=== PATIENT | female | born 1940 | race African-American/Black ===

== ENCOUNTER 2016-10-23 02:42 | Inpatient (IN) ==
[~2016-10-23 02:42] MED LIST: ASPIRIN PO STA
[2016-10-23 03:05] LABS: HEMATOCRIT 36.4 % (37.0-47.0); HEMOGLOBIN 12.4 g/dL (12.0-16.0); IMM GRAN# 0.02 X1000 (0.0-0.04); IMM GRAN% 0.2 % (0.0-0.5); LYMPH# 0.66 X1000 (1.2-3.4); LYMPH% 5.4 % (20.5-51.1); MANUAL DIFF NEEDED? YES; MCH 24.7 PG (27-31); MCHC 34.1 g/dL (33-37); MCV 72.4 FL (81-99); MONO# 0.43 X1000 (0.11-0.59); MONO% 3.5 % (1.7-9.3); MPV 10.2 FL (7.4-10.4); NEUT% 90.9 % (42.2-75.2); PLT 562 X1000 (130-400); RBC 5.03 XMIL (4.2-5.4)
[2016-10-23 03:27] LABS: AGAP 14; ALBUMIN 3.4 g/dL (3.5-5.0); ALKALINE PHOSPHATASE 64 U/L (32-104); BUN 16 mg/dL (8-22); CHLORIDE 96 mmol/L (98-107); CK PROFILE 83 U/L (24-173); COSMO 279; GOT 22 U/L (10-30); GPT 15 U/L (10-36); MAGNESIUM 2.4 mg/dL (1.5-2.7); SODIUM 136 mmol/L (136-145); TCO2 26 mmol/L (25-35); TOTAL BILIRUBIN 0.48 mg/dL (0.20-1.00); TOTAL PROTEIN 7.8 g/dL (6.3-8.3)
[2016-10-23] MEDS ORDERED: ROCEPHIN 1 GM/NS 1 GM/50 ML IVPB IV ONE (03:32)
[2016-10-23 03:41] LABS: INR 1.17; PROTIME 12.4 Seconds (9.2-11.7); PTT 25.5 Seconds (22.0-36.0)
[2016-10-23] MEDS ORDERED: LASIX IV ONE (04:34)
--- NOTE | 2016-10-23 04:46 | PROVIDER DOCUMENTATION ---
This chart was entered by Aidee Webber Scribe, acting as scribe for Cornelius Rea MD. HPI-Respiratory General - General Stated Complaint: sob Time Seen by Provider: 10/23/16 02:45 Source: patient Allergies/Adverse Reactions: Patient Allergies Allergy/AdvReac Type Severity Reaction Status Date / Time clarithromycin Allergy NAUSEA Verified 10/23/16 03:09 doxycycline Allergy NAUSEA Verified 10/23/16 03:09 hydrocodone AdvReac racing Verified 10/23/16 03:09 heart Home Medications: Home Medication List Medication Instructions Recorded Confirmed Last Taken Type Aspirin [Aspir-Low] 81 mg PO DAILY 10/02/16 10/23/16 3 Weeks Ago History Calcium Carb/Vit D3/Minerals 600 each PO DAILY 10/02/16 10/23/16 2 Days Ago History [Caltrate 600+D Plus Chew] Calcium Carbonate [Oscal 500] 1 each PO DAILY 10/02/16 10/23/16 3 Weeks Ago History Diltiazem HCl [Cardizem] 120 mg PO DAILY 10/02/16 10/23/16 10/22/16 History Folic Acid 0.4 mg PO DAILY 10/02/16 10/23/16 10/22/16 History Gabapentin 100 mg PO BID 10/02/16 10/23/16 Unknown History Glimepiride 1 mg PO BID 10/02/16 10/23/16 10/22/16 14:00 History LISINOpril [Prinivil] 2.5 mg PO DAILY 10/02/16 10/23/16 10/22/16 History Meloxicam 7.5 mg PO PRN PRN 10/02/16 10/23/16 Unknown History Multivit-Minerals/Folic/Ginkgo 1 each PO DAILY 10/02/16 10/23/16 10/22/16 History [One Daily For Women 50+ Adv Tb] [place]-3 Fatty Acids/Fish Oil [Fish 1 each PO DAILY 10/02/16 10/23/16 2 Weeks Ago History Oil 1,000 mg Capsule] ROSUVAstatin [Crestor] 10 mg PO Q2D 10/02/16 10/23/16 10/20/16 History Vitamin E 400 unit PO DAILY 10/02/16 10/23/16 10/22/16 History Famotidine [Pepcid] 20 mg PO DAILY 10/23/16 10/23/16 10/22/16 History Furosemide [Lasix] 20 mg PO DAILY 10/23/16 10/23/16 10/22/16 History Guaifenesin/Codeine Phosphate 5 ml PO Q12H PRN PRN 10/23/16 10/23/16 Unknown History [Codeine-Guaifen 10-100 mg/5 ml] Ondansetron HCl [Zofran] 8 mg PO Q8HR 10/23/16 10/23/16 Unknown History Prochlorperazine [Compazine] 10 mg PO TID PRN PRN 10/23/16 10/23/16 Unknown History - History of Present Illness-Resp Nature of Presenting Problem: 76 year old F presents to the ED with a cc of shortness of breath, weakness, and fatigue with an onset of 2 days ago. 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 Pt states that she has also had decreased appetite. Severity in ED: reports: mild Onset/Duration: reports: 2 days ago Timing: reports: still present Associated Symptoms: reports: shortness of breath Similar Symptoms Previously?: No Recently seen or treated by another doctor?: Yes Review of Systems - Adult - REVIEW OF SYSTEMS - ADULT Constitutional: reports: fatique. denies: chills, fever Eyes: reports: no symptoms reported Ears, Nose, Mouth & Throat: reports: no symptoms reported Cardiovascular: reports: no symptoms reported Respiratory: reports: shortness of breath. denies: cough Gastrointestinal: denies: nausea, vomiting Genitourinary: reports: no symptoms reported Musculoskeletal: reports: muscle weakness. denies: muscle aches Integumentary: denies: skin sores/ulcer, skin thickening Neurological: denies: dizziness/vertigo, headache/migraines Psychiatric: reports: no symptoms reported Endocrine: reports: no symptoms reported Hematologic/Lymphatic: reports: no symptoms reported Allergic/Immunologic: reports: no symptoms reported All Other Systems: Reviewed and Negative Past History - Adult - PAST MEDICAL HISTORY-ADULT Review of Records: reports: Nursing Assessment Review, Medications Reviewed Major Childhood Illnesses: reports: denies history Cardiovascular: reports: HTN Obstetrical/Gynecological: reports: uterine/ovarian cancer - PRIOR SURGERIES/PROCEDURES Surgical/Procedure History: reports: none - IMMUNIZATION STATUS Childhood Immunizations: See Nurse Assessment Flu Vaccine: See Nurse Assessment - SOCIAL HISTORY Smoking: non-smoker Substance Use: none/never Alcohol Use Frequency: never Physical Exam-General - PHYSICAL EXAM-ADULT Initial Vital Signs Reviewed: Yes - CONSTITUTIONAL General Appearance: appears well, alert, no apparent distress - RESPIRATORY Respiratory: rhonchi - CARDIOVASCULAR Cardiovascular: normal peripheral pulses, regular rate, rhythm, no edema - GASTROINTESTINAL (ABDOMEN) Abdominal Exam: distended, rigid - SKIN Integumentary: normal color, normal turgor, warm/dry - PSYCHIATRIC Psych/Mental Status: normal mood/affect, normal thought content, normal thought process, oriented x 3 Progress - PLAN OF CARE/RESULTS Progress/Plan/Lab Results: Vital Signs - 8 hr 10/23/16 02:49 Temperature 98.6 F Pulse Rate 114 H Respiratory Rate 31 H Blood Pressure 129/67 O2 Sat by Pulse Oximetry 94 L Laboratory Results - last 24 hr 10/23/16 10/23/16 10/23/16 02:45 02:45 02:45 WBC 12.21 H RBC 5.03 Hgb 12.4 Hct 36.4 L MCV 72.4 L MCH 24.7 L MCHC 34.1 RDW Std Deviation 16.2 H Plt Count 562 H MPV 10.2 Immature Gran % (Auto) 0.2 Neut % (Auto) 90.9 H Lymph % (Auto) 5.4 L Lake % (Auto) 3.5 Eos % (Auto) 0.0 Baso % (Auto) 0.0 Immature Gran # (Auto) 0.02 Neut # (Auto) 11.10 H Lymph # (Auto) 0.66 L Lake # (Auto) 0.43 Eos # (Auto) 0.00 Baso # (Auto) 0.00 Segmented Neutrophils Cancelled Band Neutrophils Cancelled Lymphocytes Cancelled Monocytes Cancelled Eosinophils Cancelled Basophils Cancelled Metamyelocytes Cancelled Myelocytes Cancelled Promyelocytes Cancelled Nucleated RBCs Cancelled Atypical Lymphocytes Cancelled Blast Cells Cancelled Hypochromia Cancelled Vacuolization Cancelled Toxic Granulation Cancelled Dohle Bodies Cancelled Large Platelets Cancelled Polychromasia Cancelled Poikilocytosis Cancelled Basophilic Stippling Cancelled Anisocytosis Cancelled Microcytosis Cancelled Macrocytosis Cancelled Spherocytes Cancelled Sickle Cells Cancelled Target Cells Cancelled Ovalocytes Cancelled Stomatocytes Cancelled [place] Bodies Cancelled [place] Cells Cancelled Unidentified Cells Cancelled Schistocytes Cancelled PT INR PTT (Actin FS) Sodium 136 Potassium 4.0 Chloride 96 L Carbon Dioxide 26 Anion Gap 14 BUN 16 Creatinine 0.7 Estimated GFR/1.73 m2 > 60 BUN/Creatinine Ratio 23 Glucose 208 H POC Glucose Calculated Osmolality 279 Calcium 9.0 Magnesium 2.4 Total Bilirubin 0.48 AST 22 ALT 15 Alkaline Phosphatase 64 Creatine Kinase 83 Troponin T Tre-S-Cltgmdmqkdu Pept 632 H Total Protein 7.8 Albumin 3.4 L Globulin 4.4 Albumin/Globulin Ratio 0.8 10/23/16 10/23/16 10/23/16 02:45 03:25 03:26 WBC RBC Hgb Hct MCV MCH MCHC RDW Std Deviation Plt Count MPV Immature Gran % (Auto) Neut % (Auto) Lymph % (Auto) Lake % (Auto) Eos % (Auto) Baso % (Auto) Immature Gran # (Auto) Neut # (Auto) Lymph # (Auto) Lake # (Auto) Eos # (Auto) Baso # (Auto) Segmented Neutrophils Band Neutrophils Lymphocytes Monocytes Eosinophils Basophils Metamyelocytes Myelocytes Promyelocytes Nucleated RBCs Atypical Lymphocytes Blast Cells Hypochromia Vacuolization Toxic Granulation Dohle Bodies Large Platelets Polychromasia Poikilocytosis Basophilic Stippling Anisocytosis Microcytosis Macrocytosis Spherocytes Sickle Cells Target Cells Ovalocytes Stomatocytes [place] Bodies [place] Cells Unidentified Cells Schistocytes PT 12.4 H INR 1.17 PTT (Actin FS) 25.5 Sodium Potassium Chloride Carbon Dioxide Anion Gap BUN Creatinine Estimated GFR/1.73 m2 BUN/Creatinine Ratio Glucose POC Glucose 215 H Calculated Osmolality Calcium Magnesium Total Bilirubin AST ALT Alkaline Phosphatase Creatine Kinase Troponin T < 0.010 Stj-S-Pxthjomryhs Pept Total Protein Albumin Globulin Albumin/Globulin Ratio Orders Category Date Time Status Cardiac Monitoring DIRECTED Care 10/23/16 02:40 Active Saline Loc NOW Care 10/23/16 02:40 Active CHEST-1 VIEW [RAD] Stat Exams 10/23/16 02:40 Taken BLOOD CULTURE [BLDCUL] Stat Lab 10/23/16 03:45 Ordered CBC WITH ELECTRONIC DIFF [HEME] Stat Lab 10/23/16 02:45 Completed CK PROFILE [SP CHEM] Stat Lab 10/23/16 02:45 Completed COMPREHENSIVE METABOLIC PANEL [CHEM] Stat Lab 10/23/16 02:45 Completed LACTATE, PLASMA [CHEM] Stat Lab 10/23/16 03:45 Ordered MAGNESIUM [CHEM] Stat Lab 10/23/16 02:45 Completed PRO B-NATRIURETIC PEPTIDE Stat Lab 10/23/16 02:45 Completed PROTIME WITH INR [COAG] Stat Lab 10/23/16 03:25 Completed PTT [COAG] Stat Lab 10/23/16 03:25 Completed TROPONIN T Stat Lab 10/23/16 02:45 Completed Aspirin Med 10/23/16 02:39 Discontinued 325 mg PO STAT STA CefTRIAXONE 1 GM/NS [Rocephin 1 gm/Ns] Med 10/23/16 03:32 Discontinued 1 gm in 50 ml IV NOW Furosemide [Lasix] Med 10/23/16 04:34 Discontinued 60 mg IV NOW ONE EKG [EKG] Stat Ther 10/23/16 02:40 Ordered Transfer/Admit Order [TRANSFER] Routine Transfer 10/23/16 04:43 Ordered Result Diagrams: 10/23/16 02:45 10/23/16 02:45 - EKG 1 Time of EKG reading by physician:: 02:34 EKG Read and Signed by:: Cornelius Rea EKG Interpretation (*Must complete 3 of following elements*): Normal Rate: 112 Rhythm: sinus tachycardia Colo: normal Departure - Departure Time of Disposition Decision: 04:44 DIAGNOSIS: Pneumonia Disposition: ADMITTED INPATIENT 09 Certified Medical Emergency: Emergent Condition: Stable - Critical Care Note This patient required my direct & personal management of CC.: Yes Attestation - Physician/ FAUSTO Attestation Patient care was provided by Advanced Practice Provider:: Yes Advanced Practice Provider documentation review:: The Mid-level provider documentation, treatment plan and medical decision making was reviewed by the physician who agrees with all treatment and medical decision making by the MLP. The physician spent face to face time with patient:: Yes Advanced Practice Provider documentation review:: The physician spent face to face time with this patient and agrees with all MLP documentation, treatment, and medical decision making by the MLP. See provider notes for further information. This chart was documented by the indicated scribe, (Aidee Webber Scribe) and accurately reflects the services I performed and decisions made by , Cornelius Rea MD, as attested by the provider's signature.
[2016-10-23] MEDS ORDERED: ZOFRAN IV ONE (05:03)
--- NOTE | 2016-10-23 05:10 | EKG Report ---
Test Performed on : 10/23/2016 02:34:19 AM Test Reason : SOB Blood Pressure : / mmHG Vent. Rate : 112 BPM Atrial Rate : 112 BPM P-R Int : 124 ms QRS Dur : 082 ms QT Int : 334 ms P-R-T Axes : 009 043 039 degrees QTc Int : 455 ms Sinus tachycardia. Otherwise normal ECG When compared with ECG of 23-APR-2008 10:45, No significant change was found Unconfirmed Result
[2016-10-23] MEDS ORDERED: PROTONIX IV SCH (06:08)
[2016-10-23] MEDS ORDERED: TYLENOL PO PRN (06:08)
[2016-10-23] MEDS ORDERED: COMPAZINE PO PRN (06:08)
[2016-10-23] MEDS ORDERED: ROBITUSSIN-AC PO PRN (06:08)
--- NOTE | 2016-10-23 06:16 | Diag Imaging Result Document ---
PROCEDURE NAME: CHEST-1 VIEW - 10/23/2016 PORTABLE CHEST: COMPARISON: 09/25/2016. FINDINGS: There is a moderate-sized left effusion. This is larger than on the prior exam. Poor inspiratory effort. I believe there is a small right effusion. There is central vascular prominence. The lung apices remain clear. There is atelectasis or infiltrates in the lower lungs. IMPRESSION: Interval worsening.
--- NOTE | 2016-10-23 06:29 | Diag Imaging Result Document ---
PROCEDURE NAME: LAT. DECUBITUS VIEW-LEFT - 10/23/2016 LEFT SIDE DOWN LATERAL DECUBITUS VIEW: COMPARISON: An upright exam performed earlier. FINDINGS: There is layering of a moderate to large left pleural effusion.
[2016-10-23 06:31] LABS: URINE CULTURE NEEDED? NO; URINE MICRO REVIEW NEEDED? NO; URINE SOURCE CLEAN CATCH
[2016-10-23] MEDS: CRESTOR PO SCH (06:41)
[2016-10-23] MEDS: LEVAQUIN 750 MG in NS 150 ML IV SCH (06:41)
[2016-10-23] MEDS: LOVENOX SUBQ SCH (06:42)
[2016-10-23] MEDS: SODIUM CHLORIDE 0.9% INJ SCH (06:42)
[2016-10-23 06:43] LABS: BILIRUBIN URINE NEGATIVE (NEGATIVE); BLOOD URINE NEGATIVE (NEGATIVE); COLOR YELLOW; GLUCOSE URINE NEGATIVE (NEGATIVE); LEUKOCYTES URINE NEGATIVE (NEGATIVE); NITRITE URINE NEGATIVE (NEGATIVE); PH URINE 6.5; PROTEIN URINE NEGATIVE (NEGATIVE); SP GRAVITY URINE 1.011; TURBIDITY URINE CLEAR (CLEAR); UROBILINOGEN URINE NORMAL (NORMAL)
[2016-10-23 06:45] LABS: UR EPITHELIAL CELLS <10 /HPF (<10); URINE BACTERIA NEGATIVE /HPF; URINE RBC <10 /HPF (<10); URINE WBC <10 /HPF (<10)
[2016-10-23] MEDS: HUMALOG SUBQ SCH ×3 (06:49→23:09)
--- NOTE | 2016-10-23 08:36 | HISTORY AND PHYSICAL ---
PRIMARY CARE PROVIDER: Katherin Holly MD ONCOLOGIST: Dahlia Albert MD CHIEF COMPLAINT: Shortness of breath. HISTORY OF PRESENT ILLNESS: Ms. Bolton is a 76-year-old, female with a past medical history most notable for diabetes mellitus type 2, hypertension, hyperlipidemia and recent diagnosis of ovarian cancer with metastasis intraperitoneally. She did receive her first chemo treatment on Wednesday approximately 2 days ago. The patient reports that since October, she has had issues with shortness of breath. This has become increasingly worse. Also, over the past few days, she has had productive cough with thick white sputum, fever, decreased appetite, as well as nausea. She did report that she had 1 episode of vomiting yesterday. She has also reported some increased weakness and fatigue as well. The patient is not normally on oxygen therapy at home. Upon arrival to the ER tonight, she was slightly hypoxic with a room air oxygen saturation of 89%. Since being placed on nasal cannula at 2 L, this has improved with the last oxygen saturation of 96%. She denies any headache, dizziness, lightheadedness, chest pain, abdominal pain or diarrhea. She reports her last bowel movement was yesterday and was normal in color. She denies any hematemesis, hematochezia or melena. She denies any dysuria or urinary frequency. She also denies any decrease and her urinary output. She denies any pain, numbness, tingling or swelling in extremities. She also denies any previous history of pulmonary embolism or DVT. Upon further evaluation in the ER, patient's initial chest x-ray does show a moderate sized left pleural effusion, as well as a possible right small right pleural effusion as well. There is also noted atelectasis or infiltrates in the lower lungs. At this time, the patient will be admitted for further treatment evaluation of her bilateral lower lobe pneumonia, as well as moderate-to- large left pleural effusion. REVIEW OF SYSTEMS: A 12-point review of systems was conducted with the patient and all were negative except for pertinent positives mentioned above in the HPI. PAST MEDICAL HISTORY: 1. Diabetes mellitus type 2. 2. Hypertension. 3. Hyperlipidemia. 4. Recent diagnosis of ovarian cancer with metastasis intraperitoneally. She is currently being followed by Dr. Albert and received her 1st chemo treatment on Wednesday, approximately 2 days ago. PAST SURGICAL HISTORY: 1. Tubal ligation. 2. Cholecystectomy. 3. Umbilical hernia repair. 4. Hysterectomy. 5. Appendectomy. FAMILY HISTORY: Positive for diabetes mellitus and hypertension in her mother. Her father had a history of hypertension and heart disease. She does have 1 brother who has a history of stroke and 1 sister with a history of hypertension. SOCIAL HISTORY: Patient denies any previous or present history of tobacco, alcohol or illicit drug use. ALLERGIES: Patient reports allergies to clarithromycin, doxycycline and hydrocodone. HOME MEDICATIONS: 1. Aspirin 81 mg p.o. daily. 2. Caltrate 600 Plus D, chewable, 600 mg p.o. daily. 3. Os-[place]att 500 one p.o. daily. 4. Cardizem 120 mg p.o. daily. 5. Pepcid 20 mg p.o. daily. 6. Folic acid 0.4 mg p.o. daily. 7. Lasix 20 mg p.o. daily. 8. Gabapentin 100 mg p.o. b.i.d. 9. Glimepiride 1 mg p.o. b.i.d. 10. Codeine-guaifenesin 10-100 mg per 5 mL, cough suspension 5 mL p.o. q.12 hours p.r.n. for cough. 11. Lisinopril 2.5 mg p.o. daily. 12. Multivitamin 1 p.o. daily. 13. Fish oil 1000 mg capsule 1 p.o. daily. 14. Zofran 8 mg p.o. q.8 hours p.r.n. for nausea. 15. Compazine 10 mg p.o. t.i.d. p.r.n. for nausea. 16. Crestor 10 mg p.o. every 2 days. 17. Vitamin E 400 units p.o. daily. DIAGNOSTIC DATA LABORATORY RESULTS: White blood cell count 12.2, hemoglobin 12.4, hematocrit 36.4, platelet count is 562,000. PT 12.4, INR of 1.17, PTT 25.5. Sodium 136, potassium 4, chloride 96, bicarb 26, BUN 16, creatinine 0.7. Glucose is 208, calcium 9, magnesium 2.4. Liver function tests were within normal limits. CK 83, troponin less than 0.01. ProBNP 632. Her urinalysis was obtained via clean catch, was negative for protein, ketones, blood, nitrites, leukocytes, or bacteria. EKG showed sinus tachycardia at a rate of 112 with a QTc of 455. Chest, 1 view, was obtained which did show moderate sized left effusion. This appeared larger than on prior exam. There was also noted a possible right small pleural effusions as well. Also, noted was atelectasis or infiltrates in lower lungs. This is per the radiologist. We did obtain a left lateral decubitus view, which did show layering of a [id number] left pleural effusion also. Pending diagnostic studies at this time are blood cultures and sputum culture. PHYSICAL EXAMINATION: VITAL SIGNS: Temperature 98.2 degrees, heart rate 110, respirations 24, blood pressure is 122/64. Oxygen saturation is 96% nasal cannula at 2 L. GENERAL: Ms. Bolton is a pleasant 76-year-old, female who was resting in the ER stretcher. She was in no acute distress. She was awake, alert and able to answer all questions appropriately. HEENT: Head is atraumatic, normocephalic. Pupils are equal, round, reactive to light and were 3 mm bilaterally and brisk. Oral mucosa was slightly dry. Oropharynx was clear. NECK: Supple. Trachea midline. No JVD noted. CARDIOVASCULAR: Patient has normal S1, S2. No murmurs, gallops, rubs appreciated with a slightly tachycardic rate that is regular. PULMONARY: Patient has symmetrical chest expansion bilaterally. Lung sounds were clear in bilateral upper lung moreno. They were diminished bilaterally in the lower lung moreno. ABDOMEN: Soft, nontender, nondistended. Bowel sounds were present in all 4 quadrants and normoactive. EXTREMITIES: No cyanosis, clubbing, or edema noted. Pulse motor and sensory were intact in all extremities as well. Pedal pulses were 2+ bilaterally. INTEGUMENTARY: The patient's skin color is normal for her race and is dry and intact. No lesions or sores noted. NEUROLOGICAL: Patient is alert, oriented to person, place, time, and situation. Cranial nerves 2- 12 are grossly intact. ASSESSMENT AND PLAN: 1. Bilateral lower lobe pneumonia and [id number] left pleural effusion. For this, we have placed the patient on Levaquin 750 mg IV q.24 hours. Blood cultures as well as sputum culture have been obtained. We will continue with aggressive pulmonary toilet, incentive spirometry and will monitor her respiratory status closely. At this time, the patient is maintaining adequate oxygen saturation of 96% on nasal cannula at 2 L and is in no respiratory distress. 2. Leukocytosis. This is likely secondary to her pneumonia. We will continue treatment as mentioned per #1 and continue to follow. 3. Ovarian cancer with metastasis intraperitoneally. We have placed a consult with Dr. Albert, who is the patient's oncologist and will await her evaluation and further recommendations for management of this. 4. Diabetes mellitus type 2. The patient normally takes glimepiride 1 mg p.o. b.i.d., though for better blood glucose control, we have placed her on a sliding scale lispro insulin per low- dose protocol and we will do pattern fingerstick blood sugars and closely monitor her glucose levels. 5. History of tachycardia. The patient denied any known previous history of atrial fibrillation or atrial flutter. She reported that she takes the Cardizem for an elevated heart rate. We will continue this. She has been placed on telemetry and we will closely monitor her cardiovascular status. 6. Hypertension. Will continue her lisinopril. 7. Hyperlipidemia. We will continue her Crestor. The patient will be placed on the medical floor with telemetry. She will have vital signs q.4 hours. We will do strict intake and output q.8 hours. She will be on a diabetic diet. DVT prophylaxis provided with Lovenox 40 mg subcutaneously q.24 hours. We will repeat a CBC and BMP in the morning. Further orders and recommendations pending hospital course, diagnostic studies and physician evaluation. Dictated by KEYSHA Sherwood for Tye Miranda MD cc: MD Katherin Isabel MD Heather Shah, MD MTDD
[2016-10-23] MEDS: FOLIC ACID PO SCH (09:20)
[2016-10-23] MEDS: THERA M PLUS PO SCH (09:20)
[2016-10-23] MEDS: CARDIZEM CD PO SCH (09:20)
[2016-10-23] MEDS: NEURONTIN PO SCH ×2 (09:20→20:17)
[2016-10-23] MEDS: ASPIRIN EC PO SCH (09:21)
[2016-10-23] MEDS: PRINIVIL PO SCH (09:21)
[2016-10-23] MEDS: PEPCID PO SCH (09:22)
--- NOTE | 2016-10-23 13:03 | CONSULTATION ---
DATE OF CONSULTATION: 10/23/2016 REASON FOR CONSULTATION: The patient known to us for peritoneal/ovarian carcinoma. HISTORY OF PRESENT ILLNESS: Ms. 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 She recently received her 1st dose of chemotherapy with carbo and Taxol on 10/21/2016. Patient has been having shortness of breath for some time which was felt to be related to her bilateral pleural effusions, as well as the ascites that she has had since her diagnosis. The patient's Lasix was increased as an outpatient. After her chemo treatment, the patient returned home and started feeling even more weak and more short of breath. She presented to the emergency department and a chest x-ray there revealed her to have bilateral pleural effusions, as well as the possibility of some infiltrates. Patient was also hypoxic with an O2 saturation of 89% upon presentation. She has been admitted for further evaluation and treatment. PAST MEDICAL HISTORY: 1. Diabetes mellitus type 2. 2. Hypertension. 3. Hyperlipidemia. 4. Ovarian carcinoma. 5. 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 PAST SURGICAL HISTORY: 1. Tubal ligation. 2. Cholecystectomy. 3. Umbilical hernia repair. 4. Hysterectomy. 5. Appendectomy. SOCIAL HISTORY: Patient denies any tobacco, alcohol or illicit drug use. She has a very supportive family. FAMILY HISTORY: Positive for diabetes as well as hypertension and heart disease. Also has a history of stroke in her family. REVIEW OF SYSTEMS: As per the HPI. All else is either negative or noncontributory. PHYSICAL EXAMINATION: Vital Signs: Temperature 98.8 degrees, heart rate 103, respirations 18, blood pressure 104/41, O2 saturations 95% on 2 L of nasal cannula. General: -Citizen Of [place] female, sitting up in her hospital bed. She has several family members around her. She is in no acute distress. HEENT: Head appears to be normocephalic, atraumatic. Eyes: Pupils equal, round, reactive. Ears, nose, throat, neck, and mouth: Oral mucosa appears to be normal. Trachea is midline. Cardiovascular: Tachycardia noted. Regular rhythm. Respiratory: Chest is essentially clear to auscultation bilaterally. She does have decreased breath sounds bilaterally in her bases. Gastrointestinal: Abdomen is distended with some ascites. Positive bowel sounds. Musculoskeletal: No bony abnormalities. Extremities: She has some bilateral extremity edema that appears to be overall stable. Neurologic: Patient is alert, and oriented x3. No focal motor deficits. She does appear to be weak. LABORATORY STUDIES: White blood cells 12.21, hemoglobin 12.4, hematocrit 36.4, platelets 562,000. Sodium 136, potassium 4.0, chloride 96, CO2 26, BUN 16, creatinine 0.7, ProBNP is 632. She has a moderate-sized left pleural effusion. ASSESSMENT AND PLAN: 1. Primary peritoneal carcinoma/ovarian carcinoma. Patient is currently receiving chemotherapy as an outpatient. She is status post cycle 1, day 1 of Carbo/Taxol on 10/21/2016. 2. Infiltrates on chest x-ray/pneumonia. Patient is currently receiving IV antibiotics. She also is receiving O2 support. Continue both. Continue to monitor her chest x-ray. Just antibiotics as needed. 3. Bilateral pleural effusions with the left being slightly worse when compared to previous. Continue to monitor. Consider a paracentesis if she were to become very symptomatic. She has received some diuresis as well. Continue to monitor. 4. Decreased appetite. Patient and family report that she has a very decreased appetite. We will go ahead and encourage her to consume some dietary supplements. Will order those to be given to her with her meals. Also recommended her trying to divide her meals up into 2 smaller meals. We will continue to monitor. We want to thank you for consulting us on this patient. We will continue to follow along and adjust our treatment plan per her hospital course. Dictated by JEANNIE Samano for Dahlia Albert MD cc: Dahlia Albert MD
[2016-10-23] MEDS ORDERED: VANCOMYCIN IV PER PHARMACY MISC SCH (16:45)
--- NOTE | 2016-10-23 17:19 | PROGRESS NOTE ---
DATE: 10/23/2016 SUBJECTIVE: Today, Ms. Bolton referred to continue feeling the same. She is extremely weak and having difficulty breathing. Has been progressively declining over the course of a couple of weeks. OBJECTIVE: Vital Signs: Blood pressure is 104/41, pulse of 103, respirations 18, temperature 98.8 degrees. General: Ms. Bolton is a 76-year-old female. She is in bed, in mild respiratory distress. HEENT: Mucosa pink and moist. Anicteric. Acyanotic. Neck: Supple. Chest: Air entry is bilaterally reduced, more so to the right posterior lung field. There are some bibasilar crepitations. Cardiovascular: Regular rate and rhythm. Abdomen : Soft. It is distended. There is an infraumbilical surgical scar. There is an irregular mass in the right lower abdomen. Central Nervous System: Patient is alert and oriented. No focal neurological deficit. LABORATORY DATA: WBC is 12.21, hemoglobin is 12.4, platelet count is 562,000. Sodium is 136, potassium is 4.4, chloride is 96, bicarbonate is 26, protein is 7.8. REVIEW OF PREVIOUS REPORT: There is a cytology report of abdominal ascitic fluid that is consistent with malignancy from ovarian component. This was done on 10/02/2016. IMAGING: A CT scan of the abdomen and pelvis which was done on 09/25/2016 shows large omental cakes of masses consistent with intraperitoneal spread malignancy, ovarian cancer suspected. There is ascites. There are bilateral pleural effusions. ASSESSMENT: 1. Suspected right lower lobe pneumonia with pleural effusions. The patient is currently on Levaquin. However, because patient had chemotherapy just about 3 days ago and she has been in contact with healthcare, I will therefore go ahead and treat her for healthcare-associated pneumonia. Will start her on double coverage for Pseudomonas and also cover her for Methicillin-resistant Staphylococcus aureus. We will therefore add cefepime and vancomycin. 2. Metastatic ovarian cancer. The patient follows up with Dr. Albert. 3. Diabetes mellitus, stable. 4. Hypertension. 5. Chronically ill/failure to thrive, likely due to underlying malignancy. I think patient is actually looking extremely sick due to the underlying malignancy; however, the family and herself want to pursue every possible therapy that will supposedly make her better. We did discuss DNR status and they want her to be still full code. Patient has microcytic anemia. We will do iron studies to r/o possible underlying iron deficiency. cc: Brayden Ruiz MD MTDD
[2016-10-23] MEDS ORDERED: VANCOMYCIN 1,600 MG in NS 250 ML IV ONE (18:00)
[2016-10-23] MEDS: MAXIPIME 1 GM/NS 1 GM/50 ML IVPB IV SCH (19:27)
[2016-10-23] MEDS: ZOFRAN IV PRN (20:16)
[2016-10-24] MEDS: MAXIPIME 1 GM/NS 1 GM/50 ML IVPB IV SCH ×2 (05:29→17:33)
[2016-10-24] MEDS: LEVAQUIN 750 MG in NS 150 ML IV SCH (06:09)
[2016-10-24] MEDS: LOVENOX SUBQ SCH (06:10)
[2016-10-24] MEDS: HUMALOG SUBQ SCH ×4 (06:10→20:39)
[2016-10-24 06:41] LABS: EOS# 0.04 X1000 (0.0-0.7); EOS% 0.7 % (0.0-10.0); HEMATOCRIT 32.4 % (37.0-47.0); HEMOGLOBIN 10.5 g/dL (12.0-16.0); LYMPH# 0.55 X1000 (1.2-3.4); LYMPH% 9.6 % (20.5-51.1); MANUAL DIFF NEEDED? YES; MCH 23.8 PG (27-31); MCHC 32.4 g/dL (33-37); MCV 73.5 FL (81-99); MONO# 0.14 X1000 (0.11-0.59); MONO% 2.4 % (1.7-9.3); MPV 10.3 FL (7.4-10.4); NEUT% 87.3 % (42.2-75.2); PLT 446 X1000 (130-400); RBC 4.41 XMIL (4.2-5.4)
[2016-10-24 06:49] LABS: LYMPHS 10 % (21-51); MONO 2 % (1-9)
[2016-10-24 07:02] LABS: IRON SATURATION 51 %; TIBC 184 ug/dL; TOTAL IRON 93 ug/dL (49-151); UNBOUND IRON 91 ug/dL (112-346)
[2016-10-24 07:03] LABS: AGAP 13; BUN 15 mg/dL (8-22); CALCIUM 8.2 mg/dL (8.8-10.2); CHLORIDE 97 mmol/L (98-107); COSMO 270; POTASSIUM 4.1 mmol/L (3.5-5.1); SODIUM 134 mmol/L (136-145); TCO2 24 mmol/L (25-35)
[2016-10-24 07:36] LABS: FERRITIN 500 ng/mL (13-150)
[2016-10-24] MEDS: THERA M PLUS PO SCH (09:15)
[2016-10-24] MEDS: CARDIZEM CD PO SCH (09:15)
[2016-10-24] MEDS: NEURONTIN PO SCH ×2 (09:15→20:39)
[2016-10-24] MEDS: PRINIVIL PO SCH (09:15)
[2016-10-24] MEDS: FOLIC ACID PO SCH (09:15)
[2016-10-24] MEDS: PEPCID PO SCH (09:15)
[2016-10-24] MEDS: ASPIRIN EC PO SCH (09:15)
--- NOTE | 2016-10-24 12:56 | PROGRESS NOTE ---
DATE: 10/24/2016 Today Ms. Bolton refers to be doing a little better. Continues to have residual shortness of breath. She says she feels slightly stronger than yesterday. OBJECTIVE: Vital signs: Blood pressure is 113/71, pulse of 93, respirations 20, temperature 97.7 degrees. Patient is saturating 93-95 on nasal cannula. General: Objectively Ms. Bolton is a 76- year-old female. She is in bed. She is mildly tachypneic. HEENT: Mucosa is slightly pink. Anicteric and acyanotic. Neck: Supple. Chest: Air entry is bilaterally reduced more to the posterior lung moreno bilaterally. There is a few bibasilar crepitations. I did not appreciate any rhonchi or any wheezing. Cardiovascular: Tachycardic but no murmurs, no rubs, no gallops. Abdomen: Soft. There is an old infraumbilical surgical scar and there is also an irregular mass in the right lower abdomen. 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 There is no focal neurological deficit. LABORATORY DATA: WBC is 5.73, hemoglobin is 10.5, platelet count 446,000. There are no bands on the peripheral smear. Chemistry is reviewed. Sodium is 134, potassium is 4.1, chloride 97. Iron studies show ferritin is 500, percent saturation is 51 and iron is 93. ASSESSMENT: 1. Left lower lobe consolidation with pleural effusion suspicious for pneumonia with parapneumonic effusion. The patient is currently on IV antibiotics. Seems to be doing slightly better. 2. Left large pleural effusion. Unsure of the etiology. This is suspicious to be parapneumonic effusion however patient also has ascites which previous studies has shown is a metastatic and malignant ascites. I am wondering if this is also part that has migrated to the pleural space. We will do a diagnostic tap today to see what type of fluid it is and send it for studies. 3. Metastatic ovarian cancer with malignant ascites. Patient is followed up by Dr. Albert. 4. Diabetes mellitus stable. 5. Hypertension stable. 6. Failure to thrive. Likely due to underlying malignancy. 7. Mild respiratory distress likely due to underlying pneumonia and the pleural effusions. 8. Microcytic anemia due to chronic disease. Iron studies have been done. They are unremarkable. So today Ms. Bolton is doing a little better. We are going to do a left thoracentesis to characterize the pleural effusion and also hopefully will alleviate a little bit her shortness of breath. We will continue with the current antibiotic coverage and I am awaiting further recommendations from Dr. Albert who is her oncologist. cc: Brayden Ruiz MD
--- NOTE | 2016-10-24 15:21 | Diag Imaging Result Document ---
PROCEDURE NAME: CHEST-2 VIEWS - 10/24/2016 PA AND LATERAL RADIOGRAPH OF THE CHEST: COMPARISON: 10/23/2016. FINDINGS: There is no evidence of pneumothorax status post left thoracentesis. The left pleural effusion has markedly reduced since the procedure. There is residual atelectasis at the left lung base. There is a stable small right effusion with right basilar atelectasis. No new consolidations are identified. Cardiac silhouette is stable. IMPRESSION: No evidence of pneumothorax status post left thoracentesis.
[2016-10-24 15:30] LABS: SPECIMEN PLEURAL FLUID
[2016-10-24 16:23] LABS: DIFF NEEDED? YES; MONOS 96 %; POLYS 4 %; WBC BF 360 /cumm
--- NOTE | 2016-10-24 17:55 | OPERATIVE NOTE ---
PROCEDURE DATE: 10/24/2016 Time of procedure was 2:30 p.m. TYPE OF PROCEDURE: Left thoracentesis. INDICATION: Pleural fluid with shortness of breath. PROCEDURE: A written consent was previously obtained. The procedure was explained in details to Ms. Bolton. Both risks and benefits were explained and Ms. Bolton signed the consent and asked to proceed. Ultrasound was called to the floor to scan the posterior chest for a better pocket. The left posterior lungs about the 6th intercostal space posteriorly was demarcated for a better pocket found. Time-out was called. Patient was identified with 2 identifiers and the procedure was called out to make sure it is on the right patient, the right procedure. The area was cleaned, sterilized in regular fashion with chlorhexidine. 1% of lidocaine was used as the skin anesthesia. A little roger was made on the skin and the thoracentesis needle was introduced under constant aspiration until there was a return of true pleural. The needle was subsequently removed and the catheter was advanced into the pleural space. The system was attached to the drainage system. An initial 30 mL of pleural fluid was obtained for analysis and studies. This was yellowish fluid. The drainage system drained a total of 1.3 L of pleural fluid which looked yellowish but very fluid and not thick. It was nonbloody and there was no obvious pus. Patient had a minimal cough almost at the end of the procedure. When there was no more return of fluid the catheter was retrieved. The area was covered with sterile gauze and a post procedure x-ray was ordered. It has not been done at the time of the dictation. Patient was hemodynamically stable during the entire course of the procedure and there was very minimal blood loss. We will review dated postop x-ray later. The patient tolerated the procedure very well. This entire procedure was done in the presence of her attending nurse for today, Ms. Mascorro and the daughter was also in the room holding the patient's hand at the time of the procedure. cc: Brayden Ruiz MD MTDD
[2016-10-24] MEDS: MILK OF MAGNESIA PO PRN (20:42)
[2016-10-25] MEDS: LEVAQUIN 750 MG in NS 150 ML IV SCH (05:15)
[2016-10-25] MEDS: LOVENOX SUBQ SCH (05:16)
[2016-10-25] MEDS ORDERED: VANCOMYCIN 1,300 MG in NS 250 ML IV SCH (06:00)
[2016-10-25] MEDS: MAXIPIME 1 GM/NS 1 GM/50 ML IVPB IV SCH ×2 (06:40→18:07)
[2016-10-25] MEDS: CRESTOR PO SCH (06:40)
[2016-10-25] MEDS: HUMALOG SUBQ SCH ×4 (06:41→20:59)
[2016-10-25 07:36] LABS: BASO% 0.2 % (0.0-0.8); EOS# 0.08 X1000 (0.0-0.7); EOS% 1.6 % (0.0-10.0); HEMATOCRIT 32.2 % (37.0-47.0); HEMOGLOBIN 10.6 g/dL (12.0-16.0); LYMPH# 0.81 X1000 (1.2-3.4); LYMPH% 16.2 % (20.5-51.1); MANUAL DIFF NEEDED? YES; MCH 24.1 PG (27-31); MCHC 32.9 g/dL (33-37); MCV 73.3 FL (81-99); MONO# 0.07 X1000 (0.11-0.59); MONO% 1.4 % (1.7-9.3); MPV 10.6 FL (7.4-10.4); NEUT% 80.6 % (42.2-75.2); PLT 432 X1000 (130-400); RBC 4.39 XMIL (4.2-5.4)
[2016-10-25 08:07] LABS: AGAP 12; BUN 14 mg/dL (8-22); CALCIUM 8.2 mg/dL (8.8-10.2); CHLORIDE 96 mmol/L (98-107); COSMO 270; POTASSIUM 4.1 mmol/L (3.5-5.1); SODIUM 135 mmol/L (136-145); TCO2 27 mmol/L (25-35)
[2016-10-25 08:35] LABS: BANDS 2 % (0-1); LYMPHS 22 % (21-51); MONO 4 % (1-9)
[2016-10-25] MEDS: THERA M PLUS PO SCH (10:11)
[2016-10-25] MEDS: NEURONTIN PO SCH ×2 (10:11→20:59)
[2016-10-25] MEDS: ASPIRIN EC PO SCH (10:11)
[2016-10-25] MEDS: CARDIZEM CD PO SCH (10:11)
[2016-10-25] MEDS: FOLIC ACID PO SCH (10:11)
[2016-10-25] MEDS: PEPCID PO SCH (10:11)
[2016-10-25] MEDS: PRINIVIL PO SCH (10:12)
[2016-10-25] MEDS ORDERED: MIRALAX PO ONE (13:33)
--- NOTE | 2016-10-25 15:33 | PROGRESS NOTE ---
DATE: 10/25/2016 SUBJECTIVE: Today Ms. Bolton referred to be doing a whole lot better. Breathing has significantly improved and she said she has slept a little better last night. OBJECTIVE: Vital signs: Blood pressure is 104/50, pulse of 101, respirations 16, temperature 98.8 degrees. General Exam: Ms. Bolton, 76-year-old female. She is in bed, not seemingly distressed. HEENT: Mucosa is anicteric. Acyanotic. Neck: Supple. Chest: Air entry is bilaterally reduced. There is now slightly more dullness to the right side than the left and there is bilateral posterior coarse crepitations. Cardiovascular: Mildly tachycardic. No murmurs, no rubs. No gallops. Abdomen: Soft, is distended. There is an old infraumbilical surgical scar. There is also an irregular mass in the right lower abdomen. 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 There is no focal neurological deficit. LABORATORY DATA: WBC is 4.99, hemoglobin is 10.6, platelet count of 432,000. Sodium is 135, potassium is 4.1, chloride 96, bicarb is 27. The pleural fluid shows WBC of 360 with monocytes of 96, polynuclear of 4, total protein is 5, LDH is 247. This is all consistent with an exudative fluid with lymphocytic predominant. ASSESSMENT: 1. Left lower lobe consolidation suspicious for pneumonia. Patient is currently on IV antibiotics. Seems to be doing a whole lot better. 2. Large left pleural effusion status post thoracentesis, 1.3 L was removed yesterday, subsequent chest x-ray shows remarkable improvement. The fluid analysis is consistent with an exudation with lymphocytic predominant which indeed in her case I think it is reasonable to assume that this is malignant. We would however will be waiting for the cytology on the fluid. 3. Metastatic ovarian cancer with malignant ascites. Patient is under Dr. Albert. 4. Hypertension stable. 5. Diabetes mellitus. Will continue current care. 6. Mild respiratory distress secondary to underlying pneumonia and pleural effusion. This is a whole lot better today. 7. Microcytic anemia due to chronic illness. 8. Constipation. We would give the patient MiraLAX for that. 9. Failure to thrive. I think this is due to the underlying malignancy. PLAN: So in general I think Ms. Bolton carries a very poor prognosis. However I think both she and the family are in some denial. Patient is actively getting therapy with Dr. Albert. We will therefore wait for her recommendations tomorrow to see what will be her care going forward. From medical standpoint I think will be able to switch the antibiotics to something oral and get her discharged hopefully tomorrow or the day after if it is okay with Hematology/Oncology. cc: Brayden Ruiz MD
[2016-10-25] MEDS: DUONEB (A & A) INH PRN (17:22)
[2016-10-25] MEDS ORDERED: NS 500 ML ONE (18:33)
[2016-10-25] MEDS: MEGACE LIQUID PO SCH (20:59)
[2016-10-25] MEDS: REMERON PO SCH (20:59)
[2016-10-26] MEDS: LEVAQUIN 750 MG in NS 150 ML IV SCH (05:23)
[2016-10-26] MEDS: LOVENOX SUBQ SCH (05:23)
[2016-10-26] MEDS: MAXIPIME 1 GM/NS 1 GM/50 ML IVPB IV SCH ×2 (05:23→17:11)
[2016-10-26] MEDS: HUMALOG SUBQ SCH ×4 (06:39→22:16)
[2016-10-26 07:13] LABS: EOS# 0.07 X1000 (0.0-0.7); EOS% 1.4 % (0.0-10.0); HEMATOCRIT 30.4 % (37.0-47.0); HEMOGLOBIN 9.8 g/dL (12.0-16.0); LYMPH# 0.78 X1000 (1.2-3.4); LYMPH% 15.2 % (20.5-51.1); MANUAL DIFF NEEDED? YES; MCH 23.6 PG (27-31); MCHC 32.2 g/dL (33-37); MCV 73.3 FL (81-99); MONO# 0.12 X1000 (0.11-0.59); MONO% 2.3 % (1.7-9.3); MPV 9.9 FL (7.4-10.4); NEUT% 81.1 % (42.2-75.2); PLT 411 X1000 (130-400); RBC 4.15 XMIL (4.2-5.4)
[2016-10-26 07:31] LABS: AGAP 9; BUN 10 mg/dL (8-22); CALCIUM 7.9 mg/dL (8.8-10.2); CHLORIDE 101 mmol/L (98-107); COSMO 267; SODIUM 133 mmol/L (136-145); TCO2 23 mmol/L (25-35)
[2016-10-26 08:15] LABS: LYMPHS 16 % (21-51)
[2016-10-26 08:16] LABS: HYPOCHROM 1+
--- NOTE | 2016-10-26 09:18 | Diag Imaging Result Document ---
PROCEDURE NAME: CHEST-PORTABLE - 10/26/2016 PORTABLE CHEST X-RAY, 10/26/2016: COMPARISON: 10/24/2016. FINDINGS: There is a new significant area of infiltrate and/or pleural effusion at the right lung base. There is worsening hazy infiltrate at the left lung base without significant effusion. Heart size remains top normal. IMPRESSION: Significant worsening in the aeration of the lung bases bilaterally.
[2016-10-26] MEDS: FOLIC ACID PO SCH (09:52)
[2016-10-26] MEDS: PEPCID PO SCH (09:52)
[2016-10-26] MEDS: MEGACE LIQUID PO SCH ×2 (09:52→22:16)
[2016-10-26] MEDS: NEURONTIN PO SCH ×2 (09:52→22:16)
[2016-10-26] MEDS: THERA M PLUS PO SCH (09:53)
[2016-10-26] MEDS: ASPIRIN EC PO SCH (09:53)
[2016-10-26] MEDS: CARDIZEM CD PO SCH (11:35)
[2016-10-26] MEDS: PRINIVIL PO SCH (11:35)
[2016-10-26] MEDS: VANCOMYCIN 1,300 MG in NS 250 ML IV SCH (17:57)
--- NOTE | 2016-10-26 21:36 | PROGRESS NOTE ---
DATE: 10/26/2016 HISTORY: Today Ms. Bolton refers to be doing a little better. She continues to have residual shortness of breath. OBJECTIVE: Vital signs: Blood pressure is 107/49, pulse of 106, respirations 19, temperature is 98.8 degrees. General: Ms. Bolton is a 76-year-old, female. She was in bed, mildly tachypneic. HEENT: Mucosa is pink and moist. She looks chronically sick. Cardiovascular: Regular rate and rhythm. No murmurs, no rubs, no gallops. Chest: Air entry is bilaterally reduced. There are diffuse bilateral crepitations. Cardiovascular: Regular rate and rhythm. Abdomen: Soft, distended. There is some old infraumbilical surgical scar. There is an irregular mass in the right lower abdomen. Central Nervous System: Patient is awake, alert. She has no focal neurological deficit. LABORATORY DATA: WBC is 5.14, hemoglobin is 9.8, platelet count is 411,000. Chemistry: Sodium is 133, potassium 4.4, chloride 101, bicarbonate 23. Chest x-ray this morning shows significant worsening of aeration of the lung bases bilaterally. There is a significant area of infiltrate and pleural effusion at the right lung base. There is worsening hazy infiltrates in the left base without significant effusion. ASSESSMENT: 1. Acute respiratory distress secondary to suspected pneumonia. Patient is currently on IV antibiotics. This morning the chest x-ray seemed slightly worse. We will follow up tomorrow with another one. 2. Large left pleural effusion status post thoracentesis, 1.3 L was removed. 3. Metastatic ovarian cancer with malignant ascites and peritoneal carcinomatosis. 4. Hypertension. 5. Diabetes mellitus. 6. Microcytic anemia due to chronic disease. 7. Constipation improved. 8. Failure to thrive. 9. Poor prognosis. PLAN: Ms. Bolton is chronically ill with ascites which is malignant due to ovarian cancer. We had bilateral pleural effusion, the left was more so we tapped it. It shows predominantly a lymphocytic predominant fluid which I think is also malignant. She looks cachectic. I think putting everything together, her prognosis is dismal. I did mention this to the family. We had over an hour conversation this morning with the daughter, who is from [place], about the dismal prognosis that her matter carries. They are, however, hopeful that the mother will improve somehow with chemotherapy. We will defer any further recommendations to the Hematology/Oncology team that is assisting us with Ms. Bolton's care. I think from an objective analysis Ms. Bolton will qualify for hospice, however, we will wait for Hem/Onc to evaluate the patient today and make some recommendations. Until then patient will continue with the current antibiotics for the presumed pneumonia. If the respiratory status does not improve, we might have to rescan her to see if anything has changed. cc: Brayden Ruiz MD
[2016-10-26] MEDS: REMERON PO SCH (22:16)
[2016-10-27] MEDS: MAXIPIME 1 GM/NS 1 GM/50 ML IVPB IV SCH ×2 (06:01→18:08)
[2016-10-27] MEDS: LEVAQUIN 750 MG in NS 150 ML IV SCH (06:01)
[2016-10-27] MEDS: LOVENOX SUBQ SCH (06:01)
[2016-10-27] MEDS: CRESTOR PO SCH (06:01)
[2016-10-27 06:32] LABS: BASO% 0.2 % (0.0-0.8); EOS# 0.08 X1000 (0.0-0.7); EOS% 1.5 % (0.0-10.0); HEMATOCRIT 31.4 % (37.0-47.0); HEMOGLOBIN 10.3 g/dL (12.0-16.0); IMM GRAN# 0.02 X1000 (0.0-0.04); IMM GRAN% 0.4 % (0.0-0.5); LYMPH# 1.05 X1000 (1.2-3.4); LYMPH% 19.1 % (20.5-51.1); MANUAL DIFF NEEDED? NO; MCH 23.8 PG (27-31); MCHC 32.8 g/dL (33-37); MCV 72.7 FL (81-99); MONO# 0.21 X1000 (0.11-0.59); MONO% 3.8 % (1.7-9.3); PLT 451 X1000 (130-400); RBC 4.32 XMIL (4.2-5.4)
[2016-10-27] MEDS: HUMALOG SUBQ SCH ×3 (06:33→18:15)
[2016-10-27 06:45] LABS: AGAP 12; ALBUMIN 2.7 g/dL (3.5-5.0); ALKALINE PHOSPHATASE 55 U/L (32-104); BUN 9 mg/dL (8-22); CALCIUM 8.7 mg/dL (8.8-10.2); CHLORIDE 99 mmol/L (98-107); COSMO 267; GOT 40 U/L (10-30); GPT 33 U/L (10-36); MAGNESIUM 2.1 mg/dL (1.5-2.7); SODIUM 134 mmol/L (136-145); TCO2 23 mmol/L (25-35); TOTAL BILIRUBIN 0.35 mg/dL (0.20-1.00); TOTAL PROTEIN 6.6 g/dL (6.3-8.3)
--- NOTE | 2016-10-27 07:30 | Diag Imaging Result Document ---
PROCEDURE NAME: CHEST-PORTABLE - 10/27/2016 SINGLE FRONTAL RADIOGRAPH OF THE CHEST: COMPARISON: 10/26/2016. FINDINGS: There are bilateral pleural effusions with adjacent atelectasis and/or infiltrate. There may have been some improvement at the right lung base. No new consolidations are identified. Cardiac silhouette is stable. IMPRESSION: Bibasilar effusions with adjacent atelectasis and/or infiltrate with mild improvement on the right. However, this may be due to differences in positioning.
[2016-10-27] MEDS: MEGACE LIQUID PO SCH ×2 (09:03→21:06)
[2016-10-27] MEDS: PEPCID PO SCH (09:03)
[2016-10-27] MEDS: ASPIRIN EC PO SCH (09:03)
[2016-10-27] MEDS: THERA M PLUS PO SCH (09:03)
[2016-10-27] MEDS: FOLIC ACID PO SCH (09:03)
[2016-10-27] MEDS: PRINIVIL PO SCH (09:03)
[2016-10-27] MEDS: CARDIZEM CD PO SCH (09:03)
[2016-10-27] MEDS: NEURONTIN PO SCH ×2 (09:03→21:06)
--- NOTE | 2016-10-27 16:36 | PROGRESS NOTE ---
DATE: 10/27/2016 Presented with shortness of breath. Patient of Dr. Katherin Holly and followed by Dr. Albert. 76- year-old black female with past medical history most notable for diabetes mellitus type 2, hypertension, hyperlipidemia, recently diagnosed with ovarian cancer with metastasis intraperitoneally. She did receive her 1st chemo treatment on Wednesday 2 days before admission. The patient reports that since October she has had issues with shortness of breath. It became increasingly worse. Also the over the past 2 days she has had a productive cough with thick white sputum, fever, decreased appetite as well as nausea. Did report she had 1 episode of vomiting the day before admission. Reported some increased weakness and fatigue. The patient is not normally on oxygen therapy at home. Upon arrival, she was slightly hypoxic room air. She was 89% saturations. Since being placed on nasal cannula it has improved. PAST MEDICAL HISTORY: 1. Diabetes mellitus type 2. 2. Hypertension. 3. Hyperlipidemia. 4. Recently diagnosed with a ovarian cancer with metastasis intraperitoneally. Currently being followed by Dr. Albert. PAST SURGICAL HISTORY: Tubal ligation. Cholecystectomy. Umbilical hernia repair. Hysterectomy. Appendectomy. She was admitted for bilateral lower lobe pneumonia. Moderate to large left pleural effusion and placed on Levaquin 750 mg a day. A sputum culture was obtained. 1. She had leukocytosis. 2. Ovarian cancer intraperitoneally. 3. Diabetes mellitus type 2. Follow blood sugars. Put on sliding scale. 4. History of tachycardia. 5. Previous history of atrial fib and flutter. 6. She takes Cardizem for elevated heart rate and we have continued this. 7. Hypertension. 8. Hyperlipidemia. She is showing improvement. She feels better. EXAM: Today afebrile. Temp 98.6 degrees, pulse 112, respirations 18, blood pressure 110/42.Lungs: Clear in all lung moreno. Cardiovascular: Regular rhythm and rate without murmur or S3. Abdomen: Soft. Skin: Warm and dry. Good urine output. LAB REVIEW: From today, white count 5500, hematocrit 31, platelet count 451,000. Sodium 134, potassium 4.0, chloride 99, bicarb 23, BUN 9, creatinine 0.7. Blood sugars 128, 110, 100, 101. She had a mild elevation of AST at 40. ALT was 33. Alkaline phos 55. Chest x-ray from today bibasilar effusion with adjacent atelectasis and infiltrate with mild improvement in the right which could be due to difference in posturing. ASSESSMENT AND PLAN: 1. Acute respiratory distress secondary to suspected pneumonia. Patient currently on IV antibiotics. Chest x-ray showed slight radiographic improvement. Clinically she feels better. Continue present treatment. 2. Large left pleural effusion status post thoracentesis. 1.3 L was removed. 3. Metastatic ovarian cancer with malignant ascites and peritoneal carcinomatosis. 4. Hypertension. 5. Diabetes mellitus type 2. 6. Microcytic anemia due to chronic disease. 7. Constipation improved. 8. Failure to thrive. Of note, poor prognosis. The fluid from the pleurocentesis showed lymphocytic predominant fluid which I think is probably malignant. Encourage p.o. intake. Encouraged nutrition. We looked at review of orders. I do not see any change. She is on vancomycin for 1300 mg IV q.24 hours. Crestor 10 mg q.2 days. Compazine 10 mg p.o. t.i.d. p.r.n. nausea. Multivitamin. Remeron 15 mg at bedtime. Megestrol acetate 400 mg b.i.d. Cefepime 1 g q.12h. Magnesium, hydrochlorothiazide 30 mg. Milk of magnesia 30 mL p.r.n. Prinivil 2.5 mg daily. Levaquin 750 mg IV every 24 hours. Neurontin 100 mg b.i.d., folic acid 0.4 mg daily, Pepcid 20 mg a day. Lovenox 40 mg subcutaneously q.24 hours, Cardizem CD 120 mg a day. Aspirin 81 mg a day and her breathing treatments. cc: Pelon Gipson MD
[2016-10-27] MEDS: VANCOMYCIN 1,300 MG in NS 250 ML IV SCH (19:09)
[2016-10-27] MEDS: REMERON PO SCH (21:06)
[2016-10-28] MEDS: HUMALOG SUBQ SCH ×5 (00:40→21:08)
[2016-10-28] MEDS: MAXIPIME 1 GM/NS 1 GM/50 ML IVPB IV SCH ×2 (05:45→17:29)
[2016-10-28] MEDS: LEVAQUIN 750 MG in NS 150 ML IV SCH (06:34)
[2016-10-28] MEDS: LOVENOX SUBQ SCH (06:34)
[2016-10-28] MEDS: FOLIC ACID PO SCH (09:43)
[2016-10-28] MEDS: MEGACE LIQUID PO SCH ×2 (09:44→21:07)
[2016-10-28] MEDS: THERA M PLUS PO SCH (09:44)
[2016-10-28] MEDS: ASPIRIN EC PO SCH (09:44)
[2016-10-28] MEDS: NEURONTIN PO SCH ×2 (09:44→21:07)
[2016-10-28] MEDS: PEPCID PO SCH (09:44)
[2016-10-28] MEDS: PRINIVIL PO SCH (09:45)
--- NOTE | 2016-10-28 14:08 | PALLIATIVE CARE CONSULTATION ---
DATE: 10/28/2016 REQUESTING PHYSICIAN: Dr. Brayden Ruiz. REASON FOR CONSULTATION: Goals of care. HISTORY OF PRESENT ILLNESS: This is a 76-year-old -Prydeinig female with a past medical history of ovarian carcinoma, diabetes mellitus type 2, hypertension, and hyperlipidemia. She is followed by Dr. Albert for the treatment of her ovarian carcinoma and actually received her first treatment on 10/21/2016. She was admitted on 10/23/2016 after presenting to the ER with complaints of shortness of breath, weakness, decreased appetite, productive cough, fever, and nausea. Diagnostics in the ER were consistent with bilateral lower lobe pneumonia, as well as a [id number] left pleural effusion. Currently, Ms. Bolton is sitting on the bedside. She appears weak but does not have any acute complaints. Her son and daughter are also present for the consultation. The patient explains that over the last several months she has had a progressive weakness and shortness of breath. She explains that she is still able to perform all of her activities of daily living but it does take her some time to complete those tasks due to her fatigue and shortness of breath. As mentioned, she does not have any complaints of pain, shortness of breath, nausea, anxiety or depression. However, she does state that her appetite remains poor. The Palliative Care Team has been consulted to assist with goals of care. REVIEW OF SYSTEMS: Twelve-point review of system has been conducted but, otherwise, negative except those mentioned in the HPI. PAST MEDICAL HISTORY: 1. Ovarian carcinoma. 2. Diabetes mellitus, type 2. 3. Hypertension. 4. Hyperlipidemia. PAST SURGICAL HISTORY: 1. Tubal ligation. 2. Cholecystectomy. 3. Umbilical hernia repair. 4. Hysterectomy. 5. Appendectomy. SOCIAL HISTORY: Prior to this admission, she lived local with her . She has a very supportive family. Alcohol, tobacco and drug use have been denied. FAMILY HISTORY: Positive for diabetes mellitus, hypertension, and CVA. PHYSICAL EXAMINATION: General: This is a 76-year-old chronically ill-appearing, -Prydeinig female, who appears fatigued but not in any acute distress. HEENT: Atraumatic, normocephalic. Neck: Trachea is midline. Cardiovascular: Increased rate. Regular rhythm. Pulmonary: Lung sounds are diminished. Respirations are nonlabored. Abdomen: Soft. Bowel sounds are active. Extremities: Pulses are palpable. Neurologic: Awake, alert, oriented to person, place and time. IMPRESSION: This is a 76-year-old -Prydeinig female with a past medical history as listed above. Ms. Bolton is followed by Dr. Dahlia Albert for the treatment of her ovarian carcinoma. She received her first chemo treatment on in 10/21/2016. She states that since that treatment she has become very weak and with a poor appetite; however, her and her children's goal is for her to continue treatment. We discussed all discharge options of home health, outpatient palliative care, and hospice services. The daughter stated that they are not ready for hospice services at this time. We discussed Ms. Bolton's overall state of health. The family feels that she would be better suited for palliative care if she continues treatment. She is most certainly appropriate for outpatient palliative care services. Those services have been explained. We also discussed Advanced Directive and power of deputy attorney general. She does not have either document. She wishes to be a FULL CODE but does request further information regarding those documents. It appears at this time, Ms. Bolton's palliative performance scale is 50%. She does not have any acute complaints. The Palliative Care Team will continue to follow. Thank you for this consultation. Dictated by KEYSHA Faith for Solo Perkins MD cc: KEYSHA Faith MD
[2016-10-28] MEDS: CARDIZEM CD PO SCH (14:28)
[2016-10-28] MEDS: DUONEB (A & A) INH PRN (15:30)
[2016-10-28] MEDS: VANCOMYCIN 1,300 MG in NS 250 ML IV SCH (19:05)
[2016-10-28] MEDS: REMERON PO SCH (21:07)
[2016-10-28] MEDS: ZOFRAN IV PRN (22:34)
--- NOTE | 2016-10-28 23:13 | PROGRESS NOTE ---
DATE: 10/28/2016 SUBJECTIVE: Ms Bolton states she is feeling a little better, may feel a little bit stronger still limited, very fatigued, and can't walk very far without shortness of breath. Blood sugar is 106, 113, 120. OBJECTIVE: HEENT: Pupils are equal and round. CVP less than 6 cm. Lungs: Clear in all lung moreno. Cardiovascular: Regular rhythm and rate without murmur or S3. vital signs: Blood pressure 121/54, pulse 85, respirations 20, urine output was about 2.5 L. ASSESSMENT AND PLAN: 1. Radiographically and clinically appears to be doing better. Leukocytosis improved. She has ovarian cancer, intraperitoneally. Continue present antibiotics. Continue present treatment. 2. Ovarian cancer, intraperitoneally. 3. Diabetes mellitus type 2. Sugars under good control. 4. History of bradycardia. 5. History of atrial flutter. 6. History of hypertension. Review her present orders will continue, no change. cc: Pelon Gipson MD
[2016-10-29] MEDS: ZOFRAN IV PRN ×4 (05:07→21:55)
[2016-10-29] MEDS: MAXIPIME 1 GM/NS 1 GM/50 ML IVPB IV SCH ×2 (05:07→17:29)
[2016-10-29] MEDS: CRESTOR PO SCH (05:48)
[2016-10-29] MEDS: LOVENOX SUBQ SCH (05:48)
[2016-10-29] MEDS: LEVAQUIN 750 MG in NS 150 ML IV SCH (05:48)
[2016-10-29] MEDS: HUMALOG SUBQ SCH ×3 (06:17→16:20)
[2016-10-29] MEDS: DUONEB (A & A) INH PRN (07:26)
[2016-10-29] MEDS: PRINIVIL PO SCH (08:56)
[2016-10-29] MEDS: MEGACE LIQUID PO SCH (08:56)
[2016-10-29] MEDS: CARDIZEM CD PO SCH (08:56)
[2016-10-29] MEDS: ASPIRIN EC PO SCH (08:57)
[2016-10-29] MEDS: NEURONTIN PO SCH ×2 (08:57→21:58)
[2016-10-29] MEDS: FOLIC ACID PO SCH (08:57)
[2016-10-29] MEDS: THERA M PLUS PO SCH (08:57)
[2016-10-29] MEDS: PEPCID PO SCH (08:57)
[2016-10-29] MEDS ORDERED: LASIX IV ONE (09:00)
--- NOTE | 2016-10-29 17:39 | PROGRESS NOTE ---
DATE: 10/29/2016 SUBJECTIVE: She does not feel as good today as she did yesterday. Breathing is about the same. Pretty weak but she does feel extremely limited, short of breath with just a couple of steps. She did have some nausea. OBJECTIVE: Vital signs: Temp 98.4 degrees, pulse 118, respirations 18, blood pressure 118/50. Neck: CVP less than 6 cm. Lungs: Clear anterolateral. Decreased breath sounds both bases. Cardiovascular: Regular rhythm and rate without murmur or S3. Abdomen: Soft. LABORATORY: Blood sugar 122, 113, 154. Lab reviewed from the . Hematocrit 31. Chemistries unremarkable. ASSESSMENT AND PLAN: 1. Radiographically and clinically appears to be doing a little better. Today does not feel as good. Leukocytosis I believe is improved. I am going to check some more lab work in the morning, CBC and Chem 22. I also think we could check her T4 and TSH and B12 and folate; I do not know if that has been done. 2. Ovarian cancer. She has intraperitoneal and recent pleural effusion well. Chest x-ray on 10/27, bibasilar effusions, adjacent atelectasis and/or infiltrate. There is mild improvement on the right. We are going to continue the antibiotics. 3. Hypertension. 4. History of hyperlipidemia. 5. Diabetes mellitus type 2. Sugar is under good control. 6. Macrocytic anemia due to chronic disease. 7. Constipation which has improved. 8. In summary, appears to have metastatic ovarian cancer. I am not sure how much better we are going to improve. We will check another chest x-ray tomorrow. We will check a CBC and Chem 22. I may ask pulmonary to assist to see if there are any other ideas. Of note, she is followed by Dr. Albert. Discuss whether pulmonary needs to get involve or not. She wishes to be a full code. cc: Pelon Gipson MD
[2016-10-29] MEDS: VANCOMYCIN 1,500 MG in NS 250 ML IV SCH (18:44)
[2016-10-29] MEDS: REMERON PO SCH (21:58)
[2016-10-30] MEDS: HUMALOG SUBQ SCH ×5 (05:01→21:37)
[2016-10-30] MEDS: MAXIPIME 1 GM/NS 1 GM/50 ML IVPB IV SCH ×2 (05:48→18:17)
[2016-10-30] MEDS: MILK OF MAGNESIA PO PRN (05:48)
[2016-10-30] MEDS: LOVENOX SUBQ SCH (05:48)
[2016-10-30] MEDS: ZOFRAN IV PRN ×2 (05:48→18:29)
[2016-10-30] MEDS: LEVAQUIN 750 MG in NS 150 ML IV SCH (06:40)
[2016-10-30 07:40] LABS: HEMATOCRIT 30.6 % (37.0-47.0); MCH 23.9 PG (27-31); MCHC 32.7 g/dL (33-37); MPV 9.6 FL (7.4-10.4); RBC 4.19 XMIL (4.2-5.4)
[2016-10-30 07:43] LABS: AGAP 14; ALBUMIN 2.8 g/dL (3.5-5.0); BUN 15 mg/dL (8-22); CALCIUM 9.2 mg/dL (8.8-10.2); CHLORIDE 101 mmol/L (98-107); COSMO 274; POTASSIUM 4.2 mmol/L (3.5-5.1); SODIUM 136 mmol/L (136-145); TCO2 21 mmol/L (25-35)
[2016-10-30] MEDS: PRINIVIL PO SCH (09:20)
[2016-10-30] MEDS: FOLIC ACID PO SCH (09:21)
[2016-10-30] MEDS: THERA M PLUS PO SCH (09:21)
[2016-10-30] MEDS: ASPIRIN EC PO SCH (09:22)
[2016-10-30] MEDS: PEPCID PO SCH (09:22)
[2016-10-30] MEDS: CARDIZEM CD PO SCH (09:22)
[2016-10-30] MEDS: NEURONTIN PO SCH ×2 (09:22→21:37)
[2016-10-30] MEDS: VANCOMYCIN 1,500 MG in NS 250 ML IV SCH (14:35)
--- NOTE | 2016-10-30 14:52 | Diag Imaging Result Document ---
PROCEDURE NAME: ABDOMEN FLAT/UPRIGHT - 10/30/2016 PORTABLE SUPINE AND UPRIGHT ABDOMEN: There is some limitation of detail associated with the portable technique. FINDINGS: The abdomen is hazy which likely relates to the omental caking which was seen on the 09/25/2016 CT abdomen and pelvis plus or minus ascites. There is apparent mild gaseous distention of the stomach. The bowel gas pattern, otherwise, appears nonspecific. There are apparent bilateral pleural effusions noted. IMPRESSION: Mild gaseous distention of stomach. Nonspecific bowel gas pattern otherwise. Apparent bilateral pleural effusions.
--- NOTE | 2016-10-30 15:53 | PROGRESS NOTE ---
DATE: 10/30/2016 SUBJECTIVE: The patient states that she had several bouts of nausea and vomiting overnight. This morning she states that nausea and vomiting are better. She also states that she does not have an appetite and has not been eating very much. OBJECTIVE: Vital Signs: Temperature 98 degrees, blood pressure 115/61, heart rate 101, respirations 20, O2 saturations 97% on 2 L nasal cannula. General: This is a chronically ill- appearing elderly female sitting in a chair in no acute distress. Head: Normocephalic, atraumatic. Heart: S1, S2. Normal. Regular rate and rhythm. Tachycardic. Lungs: Equal air entry bilaterally. No crackles, no rales. Abdomen: Positive bowel sounds. Soft, nontender. Extremities: No edema. No cyanosis. No calf tenderness. Neurologic: The patient is alert and oriented x3. LABS: White blood cell count 5.7, hemoglobin 10, hematocrit 30, platelets 489, 000. Sodium 136, potassium 4.2, chloride 101, CO2 21, BUN 15, creatinine 0.6, glucose 117. ASSESSMENT AND PLAN: 1. Ovarian carcinoma with omental caking. The patient is currently status post 1 cycle of chemotherapy which she received on 10/21/2016. Further management as per the oncologist. 2. Nausea with vomiting. The patient has not had a bowel movement in several days. We will check an abdominal x-ray and consult GI. Will also start the patient on scheduled laxatives. 3. Pneumonia. Slowly improving. Continue on IV antibiotic therapy. 4. Anemia of chronic disease. The patient's hemoglobin and hematocrit are stable. 5. Severe protein calorie malnutrition. Will add Megace to stimulate the patient's appetite. The dietitian is following. 6. Hypertension. Controlled. 7. Deep vein thrombosis prophylaxis. Continue on Lovenox. 8. Continue with physical therapy. cc: Danni Liang MD [facility]
--- NOTE | 2016-10-30 17:00 | Diag Imaging Result Document ---
PROCEDURE NAME: THORAX/ABDOMEN/PELVIS W/O CONT - 10/30/2016 CT THORAX, ABDOMEN, AND PELVIS WITHOUT CONTRAST: No contrast administered per request of the referring provider. A dose-reduction protocol was used. COMPARISON: Compared with the CT abdomen and pelvis of 09/25/2016. There is no comparison CT thorax available. FINDINGS: There are moderate bilateral pleural effusions. There is associated compressive atelectasis at the bilateral lower lobes. There is no pneumothorax. There is a borderline pretracheal mediastinal lymph node. There is extensive omental thickening similar to the previous exam. There is a small amount of ascites similar to the previous exam. There is no abscess identified. There is no free air. There has been development of substantial distention of the stomach with fluid and some air. There has been development of distention of multiple small bowel loops, primarily with fluid. These findings may relate to distal small bowel obstruction or to functional obstruction associated with peritoneal carcinomatosis. There are no acute changes identified in the liver, spleen, adrenal glands, pancreas, or kidneys. There is no hydronephrosis. The gallbladder is surgically absent. There are lumbar spine degenerative changes noted. IMPRESSION: 1. Moderate bilateral pleural effusions. Associated compressive atelectasis, primarily at the bilateral lower lobes. Borderline pretracheal mediastinal lymph node. 2. Extensive omental caking similar to the previous exam and suspicious for metastatic disease. Small amount of ascites similar to the previous exam. 3. Development of distended stomach and dilated small bowel, primarily with fluid. This may relate to distal small bowel obstruction or to functional small bowel obstruction associated with peritoneal carcinomatosis. [facility]
[2016-10-30] MEDS ORDERED: LASIX IV ONE (17:44)
--- NOTE | 2016-10-30 18:38 | CONSULTATION ---
DATE OF CONSULTATION: 10/30/2016 REFERRING PHYSICIAN: Danni Liang M.D. PRIMARY ONCOLOGIST: Dr. Dahlia Albert M.D. INDICATION FOR CONSULTATION: Refractory nausea with vomiting. HISTORY OF PRESENT ILLNESS: The patient is a very pleasant 76-year-old female who was recently found to have ovarian cancer. She recently underwent chemotherapy on 10/21/2016. She was then admitted on 10/23/2016 with shortness of breath. Throughout the hospital course, she has had refractory nausea with vomiting. CT scan obtained today is remarkable for bilateral pleural effusions, atelectasis, omental caking, and metastatic disease. She also has developed a distended stomach and proximal small bowel that contains fluid. This most likely represents distal small bowel obstruction versus a functional small bowel obstructions associated with peritoneal carcinomatosis. Overnight, the patient has had persistent nausea with vomiting. We are asked to participate in her care. REVIEW OF SYSTEMS: Remarkable for nausea, vomiting and epigastric fullness. PAST MEDICAL HISTORY: 1. Diabetes 2. 2. Hypertension. 3. Hyperlipidemia. 4. Ovarian cancer with peritoneal carcinomatosis. PAST SURGICAL HISTORY: 1. Tubal ligation. 2. Cholecystectomy. 3. Hiatal hernia repair. 4. Hysterectomy. 5. Appendectomy. FAMILY HISTORY: Positive for diabetes and hypertension as well as heart disease. 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 SOCIAL HISTORY: Negative for alcohol, tobacco or recreational drug use. MEDICATION ALLERGIES: 1. Erythromycin. 2. Doxycycline. 3. Hydrocodone. HOME MEDICATIONS: 1. Aspirin. 2. Caltrate D plus. 3. Os-Wyatt. 4. Cardizem. 5. Pepcid. 6. Folic acid. 7. Lasix. 8. Gabapentin. 9. Glimepiride. 10. Codeine/guaifenesin cough suppression elixir. 11. Lisinopril. 12. Multivitamin. 13. Fish oil. 14. Zofran. 15. Compazine. 16. Crestor. 17. Vitamin E. PHYSICAL EXAM: General: She is in no acute distress. Vital signs: Her blood pressure is 115/61, pulse of 120, respirations 26-28, temperature is 98.7 degrees. HEENT: Remarkable in that she is wearing a nasal cannula. Her conjunctivae are anicteric. Her sclerae are normal. Her oropharyngeal mucosa membrane is dry. Cardiovascular: She has a resting tachycardia but no murmurs, gallops, or rubs. Her heart rhythm is regular with no evidence of ectopy. Pulmonary: Lungs are clear to auscultation anteriorly. There are decreased breath sounds bilaterally in the lower lobes. Abdominal Exam: Reveals normoactive bowel sounds. The abdomen is soft, slightly distended with a doughy consistency consistent with peritoneal carcinomatosis. Extremities: Bilaterally are negative for cyanosis, clubbing, or edema. Neurologic: She is alert and oriented x3 with appropriate mood, affect, and memory. OBJECTIVE DATA: Reveals a hemoglobin of 10.0 with hematocrit of 30.6 and white count of 5.71. She has an MCV of 73.0 with an MCH of 23.9. She has 489,000 platelets. Sodium is 136, potassium 4.2, chloride 101, CO2 21, BUN 15, creatinine 0.8 with a glucose of 117. Calcium is 9.2, phosphorus 3.6, albumin 2.8. IMPRESSION: 1. Nausea with vomiting. 2. Probable small bowel obstruction with gastric distention. 3. Ovarian cancer. 4. Peritoneal carcinomatosis. 5. Anemia. RECOMMENDATION: 1. The patient most likely has a functional bowel obstruction secondary to peritoneal carcinomatosis. I recommend placing a nasogastric tube for decompression in light of her vomiting. 2. I would begin Protonix 40 mg IV q.12 hours for maximal acid suppression. 3. I will discuss with Dr. Dahlia Albert, her primary oncologist, the pros and cons of placing a decompressive feeding tube. In that case, she would require home TPN. 4. I would monitor her hemoglobin and hematocrit and transfuse as indicated. 5. She will need adequate protein intake as she has serum chemistry evidence of protein calorie malnutrition. 6. Additional recommendations to follow based on her clinical course. cc: MD WILFRIDO Enriquez
[2016-10-30] MEDS: DILAUDID IV PRN (18:56)
[2016-10-30] MEDS: SODIUM CHLORIDE 0.9% INJ SCH (18:56)
[2016-10-30] MEDS: PROTONIX IV SCH (18:56)
--- NOTE | 2016-10-30 18:58 | Diag Imaging Result Document ---
PROCEDURE NAME: CHEST/ABD TUBE PLACEMENT - 10/30/2016 PORTABLE CHEST, ABDOMEN: FINDINGS: Compared to a portable chest performed earlier. Interval placement of a nasogastric tube. This overlies the esophagus and stomach. No change in the bilateral pleural effusions and basilar atelectasis. IMPRESSION: Nasogastric tube enters the stomach.
[2016-10-30] MEDS: DULCOLAX PR SCH (21:37)
[2016-10-30] MEDS: REMERON PO SCH (21:37)
[2016-10-31] MEDS: DILAUDID IV PRN ×2 (01:36→20:27)
[2016-10-31] MEDS ORDERED: CHLORASEPTIC SPRAY MT PRN (03:22)
[2016-10-31] MEDS: DUONEB (A & A) INH PRN ×2 (08:32→16:03)
[2016-10-31 08:40] LABS: ALBUMIN 2.9 g/dL (3.5-5.0); CALCIUM 9.2 mg/dL (8.8-10.2); POTASSIUM 4.3 mmol/L (3.5-5.1); TOTAL BILIRUBIN 0.38 mg/dL (0.20-1.00); TOTAL PROTEIN 7.3 g/dL (6.3-8.3)
[2016-10-31 09:14] LABS: BASO% 0.2 % (0.0-0.8); EOS# 0.03 X1000 (0.0-0.7); EOS% 0.5 % (0.0-10.0); HEMATOCRIT 31.6 % (37.0-47.0); HEMOGLOBIN 10.3 g/dL (12.0-16.0); LYMPH# 1.27 X1000 (1.2-3.4); LYMPH% 22.2 % (20.5-51.1); MANUAL DIFF NEEDED? YES; MCH 23.8 PG (27-31); MCHC 32.6 g/dL (33-37); MCV 73.1 FL (81-99); MONO# 1.06 X1000 (0.11-0.59); MONO% 18.6 % (1.7-9.3); MPV 9.9 FL (7.4-10.4); NEUT% 58.5 % (42.2-75.2); PLT 523 X1000 (130-400); RBC 4.32 XMIL (4.2-5.4)
[2016-10-31] MEDS: VANCOMYCIN 1,500 MG in NS 250 ML IV SCH (09:30)
[2016-10-31 10:36] LABS: BANDS 2 % (0-1); EOS 2 % (1-10); LYMPHS 22 % (21-51); MONO 14 % (1-9)
[2016-10-31 10:37] LABS: HYPOCHROM 2+
[2016-10-31] MEDS: HUMALOG SUBQ SCH ×3 (11:17→16:54)
--- NOTE | 2016-10-31 13:53 | Diag Imaging Result Document ---
PROCEDURE NAME: ABDOMEN FLAT/UPRIGHT - 10/31/2016 PORTABLE UPRIGHT AND SUPINE ABDOMEN, 2 VIEWS: COMPARISON: Compared to 10/30/2016. FINDINGS: Nasogastric tube overlies the stomach. There are basilar infiltrates or atelectasis in addition to pleural effusions. The bowel loops are not overly distended although there is very little air within the bowel loops. No organomegaly. The gallbladder has been removed. IMPRESSION: No definite constipation. .
[2016-10-31] MEDS: MAXIPIME 1 GM/NS 1 GM/50 ML IVPB IV SCH ×2 (14:24→19:18)
[2016-10-31] MEDS: ASPIRIN EC PO SCH (14:25)
[2016-10-31] MEDS: LOVENOX SUBQ SCH (14:25)
[2016-10-31] MEDS: LEVAQUIN 750 MG in NS 150 ML IV SCH (14:25)
[2016-10-31] MEDS: PROTONIX IV SCH ×2 (14:25→19:44)
[2016-10-31] MEDS: CRESTOR PO SCH (14:25)
[2016-10-31] MEDS: THERA M PLUS PO SCH (14:26)
[2016-10-31] MEDS: NEURONTIN PO SCH ×2 (14:26→20:19)
[2016-10-31] MEDS: MIRALAX PO SCH (14:26)
[2016-10-31] MEDS: PRINIVIL PO SCH (14:26)
[2016-10-31] MEDS: MARINOL PO SCH (14:26)
[2016-10-31] MEDS: CARDIZEM CD PO SCH (14:27)
[2016-10-31] MEDS: FOLIC ACID PO SCH (14:27)
[2016-10-31] MEDS: CLINIMIX E 4.25%-5% SOLUTION 1,000 ML IV SCH (15:51)
--- NOTE | 2016-10-31 16:24 | PROGRESS NOTE ---
DATE: 10/31/2016 SUBJECTIVE: Patient has a little bit of output into her NG, into the canister after the NG was placed yesterday. She denies having any abdominal pain, nausea or vomiting. She states that her throat is sore from the NG tube. OBJECTIVE: Vital Signs: Temperature 97 degrees, blood pressure 158/87, heart rate 76, respirations 20, O2 saturations 94% on 2 L nasal cannula. General: This is an elderly female, lying in bed, in no acute distress. Head: Normocephalic, atraumatic. Heart: S1, S2. Normal. Tachycardic. Lungs: Clear to auscultation bilaterally. Diminished breath sounds at the bases. Abdomen: Positive bowel sounds. Soft. Distended. Nontender. Extremities: No edema. No cyanosis. No calf tenderness. Neurologic: The patient is alert and oriented x3. LABORATORY STUDIES: White blood cell count 5.7, hemoglobin 10, hematocrit 31, platelets 523,000. Sodium 138, potassium 4.3, chloride 101, CO2 23, BUN 20, creatinine 1.1, glucose 89, albumin 2.9. ASSESSMENT AND PLAN: 1. Metastatic ovarian carcinoma with severe omental caking. Management as per Dr. Albert. 2. Bilateral malignant pleural effusions. Aware. The patient does not appear to have any difficulty breathing at this time. 3. Possible small bowel obstruction. Continue with NG tube decompression. Gastroenterology is following. 4. Severe protein calorie malnutrition. The patient is n.p.o. at this time. She will likely require a TPN or enteral feeding. Will await the recommendations from the oncologist and infant caregiver. 5. Deep vein thrombosis prophylaxis. Continue on Lovenox. cc: Danni Liang MD
[2016-10-31] MEDS: SODIUM CHLORIDE 0.9% INJ SCH (19:44)
[2016-10-31] MEDS: REMERON PO SCH (20:19)
[2016-10-31] MEDS: DULCOLAX PR SCH (20:26)
--- NOTE | 2016-10-31 21:36 | PROGRESS NOTE ---
DATE: 10/31/2016 SUBJECTIVE: The patient was noted to have significant abdominal distention on CT scan from 10/30/2016. She continued to have nausea and vomiting through the night. A nasogastric tube was placed for decompression. She reports that she feels significantly better today. Her CT scan revealed significant gastric distention with encasement of the and small bowel due to her metastatic disease. The patient states that she feels much better today after placement of the nasogastric tube for decompression. She reports that she has had a return of her appetite and complains of being hungry. Her family reports that this is the 1st time in weeks that she has complained of being hungry. She denies nausea with vomiting, abdominal pain but states that her throat is sore from the NG tube. She reports that her abdomen is less distended and she actually feels slightly better other than the sore throat. EXAM: Her blood pressure is 158/87, pulse 76, respiration 20, temperature of 97.7 degrees. Her abdomen reveals normoactive bowel sounds. The abdomen is soft, nontender and nondistended. OBJECTIVE DATA: Reveals a hemoglobin of 10.3 with hematocrit of 31.6 and a white count of 5.71. She has 523,000 platelets. Sodium is 138, potassium 4.3, chloride 101, CO2 22, BUN 20, creatinine 1.1 with a glucose of 89. Calcium is 8.9, total bilirubin 0.38, AST 26, ALT 23, alkaline phosphatase 54, total protein 5.3 and albumin 2.9. IMPRESSION: 1. Bowel obstruction secondary to ovarian cancer with omental caking. 2. Severe protein calorie malnutrition. 3. Small bowel obstruction. RECOMMENDATION: 1. The patient has had an interval improvement with decompression using a nasogastric tube. Therefore, I discussed with the family the recommendation to place a percutaneous gastrostomy tube for decompression. They are in agreement understanding the risks and benefits and would like to proceed. I will place the patient on the schedule for a PEG on Wednesday. 2. I will consult dietary for initiation of TPN anticipating that she will need TPN at home during her chemotherapy. 3. I discussed access with Dr. Dahlia Albert and she recommends a dedicated PICC line for TPN. I will ask that they place a double-lumen PICC for TPN and blood draw. 4. Consent has been discussed with the family including her and her son. The patient is clear about the risk and benefits of placing a PEG. We will provide antibiotic prophylaxis on the morning of the exam. 5. Please hold Lovenox beginning Wednesday in anticipation of her procedure on Wednesday. cc: Dahlia Albert MD
[2016-11-01 02:27] LABS: BASO% 0.3 % (0.0-0.8); EOS# 0.04 X1000 (0.0-0.7); EOS% 0.6 % (0.0-10.0); HEMATOCRIT 27.7 % (37.0-47.0); HEMOGLOBIN 9.4 g/dL (12.0-16.0); LYMPH# 0.72 X1000 (1.2-3.4); LYMPH% 11.7 % (20.5-51.1); MANUAL DIFF NEEDED? NO; MCH 24.5 PG (27-31); MCHC 33.9 g/dL (33-37); MCV 72.3 FL (81-99); MONO# 0.97 X1000 (0.11-0.59); MONO% 15.7 % (1.7-9.3); MPV 8.5 FL (7.4-10.4); NEUT% 71.7 % (42.2-75.2); PLT 430 X1000 (130-400); RBC 3.83 XMIL (4.2-5.4)
[2016-11-01 02:42] LABS: AGAP 13; ALBUMIN 2.7 g/dL (3.5-5.0); BUN 24 mg/dL (8-22); CALCIUM 8.7 mg/dL (8.8-10.2); CHLORIDE 102 mmol/L (98-107); COSMO 281; POTASSIUM 4.1 mmol/L (3.5-5.1); SODIUM 138 mmol/L (136-145); TCO2 23 mmol/L (25-35)
[2016-11-01] MEDS: HUMALOG SUBQ SCH ×5 (03:04→21:10)
[2016-11-01] MEDS: VANCOMYCIN 1,500 MG in NS 250 ML IV SCH ×2 (03:04→21:09)
[2016-11-01] MEDS: SODIUM CHLORIDE 0.9% INJ SCH ×2 (05:56→21:10)
[2016-11-01] MEDS: MAXIPIME 1 GM/NS 1 GM/50 ML IVPB IV SCH ×2 (05:56→21:10)
[2016-11-01] MEDS: PROTONIX IV SCH ×2 (05:56→21:10)
[2016-11-01] MEDS: LOVENOX SUBQ SCH (09:17)
--- NOTE | 2016-11-01 09:18 | Diag Imaging Result Document ---
PROCEDURE NAME: CHEST-1 VIEW - 11/01/2016 PORTABLE CHEST: Compared with 10/27/2016. There are moderate bilateral pleural effusions which appear to have increased. There is probable compressive atelectasis at the bilateral lower lungs as seen on the 10/30/2016 CT thorax. There is no pneumothorax identified. There is a nasogastric tube extending to the stomach. IMPRESSION: Moderate bilateral pleural effusions.
[2016-11-01] MEDS: ASPIRIN EC PO SCH (09:19)
--- NOTE | 2016-11-01 09:19 | Diag Imaging Result Document ---
PROCEDURE NAME: ABDOMEN FLAT/UPRIGHT - 11/01/2016 SUPINE AND UPRIGHT ABDOMEN: Compared with 10/31/2016. FINDINGS: There is a small amount of bowel gas visible. There is no substantial gaseous bowel distention identified. Bowel loops which are distended with fluid, as was seen on the 10/30/2016 CT scan, are difficult to identify by radiographs. There is a nasogastric tube extending to the mid stomach. IMPRESSION: No substantial gaseous bowel distention.
[2016-11-01] MEDS: MARINOL PO SCH (09:20)
[2016-11-01] MEDS: CARDIZEM CD PO SCH (09:20)
[2016-11-01] MEDS: FOLIC ACID PO SCH (09:20)
[2016-11-01] MEDS: NEURONTIN PO SCH ×2 (09:21→20:58)
[2016-11-01] MEDS: THERA M PLUS PO SCH (09:21)
[2016-11-01] MEDS: MIRALAX PO SCH (09:21)
[2016-11-01] MEDS: PRINIVIL PO SCH (12:14)
[2016-11-01] MEDS: DILAUDID IV PRN ×2 (12:23→21:11)
[2016-11-01 14:56] LABS: INR 1.16; PROTIME 12.3 Seconds (9.2-11.7)
--- NOTE | 2016-11-01 17:24 | PROGRESS NOTE ---
DATE: 11/01/2016 SUBJECTIVE: The patient is sitting up in a chair. She complains of a sore throat because of the NG tube. The patient has had about 700 mL of NG output. However, the patient is drinking Sprite and eating ice chips. OBJECTIVE: Vital Signs: Temperature 97 degrees, blood pressure 148/85, heart rate 80, respirations 20, O2 saturation is 98% on 3 L nasal cannula. General: This is an elderly female, sitting in a chair, in no acute distress. Head: Normocephalic, atraumatic. Heart: S1, S2. Normal. Tachycardic. Lungs: Clear to auscultation bilaterally. Diminished breath sounds at the bases. Abdomen: Positive bowel sounds. Distended, nontender. Extremities: No edema. No cyanosis. No calf tenderness. Neurologic: The patient is alert and oriented x3. LABS: White blood cell count 6.1, hemoglobin 9.4, hematocrit 27, platelets 436, 000. Sodium 138, potassium 4.1, chloride 102, CO2 23, BUN 24, creatinine 1, glucose 127. ASSESSMENT AND PLAN: 1. Bowel obstruction. The patient is scheduled to undergo a percutaneous gastrostomy tube tomorrow. She is currently on Clinimix at this time and will be transitioned to TPN. 2. Ovarian carcinoma with extensive omental caking. The patient is status post 1 cycle of chemo. 3. Severe protein calorie malnutrition. The patient will be started on TPN. Further management as per the railroad operating engineer. 4. Bilateral pleural effusions. Stable. 5. Deep venous thrombosis prophylaxis. We will hold the SundaySky tonight in anticipation of the planned GI procedure tomorrow. cc: Danni Liang MD [facility]
[2016-11-01] MEDS: REMERON PO SCH (20:58)
[2016-11-01] MEDS: DULCOLAX PR SCH (21:09)
[2016-11-02] MEDS: CRESTOR PO SCH (06:27)
[2016-11-02] MEDS: HUMALOG SUBQ SCH ×3 (06:28→18:01)
[2016-11-02 06:44] LABS: BASO% 0.4 % (0.0-0.8); EOS# 0.04 X1000 (0.0-0.7); EOS% 0.7 % (0.0-10.0); HEMATOCRIT 29.7 % (37.0-47.0); HEMOGLOBIN 9.8 g/dL (12.0-16.0); LYMPH# 1.09 X1000 (1.2-3.4); MANUAL DIFF NEEDED? NO; MCH 23.9 PG (27-31); MCV 72.4 FL (81-99); MONO# 0.79 X1000 (0.11-0.59); MONO% 14.5 % (1.7-9.3); MPV 9.4 FL (7.4-10.4); NEUT% 64.4 % (42.2-75.2); PLT 425 X1000 (130-400)
[2016-11-02] MEDS: CLINIMIX E 4.25%-5% SOLUTION 1,000 ML IV SCH ×3 (06:48→18:06)
[2016-11-02 07:11] LABS: AGAP 14; ALBUMIN 2.2 g/dL (3.5-5.0); BUN 23 mg/dL (8-22); CALCIUM 8.5 mg/dL (8.8-10.2); CHLORIDE 104 mmol/L (98-107); COSMO 278; POTASSIUM 4.3 mmol/L (3.5-5.1); SODIUM 136 mmol/L (136-145); TCO2 18 mmol/L (25-35)
[2016-11-02 07:24] LABS: ALBUMIN 2.7 g/dL (3.5-5.0); ALKALINE PHOSPHATASE 49 U/L (32-104); DIRECT BILIRUBIN < 0.20 mg/dL (0.00-0.20); GOT 27 U/L (10-30); GPT 18 U/L (10-36); TOTAL BILIRUBIN 0.28 mg/dL (0.20-1.00)
[2016-11-02] MEDS: DUONEB (A & A) INH PRN (07:28)
[2016-11-02] MEDS ORDERED: NS 250 ML ONE (08:51)
[2016-11-02] MEDS: ASPIRIN EC PO SCH (10:57)
[2016-11-02] MEDS: MARINOL PO SCH (10:58)
[2016-11-02] MEDS: CARDIZEM CD PO SCH (10:59)
[2016-11-02] MEDS: FOLIC ACID PO SCH (10:59)
[2016-11-02] MEDS: MIRALAX PO SCH (11:00)
[2016-11-02] MEDS: THERA M PLUS PO SCH (11:01)
[2016-11-02] MEDS: NEURONTIN PO SCH ×2 (11:02→22:07)
[2016-11-02] MEDS: PRINIVIL PO SCH (11:02)
[2016-11-02] MEDS: MAXIPIME 1 GM/NS 1 GM/50 ML IVPB IV SCH ×2 (11:11→22:06)
[2016-11-02] MEDS: PROTONIX IV SCH ×2 (11:11→22:05)
--- NOTE | 2016-11-02 13:48 | PROGRESS NOTE ---
DATE: 11/02/2016 SUBJECTIVE: The patient is sitting at the edge of the bed. She is awaiting her procedure planned for today. She states that her throat hurts from the NG tube, but otherwise has no other complaints. OBJECTIVE: Vital Signs: Temperature 97.9 degrees, blood pressure 121/48, heart rate 121 respirations 20. O2 saturations 97% on 3 L nasal cannula. General: This is a chronically ill- appearing, elderly female, sitting at the edge of the bed, in no acute distress. HEENT: Head normocephalic, atraumatic. Heart: S1, S2. Normal. Tachycardic. Lungs: Clear to auscultation bilaterally. Diminished breath sounds at the bases. Abdomen: Positive bowel sounds. Soft. Distended. Nontender. Extremities: +1 edema. No cyanosis. No calf tenderness. Neurologic: The patient is alert and oriented x3. LABS: White blood cell count 5.4, hemoglobin 9.8, hematocrit 29, platelets 425,000. Sodium 136, potassium 4.3, chloride 104, CO2 18, BUN 23, creatinine 1, glucose 134, calcium 8.5, phosphorus 2.5, albumin 2.7. ASSESSMENT AND PLAN: 1. Ovarian cancer with peritoneal carcinomatosis. The patient is scheduled to undergo placement of a gastrostomy tube to aid with the compression today. 2. Bowel obstruction. Will await placement of the percutaneous gastrostomy tube. 3. Severe protein calorie malnutrition. The patient will be started on TPN today. 4. Bilateral pleural effusions. Stable. 5. Deep vein thrombosis prophylaxis. Will restart Lovenox tomorrow. cc: Danni Liang MD
[2016-11-02 13:49] LABS: MAGNESIUM 2.4 mg/dL (1.5-2.7); PREALBUMIN 5.5 mg/dL (20-40)
[2016-11-02] MEDS ORDERED: XYLOCAINE-MPF 2% ONE (13:50)
[2016-11-02] MEDS ORDERED: DIPRIVAN 1% ONE (13:51)
[2016-11-02] MEDS: DILAUDID IV PRN ×2 (15:55→22:06)
[2016-11-02] MEDS: TPN ELECTROLYTES 20 ML, MAGNESIUM SULFATE 4 MEQ, POTASSIUM CHLORIDE 20 MEQ, M.V.I.-12 1... IV SCH ×8 (16:37)
[2016-11-02] MEDS: LIPOSYN 20% 250 ML IV SCH (16:38)
[2016-11-02] MEDS ORDERED: D10W 1,000 ML IV SCH (17:00)
[2016-11-02] MEDS: CARAFATE LIQUID PO SCH ×2 (18:01→22:06)
[2016-11-02] MEDS: VANCOMYCIN 1,500 MG in NS 250 ML IV SCH (18:08)
[2016-11-02] MEDS: SODIUM CHLORIDE 0.9% INJ SCH (22:05)
[2016-11-02] MEDS: DULCOLAX PR SCH (22:06)
[2016-11-02] MEDS: ZOFRAN IV PRN (22:06)
[2016-11-02] MEDS: REMERON PO SCH (22:07)
[2016-11-03] MEDS: HUMALOG SUBQ SCH ×6 (05:58→17:22)
[2016-11-03] MEDS: CARAFATE LIQUID PO SCH ×4 (05:59→21:55)
[2016-11-03 06:39] LABS: BASO% 0.2 % (0.0-0.8); EOS# 0.05 X1000 (0.0-0.7); EOS% 1.1 % (0.0-10.0); HEMATOCRIT 28.9 % (37.0-47.0); HEMOGLOBIN 9.3 g/dL (12.0-16.0); LYMPH# 0.79 X1000 (1.2-3.4); LYMPH% 17.9 % (20.5-51.1); MANUAL DIFF NEEDED? YES; MCH 23.4 PG (27-31); MCHC 32.2 g/dL (33-37); MCV 72.6 FL (81-99); MONO# 0.69 X1000 (0.11-0.59); MONO% 15.6 % (1.7-9.3); MPV 9.6 FL (7.4-10.4); NEUT% 65.2 % (42.2-75.2); PLT 410 X1000 (130-400); RBC 3.98 XMIL (4.2-5.4)
[2016-11-03 06:59] LABS: AGAP 11; BUN 24 mg/dL (8-22); CALCIUM 9.1 mg/dL (8.8-10.2); CHLORIDE 106 mmol/L (98-107); COSMO 285; MAGNESIUM 2.5 mg/dL (1.5-2.7); SODIUM 139 mmol/L (136-145); TCO2 22 mmol/L (25-35)
[2016-11-03 07:18] LABS: BANDS 2 % (0-1); EOS 2 % (1-10); LYMPHS 22 % (21-51); MONO 8 % (1-9)
[2016-11-03] MEDS: DUONEB (A & A) INH PRN (07:21)
[2016-11-03] MEDS: MAXIPIME 1 GM/NS 1 GM/50 ML IVPB IV SCH ×2 (09:37→21:56)
[2016-11-03] MEDS: PROTONIX IV SCH ×2 (09:37→21:54)
[2016-11-03] MEDS: SODIUM CHLORIDE 0.9% INJ SCH ×2 (09:37→21:55)
[2016-11-03] MEDS: VANCOMYCIN 1,500 MG in NS 250 ML IV SCH (09:42)
[2016-11-03] MEDS: NEURONTIN PO SCH ×2 (10:01→21:55)
[2016-11-03] MEDS: PRINIVIL PO SCH (10:01)
[2016-11-03] MEDS: FOLIC ACID PO SCH (10:01)
[2016-11-03] MEDS: THERA M PLUS PO SCH (10:01)
[2016-11-03] MEDS: ASPIRIN EC PO SCH (10:01)
[2016-11-03] MEDS: CARDIZEM CD PO SCH (10:01)
[2016-11-03] MEDS: MIRALAX PO SCH (10:02)
[2016-11-03] MEDS: MARINOL PO SCH (10:06)
[2016-11-03] MEDS: DILAUDID IV PRN ×2 (13:08→21:56)
[2016-11-03] MEDS: LOVENOX SUBQ SCH (14:04)
--- NOTE | 2016-11-03 14:04 | PROGRESS NOTE ---
DATE: 11/03/2016 SUBJECTIVE: The patient is sitting at the edge of the bed. She states that she feels a lot better today. No acute events overnight. OBJECTIVE: Vital Signs: Temperature 97.6 degrees, blood pressure 121/49, heart rate 114, respirations 17, O2 saturations 95% on 3 L nasal cannula. General: This is an elderly female, sitting at the edge of the bed, in no acute distress. Head: Normocephalic atraumatic. Heart: S1, S2 normal tachycardic. Lungs: Clear to auscultation bilaterally. Diminished breath sounds at the bases. Abdomen: Positive bowel sounds. Soft, nontender. Extremities: Trace pedal edema. No cyanosis. No calf tenderness. Neurologic: The patient is alert and oriented x3. LABS: White blood cell count 4.4, hemoglobin 9.3, hematocrit 28, platelets 410, 000. Sodium 139, potassium 4, chloride 106, CO2 22, BUN 24, creatinine 0.9, glucose 152, calcium 9.1. Phosphorus 2.5. ASSESSMENT AND PLAN: 1. Ovarian cancer with peritoneal carcinomatosis. Management as per the oncologist. 2. Bowel obstruction status post percutaneous gastrostomy tube placement. The patient is currently on TPN. 3. Bilateral pleural effusions. Stable. 4. Severe protein calorie malnutrition. Continue on TPN. 5. Deep vein thrombosis prophylaxis. Continue on Lovenox. 6. Continue with physical therapy. 7. Disposition. The patient would like home health upon discharge. Will consult pediatric social worker. cc: Danni Liang MD [facility]
[2016-11-03] MEDS: LIPOSYN 20% 250 ML IV SCH (17:00)
[2016-11-03] MEDS: TPN ELECTROLYTES 20 ML, MAGNESIUM SULFATE 4 MEQ, POTASSIUM CHLORIDE 20 MEQ, M.V.I.-12 1... IV SCH ×8 (17:00)
[2016-11-03] MEDS: DULCOLAX PR SCH (21:55)
[2016-11-03] MEDS: REMERON PO SCH (21:55)
--- NOTE | 2016-11-03 22:15 | PROGRESS NOTE ---
DATE: 11/03/2016 SUBJECTIVE: The patient states that she feels better today. However, she reports tenderness around her PEG tube. Overall, she has felt better today than she has in the last several days. She was able to tolerate some liquids by mouth without nausea or vomiting. OBJECTIVE: General: She is resting comfortably in the bed. She describes some tenderness at the site of the PEG. Vital signs: On exam her blood pressure is 125/57, pulse 113, respirations 17, temperature of 97.7 degrees. Pulmonary: Lungs are clear to auscultation anteriorly. Cardiovascular: She has regular rate and rhythm. Abdominal Exam: Reveals hypoactive bowel sounds. The abdomen is firm and distended. The PEG in the left upper quadrant is somewhat tight to the skin. The bumper has been cinched down tighter than we placed at the end of our procedure. Initially she had tenderness with rotation of the PEG. After loosening the bumper, the pain resolved and we were able to rotated freely. The bumper was placed at 4 cm on the external side of the bumper. Extremities: Bilaterally are negative for edema. OBJECTIVE DATA: Reveals a hemoglobin of 9.3 with hematocrit of 28.9 and a white count of 4.42. She has 410,000 platelets. Sodium is 139, potassium 4.0, chloride 106, CO2 22, BUN 24, creatinine 0.9 with a glucose of 152. Calcium is 9.1, phosphorus 2.7, magnesium 2.5. RECOMMENDATION: 1. From a GI perspective, I would continue the decompressive PEG to intermittent suction. 2. She is currently receiving parental nutrition for nutrition support. I would continue this until she has the return of gut integrity if the chemotherapy is effective. 3. Continue Protonix 40 mg IV q.12 hours. 4. Continue to monitor serial hemoglobin and hematocrit. 5. Additional recommendations to follow based on her clinical course. 6. It should be noted that the patient was scheduled for an outpatient colonoscopy next week as part of her overall evaluation. In light of her current events, I will cancel the procedure until she has had clinical improvement. ADDENDUM: After rounds the patient noted constipation. She is specifically requesting some assistance. I will prescribe a Dulcolax suppository that can be administered in the morning. cc: Radha Enriquez M.D. [facility]
--- NOTE | 2016-11-03 23:46 | OPERATIVE NOTE ---
PROCEDURE DATE: 11/02/2016 REFERRING PHYSICIAN: Dahlia Albert M.D. HOSPITALIST: Danni Liang M.D. INDICATION FOR PROCEDURE: 1. Small bowel obstruction. 2. Ovarian cancer. PROCEDURE PERFORMED: Esophagogastroduodenoscopy with PEG placement. CONSENT: Informed consent was obtained from the patient prior to the procedure. The risks, benefits, and alternatives were discussed. MEDICATION: The patient received monitored anesthesia care. PERFORMING PHYSICIAN: Ellen Parrish M.D. ASSISTANTS: 1. [facility] 2. Latesha Bledsoe RN. 3. Linda Sparks CRNA. 4. Mesfin Ribeiro M.D. (anesthesia). COMPLICATIONS: There were no complications. ESTIMATED BLOOD LOSS: 2-3 mL. FINDINGS: After sedation was achieved, the upper endoscope was inserted to the 2nd portion of the duodenum. The hypopharynx appeared endoscopically normal. In the tubular esophagus, there was grade D erosive esophagitis. There was a nasogastric tube in place that was removed during the procedure. In the distal esophagus, there was a Schatzki ring at the GEJ but the lumen was widely patent. The GE junction was measured at 35 cm from the incisors. There was a hiatal hernia that spanned from 35-40 cm. In the gastric lumen, there was erosive gastritis. There were multiple ecchymotic spots consistent with nasogastric tube trauma. On retroflexed view, there were a few scattered erosions in the fundus consistent with acute gastritis. There were no masses or varices seen. The pylorus appeared endoscopically normal. The duodenum appeared endoscopically normal as well but the lumen was widely dilated consistent with the patient's known history of bowel obstruction. There were bilious secretions pooling in the third portion of the duodenum. After the exam was complete, the scope was retracted into the midgastric body. Using 1:1 ballottement and transillumination, a position for PEG placement was identified in the left upper quadrant approximately 3 fingerbreadths below the left costal margin. Using the short needle, 1% lidocaine was injected into the skin at the site of insertion. The site was again confirmed with transillumination and 1:1 ballottement. A skin incision was made. The trocar was inserted easily into the gastric lumen. The guidewire was secured with a snare and removed per mouth. The PEG tube was placed over the guidewire and pulled into position. There was a [employer]ck[employer] 24-Bhut[place] pull PEG lot #[id number] inserted into the midgastric body. The PEG was positioned at 2.5 cm at the skin and 4 cm at the external bumper. It was secured in position and flushed easily with 30 mL of fluid which was evacuated. The skin was sterilely dressed and the procedure was terminated. The patient tolerated the procedure without difficulty. IMPRESSION: 1. Grade D erosive esophagitis. 2. Schatzki ring. 3. Hiatal hernia. 4. Acute gastritis. 5. Nasogastric tube trauma. 6. Normal duodenal mucosa with a dilated lumen. 7. Successful percutaneous endoscopic gastrostomy placement. RECOMMENDATION: 1. Because of the patient's bowel obstruction, I recommend placing the PEG to gravity. She may require low intermittent suction depending on her abdominal distention. 2. The PEG bumper should be rotated daily. 3. Please clean the PEG site with a 1:1 solution of hydrogen peroxide and sterile water q.12 hours for the 1st 24 hours. After 24 hours, please remove the dressing and clean the site daily with soap and water. 4. Begin Carafate 1 g 4 times a day orally in light of the severe erosive esophagitis. 5. Continue Protonix 40 mg IV q.12 hours. 6. She will receive nutrition via her parenteral access with full support parental nutrition. 7. Additional recommendations to follow based on her clinical course. cc: Dahlia Albert MD Hospitalist service [facility]
[2016-11-04] MEDS: HUMALOG SUBQ SCH ×7 (04:53→21:21)
[2016-11-04] MEDS: VANCOMYCIN 1,500 MG in NS 250 ML IV SCH (05:17)
[2016-11-04] MEDS: CARAFATE LIQUID PO SCH ×4 (06:20→21:00)
[2016-11-04 06:31] LABS: AGAP 10; BUN 28 mg/dL (8-22); CALCIUM 8.8 mg/dL (8.8-10.2); CHLORIDE 107 mmol/L (98-107); COSMO 291; MAGNESIUM 2.6 mg/dL (1.5-2.7); SODIUM 141 mmol/L (136-145); TCO2 24 mmol/L (25-35)
[2016-11-04 06:40] LABS: HEMOGLOBIN A1C 6.3 % (4.8-6.0)
[2016-11-04] MEDS: DUONEB (A & A) INH PRN ×2 (07:42→11:27)
[2016-11-04] MEDS: MAXIPIME 1 GM/NS 1 GM/50 ML IVPB IV SCH ×2 (08:28→21:25)
[2016-11-04] MEDS: CRESTOR PO SCH (08:28)
[2016-11-04] MEDS: PRINIVIL PO SCH (08:28)
[2016-11-04] MEDS: CARDIZEM CD PO SCH (08:28)
[2016-11-04] MEDS: THERA M PLUS PO SCH (08:28)
[2016-11-04] MEDS: NEURONTIN PO SCH ×2 (08:28→21:24)
[2016-11-04] MEDS: PROTONIX IV SCH ×2 (08:28→21:19)
[2016-11-04] MEDS: ASPIRIN EC PO SCH (08:28)
[2016-11-04] MEDS: FOLIC ACID PO SCH (08:29)
[2016-11-04] MEDS: MIRALAX PO SCH (08:38)
[2016-11-04] MEDS: MARINOL PO SCH (08:39)
[2016-11-04] MEDS ORDERED: DULCOLAX PR ONE (09:00)
[2016-11-04] MEDS: ZOFRAN IV PRN (09:39)
--- NOTE | 2016-11-04 13:56 | PROGRESS NOTE ---
DATE: 11/04/2016 SUBJECTIVE: The patient is resting comfortably in bed. She was sitting up in the chair earlier today. She does complain of shortness of breath when she lays on her back. OBJECTIVE: Vital Signs: Temperature 98 degrees, blood pressure 107/45, heart rate 114, respirations 17, O2 saturation 97% on 3L nasal cannula. General: This is a elderly female, lying in bed in no acute distress. HEENT: Head normocephalic, atraumatic. Heart: S1 and S2 normal. Tachycardic. Lungs: Clear to auscultation bilaterally. Diminished breath sounds at the bases. Abdomen: Positive bowel sounds. Soft, nontender. Extremities: No edema. No cyanosis. No calf tenderness. Neurologic: The patient is alert and oriented. LABORATORIES: Sodium 141, potassium 4, chloride 107, CO2 of 24, BUN 28, creatinine 1, glucose 170. Hemoglobin A1c 6.3. ASSESSMENT AND PLAN: 1. 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 Management as per Dr. Albert. 2. Bowel obstruction, status post percutaneous endoscopic gastrostomy tube placement. Stable. 3. Erosive esophagitis. Continue on Carafate and Protonix. 4. Gastritis. Continue on Protonix. 5. Diabetes mellitus, type 2. Continue on sliding scale insulin. 6. Deep vein thrombosis prophylaxis. Continue on Lovenox. 7. Continue with physical therapy. 8. Disposition. We will plan to discharge the patient home with home health services once cleared by the oncologist and collaborative physician. cc: Danni Liang MD
--- NOTE | 2016-11-04 14:11 | Diag Imaging Result Doc PS360 ---
EXAM: FLAT/UPRIGHT ABD/1 VIEW CHEST HISTORY: pleural effusions/obstruction COMMENT: There is some gas in the sigmoid colon. There is no evidence of gastric distention or small bowel dilatation. There is a gastrostomy tube. There is more colonic gas and on the previous study of 11/01/2016. Portable chest: There are bilateral pleural effusions more so on the left than the right. This is worsened slightly since 11/01/2016. NG tube is been removed. There is a PICC line on the right with its tip in the right atrium. The right-sided effusion appears stable. IMPRESSION: Slightly increased colonic gas since previous study. Worsened pleural effusion on the left. Electronically signed by Trung Trinh 11/04/2016 2:08 PM
[2016-11-04] MEDS: LOVENOX SUBQ SCH (15:28)
[2016-11-04] MEDS: TPN ELECTROLYTES 20 ML, MAGNESIUM SULFATE 4 MEQ, POTASSIUM CHLORIDE 20 MEQ, M.V.I.-12 1... IV SCH ×8 (17:28)
[2016-11-04] MEDS: LIPOSYN 20% 250 ML IV SCH (17:28)
[2016-11-04] MEDS: SODIUM CHLORIDE 0.9% INJ SCH (21:19)
[2016-11-04] MEDS: REMERON PO SCH (21:25)
[2016-11-04] MEDS: DULCOLAX PR SCH (21:25)
[2016-11-04] MEDS: DILAUDID IV PRN (21:50)
--- NOTE | 2016-11-04 21:55 | PROGRESS NOTE ---
DATE: 11/04/2016 SUBJECTIVE: The patient states that she is feeling better today from a GI perspective. Her PEG site remains sore but she is tolerating the decompression on an as needed basis. She notes a little dyspnea. On CT scan, her pleural effusion on the left side has increased slightly. Her right pleural effusion has been stable. She was able to sit up in a chair today and tolerate sips of clears with minimal GI distress. OBJECTIVE: Vital Signs: On examination, her blood pressure is 107/45, pulse 114, respirations 17, temp of 98.0 degrees. Pulmonary Examination: Lungs are clear anteriorly but she has marked decreased breath sounds posteriorly. Cardiovascular Examination: She has resting tachycardia with regular rhythm. Abdomen: Her abdomen remains firm and distended with hypoactive bowel sounds. Her PEG in the left upper quadrant was rotated with a moderate amount of tenderness. The patient was shown how to rotate her tube and to monitor the measurements. She was able to rotate the tube freely with minimal discomfort once the bolster was slightly loosened. It is draining appropriately. OBJECTIVE DATA: Remarkable for sodium 141, potassium 4.0, chloride 107, CO2 24 , BUN 28, creatinine 1.0 with a glucose 170. Calcium is 8.8, phosphorus is 3.0 and magnesium is 2.6. RECOMMENDATION: 1. From a GI perspective, her decompressive PEG tube is working fine. She will need [facility] to help her with management of the PEG tube at home. She is doing well with local monitoring. 2. She is receiving parenteral nutritional support that is being managed by Dr. Dahlia Albert. 3. From my perspective, she is hemodynamically stable and appropriate for outpatient management. 4. I recommended that the patient return to clinic in 4-6 weeks to assess interval progress. cc: MD Danni Daniel MD Heather Shah, MD MTDD
[2016-11-05] MEDS: CARAFATE LIQUID PO SCH ×4 (05:26→21:00)
[2016-11-05 06:19] LABS: HEMATOCRIT 27.1 % (37.0-47.0); HEMOGLOBIN 8.7 g/dL (12.0-16.0); MCH 23.7 PG (27-31); MCHC 32.1 g/dL (33-37); MCV 73.8 FL (81-99); RBC 3.67 XMIL (4.2-5.4)
[2016-11-05 06:33] LABS: CALCIUM 8.7 mg/dL (8.8-10.2); MAGNESIUM 2.6 mg/dL (1.5-2.7); POTASSIUM 3.7 mmol/L (3.5-5.1)
[2016-11-05] MEDS: HUMALOG SUBQ SCH ×4 (06:43→21:25)
[2016-11-05] MEDS: VANCOMYCIN 1,500 MG in NS 250 ML IV SCH (06:48)
[2016-11-05 06:51] LABS: ALBUMIN 2.7 g/dL (3.5-5.0); ALKALINE PHOSPHATASE 52 U/L (32-104); DIRECT BILIRUBIN < 0.20 mg/dL (0.00-0.20); GOT 28 U/L (10-30); GPT 22 U/L (10-36); TOTAL BILIRUBIN 0.21 mg/dL (0.20-1.00); TOTAL PROTEIN 6.1 g/dL (6.3-8.3)
[2016-11-05] MEDS: DUONEB (A & A) INH PRN ×2 (07:31→11:20)
[2016-11-05] MEDS: MIRALAX PO SCH (08:38)
[2016-11-05] MEDS: NEURONTIN PO SCH ×2 (08:39→21:24)
[2016-11-05] MEDS: ASPIRIN EC PO SCH (08:39)
[2016-11-05] MEDS: FOLIC ACID PO SCH (08:39)
[2016-11-05] MEDS: PRINIVIL PO SCH (08:39)
[2016-11-05] MEDS: CARDIZEM CD PO SCH (08:39)
[2016-11-05] MEDS: THERA M PLUS PO SCH (08:40)
[2016-11-05] MEDS: SODIUM CHLORIDE 0.9% INJ SCH ×2 (08:40→21:24)
[2016-11-05] MEDS: PROTONIX IV SCH ×2 (08:40→21:24)
[2016-11-05] MEDS: MARINOL PO SCH (08:40)
[2016-11-05] MEDS: MAXIPIME 1 GM/NS 1 GM/50 ML IVPB IV SCH ×2 (08:40→21:20)
[2016-11-05 11:49] LABS: INR 1.14; PROTIME 12.1 Seconds (9.2-11.7); PTT 31.6 Seconds (22.0-36.0)
[2016-11-05] MEDS ORDERED: LASIX IV ONE (12:26)
--- NOTE | 2016-11-05 13:57 | PROGRESS NOTE ---
DATE: 11/05/2016 SUBJECTIVE: The patient is sitting up in the chair. She states that she feels more short of breath today. She does not have any other complaints. OBJECTIVE: Vital Signs: Temperature 98.1 degrees, blood pressure 105/71, heart rate 107, respirations 18, O2 saturations 98% on 3 L nasal cannula. General: This is a chronically ill- appearing elderly female, sitting in a chair in no acute distress. Head: Normocephalic, atraumatic. Heart: S1, S2 normal. Tachycardic. Lungs: Diminished breath sounds at the bases. Equal air entry bilaterally. Abdomen: Positive bowel sounds. Soft, nontender , nondistended. Extremities: 2+ edema. Neurologic: The patient is alert and oriented x3. No focal neurologic deficits noted. LABS: White blood cell count 6.7, hemoglobin 8.7, hematocrit 27, platelets 375, 000. Sodium 141, potassium 3.7, chloride 106, CO2 23, BUN 33, creatinine 1.1. Glucose 200. ASSESSMENT AND PLAN: 1. Metastatic ovarian carcinoma with peritoneal carcinomatosis. Management as per the oncologist. 2. 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 The patient will require home oxygen, as well as nebulizer machine. Will consult geriatric social worker to arrange this for the patient. The patient will undergo therapeutic thoracentesis today. 3. Bowel obstruction status post decompressive percutaneous endoscopic gastrostomy tube placement. Stable. 4. Protein calorie malnutrition. The patient will be discharged with TPN. human services care specialist is arranging this. 5. Gastritis and esophagitis. Continue on Carafate and Protonix. 6. Diabetes mellitus type 2. Continue on sliding scale insulin. DISPOSITION: The patient should be stable for discharge home tomorrow, once all of her home needs are met. cc: Danni Liang MD MTDD
[2016-11-05] MEDS: LIPOSYN 20% 250 ML IV SCH (17:34)
[2016-11-05] MEDS: TPN ELECTROLYTES 20 ML, MAGNESIUM SULFATE 4 MEQ, POTASSIUM CHLORIDE 20 MEQ, SODIUM PHOS... IV SCH ×8 (17:35)
[2016-11-05] MEDS: TPN ELECTROLYTES 20 ML, MAGNESIUM SULFATE 4 MEQ, POTASSIUM CHLORIDE 20 MEQ, M.V.I.-12 1... IV SCH ×8 (18:30)
[2016-11-05] MEDS: REMERON PO SCH (21:24)
[2016-11-05] MEDS: DULCOLAX PR SCH (21:24)
[2016-11-05] MEDS: DILAUDID IV PRN (22:00)
--- NOTE | 2016-11-06 01:54 | PROGRESS NOTE ---
DATE: 11/05/2016 SUBJECTIVE: The patient continues to have mild obstructive symptoms. Her CT scan confirms the presence of a complete mechanical obstruction secondary to omental caking and peritoneal carcinomatosis, which prevents normal peristalsis and contractility. She is currently receiving TPN, which she will need long-term, and most likely for the rest of her life. She is scheduled to undergo outpatient chemotherapy, which is the first intervention for peritoneal carcinomatosis secondary to BLEACH TESTER malignancy. She has not yet been evaluated for surgery, as she will need several courses of chemotherapy under the direction of Dr. Dahlia Albert. From a GI perspective, her PEG tube is less tender today. However, she notes persistent tenderness, but no erythema or drainage. She is having a small amount of ice chips per mouth. Her nutrition support is solely from TPN, in terms of calories and nutrients to meet her daily nutritional needs. She notes a significant amount of fatigue today, but otherwise denies chest pain, shortness of breath, nausea, or vomiting. PHYSICAL EXAMINATION: Vital Signs: Her blood pressure is 108/45, pulse of 113 , respirations 19, temperature of 98.8 degrees. General: She is sitting on the side of the bed , but is in no acute distress. Abdomen: Her abdomen remains distended and firm. OBJECTIVE DATA: Remarkable for hemoglobin of 8.7, with hematocrit of 27.1, and white count 6.74. She has 375,000 platelets. PT is 12.1, with an INR of 1.14, and a PTT of 31.6. Sodium 141, potassium 3.7, chloride 106, CO2 of 23, BUN 33, creatinine 1.1, with a glucose of 171. Calcium is 8.7, phosphorus 3.5, magnesium 2.6, total bilirubin 0.21, AST 28, ALT 22, alkaline phosphatase 52, total protein 6.1, and albumin 2.7. RECOMMENDATIONS: 1. With regard to her decompressive PEG, we discussed the importance of rotating her PEG daily, and monitoring the site for erythema and inflammation. 2. She is to monitor her G-tube output, so that we may adjust her IV fluids to avoid dehydration. 3. She will intermittently require MiraLAX, as her mechanical obstruction prevents her from having normal defecation. It will be important to minimize the backflow of her intestinal secretions, as her gastrointestinal tract is basically functioning as a lead pipe due to the encasement by tumor. We will need to have her on a bowel program, such that she would defecate on a regular basis, to avoid increased reflux and nausea with vomiting. 4. It is hopeful that the patient would be able to be discharged to home with home care, in the next 1-2 days. 5. Will have the patient return to clinic in 3-4 weeks to assess interval progress. cc: MD Danni Daniel MD Heather Shah, MD MTDD
[2016-11-06] MEDS: CARAFATE LIQUID PO SCH ×4 (02:30→21:37)
[2016-11-06] MEDS: HUMALOG SUBQ SCH ×4 (03:00→21:58)
[2016-11-06 06:28] LABS: AGAP 14; ALBUMIN 2.5 g/dL (3.5-5.0); ALKALINE PHOSPHATASE 62 U/L (32-104); BUN 37 mg/dL (8-22); CALCIUM 8.6 mg/dL (8.8-10.2); CHLORIDE 104 mmol/L (98-107); COSMO 291; DIRECT BILIRUBIN < 0.20 mg/dL (0.00-0.20); GOT 30 U/L (10-30); GPT 26 U/L (10-36); MAGNESIUM 2.7 mg/dL (1.5-2.7); POTASSIUM 3.6 mmol/L (3.5-5.1); SODIUM 140 mmol/L (136-145); TCO2 22 mmol/L (25-35); TOTAL BILIRUBIN 0.24 mg/dL (0.20-1.00); TOTAL PROTEIN 6.7 g/dL (6.3-8.3)
--- NOTE | 2016-11-06 07:19 | Diag Imaging Result Doc PS360 ---
CHEST-PORTABLE - 11/06/2016 INDICATION: pleural effusion TECHNIQUE: COMPARISON: 11/01/2016 FINDINGS: The patient has been extubated. There is a new right PICC line in good position with the catheter tip at the cavoatrial junction. There is a small to moderate right and large left pleural effusion. No new infiltrates. IMPRESSION: Exchange of lines and tubes. Otherwise no change from prior. Electronically signed by Mj Shaffer 11/06/2016 7:17 AM
[2016-11-06] MEDS: DUONEB (A & A) INH PRN ×3 (07:34→19:09)
[2016-11-06] MEDS ORDERED: VANCOMYCIN 1,500 MG in NS 250 ML IV SCH (09:00)
[2016-11-06] MEDS: MIRALAX PO SCH (09:50)
[2016-11-06] MEDS: MAXIPIME 1 GM/NS 1 GM/50 ML IVPB IV SCH ×2 (09:50→21:37)
[2016-11-06] MEDS: THERA M PLUS PO SCH (09:51)
[2016-11-06] MEDS: FOLIC ACID PO SCH (09:51)
[2016-11-06] MEDS: ASPIRIN EC PO SCH (09:51)
[2016-11-06] MEDS: PRINIVIL PO SCH (09:51)
[2016-11-06] MEDS: SODIUM CHLORIDE 0.9% INJ SCH ×2 (09:52→21:34)
[2016-11-06] MEDS: PROTONIX IV SCH ×2 (09:52→21:34)
[2016-11-06] MEDS: CARDIZEM CD PO SCH (09:52)
[2016-11-06] MEDS: NEURONTIN PO SCH ×2 (09:52→21:37)
[2016-11-06] MEDS: MARINOL PO SCH (10:04)
[2016-11-06] MEDS: CRESTOR PO SCH (10:04)
--- NOTE | 2016-11-06 11:51 | Diag Imaging Result Doc PS360 ---
CHEST-2 VIEWS - 11/06/2016 INDICATION: POST THORACENTESIS TECHNIQUE: COMPARISON: Earlier 11/06/2016 FINDINGS: There has been successful drainage of the rather large left basilar pleural effusion. There is some strandy atelectasis here. No pneumothorax. Stable small right pleural effusion. Stable right PICC line in good position. IMPRESSION: No complication from the left-sided thoracentesis. Electronically signed by Mj Shaffer 11/06/2016 11:48 AM
[2016-11-06] MEDS: DILAUDID IV PRN ×2 (12:15→21:33)
--- NOTE | 2016-11-06 12:38 | Diag Imaging Result Doc PS360 ---
THORACENTESIS W/IMAGE GUIDANCE - 11/06/2016 INDICATION: therapeutic thoracentesis TECHNIQUE: COMPARISON: Chest CT 10/30/2016 FINDINGS: A moderate left pleural effusion was demonstrated. 1.2 L was removed using evacuated bottles. The patient reported no symptoms from the procedure. IMPRESSION: Successful and uncomplicated ultrasound-guided left thoracentesis. Electronically signed by Mj Shaffer 11/06/2016 12:36 PM
[2016-11-06] MEDS: LOVENOX SUBQ SCH (15:07)
--- NOTE | 2016-11-06 15:36 | PROGRESS NOTE ---
DATE: 11/06/2016 SUBJECTIVE: No acute events noted overnight. OBJECTIVE: Vital Signs: Temperature 98 degrees, blood pressure 125/48, heart rate 102, respirations 20, O2 saturations 96% on 2 L nasal cannula. General: This is an elderly female, lying in bed, in no acute distress. Head normocephalic, atraumatic. Heart: S1 , S2 normal. Tachycardic. Lungs clear to auscultation bilaterally. No crackles. No rales. Abdomen: Positive bowel sounds. Soft, nontender, nondistended. Extremities 2+ edema. Neurologic : The patient is alert oriented x3. LABORATORY DATA: Sodium 140, potassium 3.6, chloride 104, CO2 of 22. BUN 37, creatinine 1.2, glucose 158. ASSESSMENT AND PLAN: 1. 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 The patient will follow up with Dr. Albert upon discharge to discuss further chemotherapy options. 2. Malignant bilateral pleural effusion secondary to ovarian cancer. The patient will have a thoracentesis done today. We will also arrange for home oxygen for the patient. 3. Bowel obstruction status post decompressive percutaneous endoscopic gastrostomy tube placement, stable. The patient will follow up with Dr. Parrish upon discharge. 4. Protein calorie malnutrition. The patient will be discharged home with total parenteral nutrition. 5. Gastritis and esophagitis. Continue on Carafate and Protonix. 6. Diabetes mellitus, type 2. Continue on sliding scale insulin. DISPOSITION: We will plan to discharge the patient home tomorrow with home health services. cc: Danni Liang MD MTDD
[2016-11-06] MEDS: TPN ELECTROLYTES 20 ML, MAGNESIUM SULFATE 4 MEQ, POTASSIUM CHLORIDE 20 MEQ, SODIUM PHOS... IV SCH ×8 (16:38)
[2016-11-06] MEDS: LIPOSYN 20% 250 ML IV SCH (16:38)
[2016-11-06] MEDS: DULCOLAX PR SCH (21:37)
[2016-11-07] MEDS: CARAFATE LIQUID PO SCH ×4 (03:35→21:54)
[2016-11-07] MEDS: HUMALOG SUBQ SCH ×5 (06:13→21:58)
[2016-11-07] MEDS: DUONEB (A & A) INH PRN ×2 (07:11→15:37)
[2016-11-07] MEDS: DILAUDID IV PRN (09:23)
[2016-11-07] MEDS: MIRALAX PO SCH (09:23)
[2016-11-07] MEDS: MARINOL PO SCH (09:23)
[2016-11-07] MEDS: MAXIPIME 1 GM/NS 1 GM/50 ML IVPB IV SCH (09:24)
[2016-11-07] MEDS: PROTONIX IV SCH ×2 (09:24→21:54)
[2016-11-07] MEDS: AMARYL PO SCH ×2 (09:25→21:54)
[2016-11-07] MEDS: THERA M PLUS PO SCH (09:25)
[2016-11-07] MEDS: SODIUM CHLORIDE 0.9% INJ SCH ×2 (09:25→21:54)
[2016-11-07] MEDS: PRINIVIL PO SCH (09:25)
[2016-11-07] MEDS: FOLIC ACID PO SCH (09:25)
[2016-11-07] MEDS: NEURONTIN PO SCH ×2 (09:26→21:54)
[2016-11-07] MEDS: CARDIZEM CD PO SCH (09:26)
[2016-11-07] MEDS: ASPIRIN EC PO SCH (09:26)
[2016-11-07] MEDS ORDERED: LASIX IV ONE (10:17)
[2016-11-07 10:42] LABS: BASO% 0.2 % (0.0-0.8); EOS% 1.2 % (0.0-10.0); HEMATOCRIT 26.2 % (37.0-47.0); HEMOGLOBIN 8.6 g/dL (12.0-16.0); IMM GRAN# 0.08 X1000 (0.0-0.04); LYMPH# 0.88 X1000 (1.2-3.4); LYMPH% 10.9 % (20.5-51.1); MANUAL DIFF NEEDED? NO; MCH 23.4 PG (27-31); MCHC 32.8 g/dL (33-37); MCV 71.4 FL (81-99); MONO# 0.83 X1000 (0.11-0.59); MONO% 10.2 % (1.7-9.3); MPV 9.8 FL (7.4-10.4); NEUT% 76.5 % (42.2-75.2); PLT 319 X1000 (130-400); RBC 3.67 XMIL (4.2-5.4)
[2016-11-07 10:55] LABS: ALBUMIN 2.6 g/dL (3.5-5.0); CALCIUM 8.3 mg/dL (8.8-10.2); POTASSIUM 3.7 mmol/L (3.5-5.1); TOTAL BILIRUBIN 0.26 mg/dL (0.20-1.00)
[2016-11-07] MEDS: 1/2 NS 1,000 ML IV SCH (11:40)
[2016-11-07 12:08] LABS: CALCIUM 8.3 mg/dL (8.8-10.2); MAGNESIUM 2.7 mg/dL (1.5-2.7); POTASSIUM 3.8 mmol/L (3.5-5.1)
[2016-11-07 12:38] LABS: PREALBUMIN 6.5 mg/dL (20-40)
[2016-11-07 14:00] LABS: URINE SOURCE CLEAN CATCH
[2016-11-07 14:05] LABS: BILIRUBIN URINE NEGATIVE (NEGATIVE); BLOOD URINE SMALL (NEGATIVE); COLOR YELLOW; GLUCOSE URINE NEGATIVE (NEGATIVE); LEUKOCYTES URINE SMALL (NEGATIVE); NITRITE URINE NEGATIVE (NEGATIVE); PROTEIN URINE 100 mg/dL (NEGATIVE); SP GRAVITY URINE 1.023; TURBIDITY URINE HAZY (CLEAR); UROBILINOGEN URINE NORMAL (NORMAL)
[2016-11-07 14:07] LABS: UR EPITHELIAL CELLS >10 /HPF (<10); URINE BACTERIA NEGATIVE /HPF; URINE MICRO REVIEW NEEDED? YES; URINE RBC <10 /HPF (<10)
[2016-11-07] MEDS: LOVENOX SUBQ SCH (14:08)
--- NOTE | 2016-11-07 14:12 | PROGRESS NOTE ---
DATE: 11/07/2016 SUBJECTIVE: The patient is sitting up in a chair and she states that she does not feel good today. She states that she feels weak and is having pain in her abdomen and side. OBJECTIVE: Vital Signs: Temperature 98 degrees, blood pressure 104/50, heart rate 109, respirations 20, O2 saturations 96% on 2 L nasal cannula. General: This is an elderly female, sitting up in a chair in no acute distress. Head: Normocephalic atraumatic. Heart: S1, S2. Normal. Tachycardic. Lungs: Diminished breath sounds at the bases. Equal air entry bilaterally. Abdomen: Positive bowel sounds. Soft, nontender, nondistended. Extremities: +1 edema. No cyanosis. No calf tenderness. Neurologic: The patient is alert and oriented x3. LABS: White blood cell count 8.1, hemoglobin 8.6, hematocrit 26, platelets 319,000. ASSESSMENT AND PLAN: 1. 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 The patient will follow up with Dr. Albert upon discharge for further treatment plan. 2. 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 Improved. Continue on supplemental oxygen. 3. Bowel obstruction status post decompressive percutaneous endoscopic gastrostomy tube placement. Stable. 4. Protein calorie malnutrition. Continue on TPN. 5. Gastritis and esophagitis. Continue on Carafate and Protonix. 6. Diabetes mellitus type 2. Continue on sliding scale insulin and Amaryl. 7. Disposition. Hopefully the patient will feel strong enough to be discharged tomorrow. cc: Danni Liang MD
[2016-11-07 14:22] LABS: URINE CASTS NONE SEEN; URINE CRYSTALS NONE SEEN; URINE SMALL ROUND CELLS NONE SEEN
[2016-11-07 14:31] LABS: UR CREAT RANDOM 130.7 mg/dL (11-20); UR SODIUM < 10 mmoll; UR UREA NITROGEN RANDOM 1208 mg/dL
[2016-11-07] MEDS: LIPOSYN 20% 250 ML IV SCH (17:36)
[2016-11-07] MEDS: TPN ELECTROLYTES 20 ML, MAGNESIUM SULFATE 4 MEQ, POTASSIUM CHLORIDE 20 MEQ, SODIUM PHOS... IV SCH ×8 (17:36)
[2016-11-07] MEDS: DULCOLAX PR SCH (21:59)
[2016-11-07] MEDS ORDERED: NORCO-5 PO ONE (22:21)
[2016-11-08] MEDS: DILAUDID IV PRN ×2 (00:40→13:24)
[2016-11-08] MEDS: ZOFRAN IV PRN ×2 (00:40→13:47)
[2016-11-08] MEDS: 1/2 NS 1,000 ML IV SCH (02:33)
[2016-11-08] MEDS: CARAFATE LIQUID PO SCH ×4 (02:33→20:36)
[2016-11-08] MEDS: HUMALOG SUBQ SCH ×5 (06:13→20:45)
[2016-11-08 06:55] LABS: MANUAL DIFF NEEDED? NO
[2016-11-08 07:16] LABS: HEMATOCRIT 25.1 % (37.0-47.0); HEMOGLOBIN 8.3 g/dL (12.0-16.0); MCH 23.7 PG (27-31); MCHC 33.1 g/dL (33-37); MCV 71.7 FL (81-99)
[2016-11-08 07:17] LABS: BASO% 0.1 % (0.0-0.8); EOS# 0.07 X1000 (0.0-0.7); EOS% 0.8 % (0.0-10.0); IMM GRAN# 0.08 X1000 (0.0-0.04); IMM GRAN% 0.9 % (0.0-0.5); LYMPH# 1.18 X1000 (1.2-3.4); LYMPH% 13.8 % (20.5-51.1); MONO# 0.72 X1000 (0.11-0.59); MONO% 8.4 % (1.7-9.3); MPV 10.1 FL (7.4-10.4); PLT 273 X1000 (130-400)
[2016-11-08 07:48] LABS: CALCIUM 8.1 mg/dL (8.8-10.2); POTASSIUM 3.6 mmol/L (3.5-5.1)
--- NOTE | 2016-11-08 08:56 | Diag Imaging Result Doc PS360 ---
EXAM: CHEST-PORTABLE HISTORY: dyspnea TECHNIQUE: AP upright portable at 0830 COMMENT: there are bilateral pleural effusions and probable pulmonary edema. This appears slightly worse than on the previous study of 11/06/2016, particularly in the left base. There is a PICC line on the right with its tip in the superior vena cava. IMPRESSION: Worsened pulmonary edema and pleural effusion on the left. Electronically signed by Trung Trinh 11/08/2016 8:54 AM
[2016-11-08] MEDS: CARDIZEM CD PO SCH (09:13)
[2016-11-08] MEDS: NEURONTIN PO SCH ×2 (09:13→20:37)
[2016-11-08] MEDS: ASPIRIN EC PO SCH (09:13)
[2016-11-08] MEDS: FOLIC ACID PO SCH (09:13)
[2016-11-08] MEDS: CRESTOR PO SCH (09:13)
[2016-11-08] MEDS: THERA M PLUS PO SCH (09:13)
[2016-11-08] MEDS: AMARYL PO SCH ×2 (09:13→20:37)
[2016-11-08] MEDS: PROTONIX IV SCH ×2 (09:14→20:38)
[2016-11-08] MEDS: SODIUM CHLORIDE 0.9% INJ SCH ×2 (09:14→20:38)
[2016-11-08] MEDS: MIRALAX PO SCH (09:14)
[2016-11-08] MEDS: MARINOL PO SCH (09:17)
[2016-11-08] MEDS: LOVENOX SUBQ SCH (13:24)
[2016-11-08] MEDS: LASIX IV SCH ×2 (13:26→20:42)
--- NOTE | 2016-11-08 14:54 | Diag Imaging Result Doc PS360 ---
EXAM: ABDOMEN FLAT/UPRIGHT HISTORY: pain TECHNIQUE: Portable upright at 1425 COMMENT: there is a gastrostomy tube in the left upper quadrant. There are distended small bowel loops. The stomach is not distended. The possibility of ascites cannot be excluded. There is no evidence for organomegaly or mass. IMPRESSION: Possible small bowel obstruction. Ascites. Electronically signed by Trung Trinh 11/08/2016 2:52 PM
[2016-11-08] MEDS: LIPOSYN 20% 250 ML IV SCH (15:02)
[2016-11-08] MEDS: TPN ELECTROLYTES 20 ML, MAGNESIUM SULFATE 4 MEQ, POTASSIUM CHLORIDE 20 MEQ, SODIUM PHOS... IV SCH ×8 (17:32)
--- NOTE | 2016-11-08 18:15 | PROGRESS NOTE ---
DATE: 11/08/2016 SUBJECTIVE: The patient states that she feels very weak and is complaining of abdominal pain and shortness of breath. OBJECTIVE: Vital Signs: Temperature 98 degrees, blood pressure 102/45, heart rate 94, respirations 18, O2 saturation is 100% on 3 L nasal cannula. General: This is a chronically ill- appearing, elderly female, lying in bed, in no acute distress. Head: Normocephalic, atraumatic. Heart: S1, S2. Normal. Tachycardic. Lungs: Diminished breath sounds at the bases. Coarse breath sounds bilaterally. Abdomen: Positive bowel sounds. Soft, nontender, mild distention. Extremities: There is 2+ edema in the lower extremities. Neurologic: The patient is alert and oriented x3. LABS: White blood cell count 8.5, hemoglobin 8.3, hematocrit 25, platelets 273, 000. Sodium 138, potassium 3.6, chloride 103, CO2 23, BUN 48, creatinine 1.3, glucose 212, calcium 8.1. ASSESSMENT AND PLAN: 1. 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 Aware. The patient will follow up with Dr. Albert as outpatient to discuss further treatment. 2. Pulmonary edema with malignant bilateral pleural effusions status post thoracentesis. The patient's chest x-ray shows pulmonary edema today. We will start the patient on Lasix 40 mg IV q.12. Continue with supplemental oxygen. 3. Bowel obstruction status post decompressive percutaneous endoscopic gastrostomy tube placement. The abdominal xray shows a small bowel obstruction. GI is following. 4. Protein calorie malnutrition. Continue on TPN. 5. Acute kidney injury. This may be secondary to diuretic therapy. We will continue to monitor the patient's urine output closely. 6. Diabetes mellitus type 2. Continue on sliding scale insulin and Amaryl. 7. Gastritis and esophagitis. Continue on Carafate and Protonix. cc: Danni Liang MD [facility]
[2016-11-08] MEDS: DUONEB (A & A) INH PRN (19:20)
[2016-11-08] MEDS: DULCOLAX PR SCH (20:36)
[2016-11-09] MEDS: DILAUDID IV PRN ×4 (00:48→23:43)
[2016-11-09] MEDS: CARAFATE LIQUID PO SCH ×4 (03:01→20:14)
[2016-11-09] MEDS: HUMALOG SUBQ SCH ×4 (06:22→23:37)
[2016-11-09 07:20] LABS: CALCIUM 8.1 mg/dL (8.8-10.2); POTASSIUM 3.6 mmol/L (3.5-5.1)
--- NOTE | 2016-11-09 07:25 | Diag Imaging Result Doc PS360 ---
EXAM: CHEST-PORTABLE INDICATION: pulmonary edema COMPARISON: 11/08/2016 FINDINGS: The right PICC line is stable. Bilateral pleural effusions are approximately stable as well as adjacent atelectasis and/or infiltrate. Increased interstitial markings are unchanged. No new consolidation is appreciated. Cardiac silhouette is stable. IMPRESSION: Essentially stable chest. Electronically signed by Walter Pelayo 11/09/2016 7:23 AM
[2016-11-09 07:35] LABS: MAGNESIUM 2.6 mg/dL (1.5-2.7)
[2016-11-09 07:37] LABS: BASO% 0.3 % (0.0-0.8); EOS# 0.11 X1000 (0.0-0.7); EOS% 1.4 % (0.0-10.0); HEMATOCRIT 26.1 % (37.0-47.0); HEMOGLOBIN 8.4 g/dL (12.0-16.0); IMM GRAN# 0.06 X1000 (0.0-0.04); IMM GRAN% 0.8 % (0.0-0.5); LYMPH# 1.16 X1000 (1.2-3.4); LYMPH% 14.8 % (20.5-51.1); MANUAL DIFF NEEDED? YES; MCH 23.1 PG (27-31); MCHC 32.2 g/dL (33-37); MCV 71.9 FL (81-99); MONO# 0.54 X1000 (0.11-0.59); MONO% 6.9 % (1.7-9.3); MPV 10.4 FL (7.4-10.4); NEUT% 75.8 % (42.2-75.2); PLT 289 X1000 (130-400); RBC 3.63 XMIL (4.2-5.4)
[2016-11-09 09:46] LABS: BANDS 2 % (0-1); LYMPHS 14 % (21-51); MONO 14 % (1-9)
[2016-11-09 09:47] LABS: HYPOCHROM 2+
[2016-11-09] MEDS: THERA M PLUS PO SCH (10:16)
[2016-11-09] MEDS: ASPIRIN EC PO SCH (10:16)
[2016-11-09] MEDS: CARDIZEM CD PO SCH (10:17)
[2016-11-09] MEDS: FOLIC ACID PO SCH (10:17)
[2016-11-09] MEDS: AMARYL PO SCH ×2 (10:17→20:14)
[2016-11-09] MEDS: NEURONTIN PO SCH ×2 (10:17→20:15)
[2016-11-09] MEDS: LASIX IV SCH ×2 (10:17→20:15)
[2016-11-09] MEDS: MARINOL PO SCH (10:17)
[2016-11-09] MEDS: PROTONIX IV SCH ×2 (10:17→20:14)
[2016-11-09] MEDS: MIRALAX PO SCH (10:18)
[2016-11-09] MEDS: SODIUM CHLORIDE 0.9% INJ SCH ×2 (10:18→20:14)
--- NOTE | 2016-11-09 13:52 | PROGRESS NOTE ---
DATE: 11/09/2016 SUBJECTIVE: The patient has no focal complaints. She just looks weak, in bed today. No major issues overnight. OBJECTIVE: Vital signs: Blood pressure 92/43, heart rate 98, respiratory rate 20, temperature 98.2, 98% on 3 L. Cardiovascular: Regular rate and rhythm. Pulmonary: Bilateral breath sounds. Clear to auscultation. Diminished at bases. GI: Soft, nontender, nondistended. Bowel sounds are positive. LABORATORY DATA: White count 7, hemoglobin and hematocrit 8 and 26, platelets 289,000. Chemistries: Creatinine is up to 1.5. PROBLEM LIST: 1. 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 Dr. Albert is following or at least is aware patient. 2. Bilateral pleural effusions. We will continue diuresis. She is still on supplemental oxygen. I am going to back down diuresis a little bit because her kidney function seems to be getting worse. 3. Bowel obstruction. She is status post a percutaneous endoscopic gastrostomy tube and she has a small bowel obstruction. GI is following. 4. Acute kidney injury. She is on total parental nutrition. I am probably going to give her a couple doses of albumin and follow closely. 5. Diabetes. Appears to be stable. DISPOSITION: Is complicated. Plan is to go home I guess with the G-tube for potential obstruction. She is already on home TPN. We will continue that and follow clinically. cc: Fredo Cervantes MD
[2016-11-09] MEDS: LOVENOX SUBQ SCH (14:24)
[2016-11-09] MEDS: ALBUMIN 25% IV SCH (14:24)
--- NOTE | 2016-11-09 14:24 | Diag Imaging Result Doc PS360 ---
EXAM: US GB < RUQ (LIMITED) INDICATION: per dr le, tap for ascites COMPARISON: None. FINDINGS: Note that this study was ordered as an ultrasound-guided paracentesis. However, a preprocedural scan showed no detectable ascites by ultrasound. As such, the paracentesis was deferred. There were bilateral pleural effusions. IMPRESSION: 1.No identifiable ascites by ultrasound. 2.Incidental bilateral pleural effusions. Electronically signed by Walter Pelayo 11/09/2016 2:22 PM
[2016-11-09 15:23] LABS: CALCIUM 8.1 mg/dL (8.8-10.2); MAGNESIUM 2.5 mg/dL (1.5-2.7); POTASSIUM 4.1 mmol/L (3.5-5.1); PREALBUMIN 7.2 mg/dL (20-40)
[2016-11-09] MEDS ORDERED: TPN ELECTROLYTES 20 ML, MAGNESIUM SULFATE 4 MEQ, POTASSIUM CHLORIDE 20 MEQ, SODIUM PHOS... IV SCH ×8 (17:00)
[2016-11-09] MEDS: LIPOSYN 20% 250 ML IV SCH (18:08)
[2016-11-09] MEDS: DULCOLAX PR SCH (20:15)
--- NOTE | 2016-11-10 04:10 | PROGRESS NOTE ---
DATE: 11/09/2016 SUBJECTIVE: The patient states that she is not feeling as well as usual today. She reports low back pain that is making her uncomfortable. Her shortness of breath has improved over the weekend with diuretics and thoracentesis. She notes that she is feeling less well today than before. She did not know if something could be added for pain control as her pain is 8/10. OBJECTIVE: On exam, her blood pressure is 104/43, pulse of 102, respirations 21 , temperature of 99.1 degrees. Her abdominal examination reveals a PEG site that is clean and dry. She is able to rotate the bumper freely. Her abdominal ultrasound revealed omental caking with a large tumor burden but no evidence of ascites. Objective data includes a hemoglobin of 8.4 with hematocrit of 26.1 and a white count of 7.86. She has 289,000 platelets. Her prealbumin is 7.2. Sodium is 137, potassium 4.1 , chloride 98, CO2 26, BUN 51, creatinine 1.6, and glucose of 111. Calcium is 8.1, phosphorus 3.9 , magnesium 2.5, AST 30, triglycerides 46, and cholesterol 47. RECOMMENDATION: 1. The patient's abdominal ultrasound is negative for ascites. Therefore, I would continue the decompressive percutaneous endoscopic gastrostomy as you are doing. 2. Continue intravenous Protonix to minimize acid secretion. 3. Consider a fentanyl patch for more consistent pain control in this patient who has significant omental caking. 4. Continue total parenteral nutrition as you are doing. 5. Additional recommendations to follow based on her clinical course. cc: MD Danni Daniel MD Heather Shah, MD MTDD
[2016-11-10] MEDS: CARAFATE LIQUID PO SCH ×4 (04:24→20:25)
[2016-11-10] MEDS: ALBUMIN 25% IV SCH ×2 (04:25→17:23)
[2016-11-10] MEDS: HUMALOG SUBQ SCH ×6 (05:05→22:03)
[2016-11-10 06:36] LABS: HEMATOCRIT 25.9 % (37.0-47.0); HEMOGLOBIN 8.2 g/dL (12.0-16.0); MCH 23.3 PG (27-31); MCHC 31.7 g/dL (33-37); MCV 73.6 FL (81-99); MPV 9.9 FL (7.4-10.4); RBC 3.52 XMIL (4.2-5.4)
[2016-11-10 06:47] LABS: CALCIUM 8.7 mg/dL (8.8-10.2); MAGNESIUM 2.5 mg/dL (1.5-2.7); POTASSIUM 3.6 mmol/L (3.5-5.1)
[2016-11-10 06:50] LABS: ALBUMIN 3.4 g/dL (3.5-5.0); ALKALINE PHOSPHATASE 77 U/L (32-104); DIRECT BILIRUBIN < 0.20 mg/dL (0.00-0.20); GOT 27 U/L (10-30); GPT 25 U/L (10-36); TOTAL BILIRUBIN 0.27 mg/dL (0.20-1.00); TOTAL PROTEIN 6.9 g/dL (6.3-8.3)
[2016-11-10] MEDS: DUONEB (A & A) INH PRN (07:12)
[2016-11-10] MEDS: LASIX IV SCH (10:09)
[2016-11-10] MEDS: ASPIRIN EC PO SCH (10:09)
[2016-11-10] MEDS: FOLIC ACID PO SCH (10:09)
[2016-11-10] MEDS: CARDIZEM CD PO SCH (10:09)
[2016-11-10] MEDS: MARINOL PO SCH (10:10)
[2016-11-10] MEDS: CRESTOR PO SCH (10:10)
[2016-11-10] MEDS: THERA M PLUS PO SCH (10:10)
[2016-11-10] MEDS: NEURONTIN PO SCH ×2 (10:10→20:25)
[2016-11-10] MEDS: AMARYL PO SCH ×2 (10:10→20:25)
[2016-11-10] MEDS: SODIUM CHLORIDE 0.9% INJ SCH ×2 (10:10→20:25)
[2016-11-10] MEDS: PROTONIX IV SCH ×2 (10:10→20:25)
[2016-11-10] MEDS: MIRALAX PO SCH (10:11)
[2016-11-10] MEDS: DILAUDID IV PRN ×2 (11:10→20:26)
[2016-11-10] MEDS: LOVENOX SUBQ SCH (13:02)
[2016-11-10] MEDS: DURAGESIC 12 MICROGM/HR PATCH TD SCH (13:08)
--- NOTE | 2016-11-10 13:46 | Diag Imaging Result Doc PS360 ---
EXAM: ABDOMEN FLAT/UPRIGHT HISTORY: sbo TECHNIQUE: COMPARISON: 11/08/2016. FINDINGS: There are dilated small bowel loops with air-fluid levels. Surgical clips are found in the mid right abdomen and there is a catheter in the mid left abdomen. No organomegaly. Mild to moderate degenerative spine changes. IMPRESSION: Persistent small bowel obstruction Electronically signed by Markel Matta 11/10/2016 1:44 PM
--- NOTE | 2016-11-10 14:47 | PROGRESS NOTE ---
DATE: 11/10/2016 SUBJECTIVE: The patient is still having abdominal complaints, nausea. OBJECTIVE: Vital Signs: Blood pressure 117/44, heart rate of 97, respiratory rate of 14, temperature 99 degrees, satting 96% on 3 L. Cardiovascular: Regular rate and rhythm. Pulmonary: Bilateral breath sounds. Clear to auscultation. GI: Soft, nontender, nondistended. Bowel sounds are positive. LABORATORY DATA: Hemoglobin and hematocrit 8 and 25, platelets 239, white count 7.9. Chemistries: BUN and creatinine are 50 and 1.6, which is pretty much unchanged from yesterday. Her sugars have been stable. Her liver-associated enzymes are really unremarkable. PROBLEM LIST: 1. Small-bowel obstruction. She is status post percutaneous endoscopic gastrostomy. Gastroenterology is following. Dr. Corado has seen her in the past. I am just going to get him to look at her as well. 2. Stage IV ovarian cancer. Dr. Albert is following. 3. Bilateral pleural effusions. We will continue diuresis. She is status post thoracenteses and seems to be doing okay. 4. Acute kidney injury. We will continue intravenous fluids and monitor. 5. Diabetes appears to be stable. DISPOSITION: Again I am not quite sure what her alf goal is. She is already on home intravenous total parenteral nutrition, but I am not sure if she can go home with that drain. It is a little unclear to me what else we can do, but I am assuming that will need to be somewhat resolved before she goes home and continue to follow closely. cc: Fredo Cervantes MD
--- NOTE | 2016-11-10 16:34 | CONSULTATION ---
DATE OF CONSULTATION: 11/10/2016 REASON FOR CONSULTATION: Small bowel obstruction. HISTORY OF PRESENT ILLNESS: This is a 76-year-old female, known to me who has been admitted now for the last couple of weeks with pneumonia and bowel obstruction. She has bilateral pleural effusions. She has undergone thoracentesis with cytology confirming adenocarcinoma. Her imaging suggests worsening omental caking and now developing small bowel obstruction. This appears to be persisting. She has had a PEG tube placed for decompression of her stomach. She is on TPN. She does drink some clear liquids but the PEG tube is on continuous drainage. Her imaging suggests persisting obstruction. At this time today she denies significant abdominal pain or vomiting. She says she passes a little gas occasionally. She has not had a bowel movement in a while. PAST MEDICAL HISTORY: Diabetes, hypertension, hyperlipidemia, ovarian cancer with peritoneal carcinomatosis. PAST SURGICAL HISTORY: Tubal ligation, cholecystectomy, hiatal hernia repair, hysterectomy, appendectomy, umbilical hernia repair. FAMILY HISTORY: Positive for diabetes, hypertension and heart disease. SOCIAL HISTORY: Negative for tobacco, alcohol, or illicit drug use. ALLERGIES: Clarithromycin, doxycycline, hydrocodone. CURRENT MEDICATIONS: Albumin, aspirin, Dulcolax, Cardizem, Marinol, Lovenox, TPN, Fentanyl patch, folic acid, Lasix, gabapentin, Amaryl, milk of magnesia, Zofran and Protonix. REVIEW OF SYSTEMS: General: She is weak and tired. GI: She feels distended with mild abdominal discomfort. No severe pain. She has some constipation or obstipation. Respiratory: She has some shortness of breath. Otherwise, 10 systems reviewed and negative except as noted above. PHYSICAL EXAMINATION: Vital Signs: Temperature 99 degrees, pulse 97, blood pressure 117/44, O2 saturation 96%. General: She is a weak appearing. She is alert and oriented x3. HEENT: Normocephalic atraumatic. Extraocular muscles intact. Pupils equal, round, reactive to light. Sclerae anicteric. Mucous membranes are somewhat dry. Neck: Supple. No thyromegaly. CV: Tachycardic and regular. Respiratory: Bilateral coarse breath sounds. GI: Protuberant and somewhat firm. Minimal tenderness. No rebound or hernia. Extremities: No clubbing, cyanosis, or edema. Musculoskeletal: She moves all extremities equally but weakly. Skin: Warm and dry. No rash. LABORATORY: White blood cell count 7.9, hemoglobin 8.2, platelet count 239,000. BUN 50, creatinine 1.6. Sodium 143, potassium 3.6. IMAGING: Plain abdominal x-ray today shows dilated small bowel loops with air-fluid levels consistent with small-bowel obstruction. A CT scan on 10/30/2016 shows moderate bilateral pleural effusions and compressive atelectasis with extensive omental caking and a small amount of ascites and development of distended stomach and small bowel. ASSESSMENT AND PLAN: 76-year-old female with likely ovarian cancer and peritoneal carcinomatosis. She has pleural effusions, pneumonia and a persistent small bowel obstruction. It is a difficult situation. I think an operation is risky due to the probable overwhelming carcinomatosis. I need to discuss this with her gynecologic oncologist Dr. Salgado as any operative intervention that is entertained might need to include Header Up/Onc for surgical site reduction. cc: Alex Corado MD
--- NOTE | 2016-11-10 16:43 | PROGRESS NOTE ---
DATE: 11/10/2016 I have spoken with her gynecologic oncologist Dr. Angela and discussed her situation. He and I are in agreement that an operation at this time is very unlikely to be successful and highly risky. Her best chance is nutritional support with TPN, gastric decompression with her PEG tube, and resume her chemotherapy when she is stable to try to reduce this tumor burden in her peritoneal cavity. This may help relieve the obstruction, and Dr. Angela plans to reassess her in the future for her response and whether she can be a candidate for a surgical cyto- reduction, but at this time that is not an option. cc: Alex Corado MD MTDD
[2016-11-10] MEDS: LIPOSYN 20% 250 ML IV SCH (17:23)
[2016-11-10] MEDS ORDERED: TPN ELECTROLYTES 20 ML, MAGNESIUM SULFATE 4 MEQ, POTASSIUM CHLORIDE 20 MEQ, SODIUM PHOS... IV SCH ×9 (18:00)
[2016-11-10] MEDS: DULCOLAX PR SCH (20:25)
[2016-11-11] MEDS: CARAFATE LIQUID PO SCH ×4 (05:01→20:49)
[2016-11-11] MEDS: HUMALOG SUBQ SCH ×5 (05:02→20:50)
[2016-11-11] MEDS: ALBUMIN 25% IV SCH ×2 (05:03→16:44)
[2016-11-11 06:34] LABS: CALCIUM 8.7 mg/dL (8.8-10.2); MAGNESIUM 2.4 mg/dL (1.5-2.7); POTASSIUM 3.2 mmol/L (3.5-5.1)
[2016-11-11] MEDS: DILAUDID IV PRN ×3 (07:58→22:04)
[2016-11-11] MEDS: AMARYL PO SCH ×2 (10:04→20:49)
[2016-11-11] MEDS: CARDIZEM CD PO SCH (10:04)
[2016-11-11] MEDS: THERA M PLUS PO SCH (10:04)
[2016-11-11] MEDS: NEURONTIN PO SCH ×2 (10:05→20:49)
[2016-11-11] MEDS: FOLIC ACID PO SCH (10:05)
[2016-11-11] MEDS: MARINOL PO SCH (10:05)
[2016-11-11] MEDS: ASPIRIN EC PO SCH (10:05)
[2016-11-11] MEDS: SODIUM CHLORIDE 0.9% INJ SCH ×2 (10:06→20:50)
[2016-11-11] MEDS: MIRALAX PO SCH (10:06)
[2016-11-11] MEDS: LASIX IV SCH (10:06)
[2016-11-11] MEDS: PROTONIX IV SCH ×2 (10:06→20:50)
--- NOTE | 2016-11-11 12:13 | PROGRESS NOTE ---
DATE: 11/11/2016 SUBJECTIVE: Today Ms. Bolton refers to be doing relatively the same. No major changes. Continues to be extremely weak. OBJECTIVE: Vital signs: Blood pressure is 116/42, pulse of 99, respirations 18, temp is 98.8 degrees. Patient is saturating 93% on 3 L of oxygen. General: Ms. Bolton is a 76-year-old female. She is in bed. She looks wasted and chronically ill. HEENT: Mucosa is pink and moist. Anicteric. Acyanotic. Neck: Supple. Chest: Air entry is bilaterally reduced. Cardiovascular: Regular rate and rhythm. Abdomen: Distended. Mildly tender to the right lower abdomen. There is some palpable irregular mass. There is also a PEG tube in place. Extremities: No pedal edema. 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 No focal neurological deficit. LABORATORY DATA: WBC 7.97, hemoglobin is 8.2, platelet count of 239,000. Chemistries reviewed. Sodium is 142, potassium is 3.2, chloride is 101, bicarb is 28, BUN is 44, creatinine is 1.4. ASSESSMENT: 1. Small bowel obstruction secondary to underlying ovarian malignancy with peritoneal caking. Patient is status post PEG tube for decompression purposes. Has been evaluated by Dr. Corado, the surgeon, who recommends the patient is not at the surgical candidate. 2. Stage IV ovarian cancer. Being followed by Dr. Albert. 3. Bilateral pleural effusion. The patient is status post thoracentesis. Fluid analysis is consistent with malignancy. 4. Acute kidney injury. 5. Diabetes mellitus, stable. 6. Protein calorie malnutrition. 7. Poor prognosis. 8. Nutritional needs. Patient is currently on TPN. PLAN: We are going to continue with the PEG tube, GI decompression. We will also be continuing with the current TPN and will make other arrangements for the patient's discharge within a day or two, to follow up on an outpatient basis with the oncologist. I think from a medical standpoint the patient continues to be extremely weak with poor performance status and poor prognosis and I think the patient qualifies actually to be in a hospice program. However, the family is still very hopeful for miracles. cc: Brayden Ruiz MD
--- NOTE | 2016-11-11 13:14 | PROGRESS NOTE ---
DATE: 11/11/2016 SUBJECTIVE FINDINGS: The patient is doing well overall today. She is sitting up on the side of the hospital bed talking with her daughter. The patient has no acute complaints. OBJECTIVE FINDINGS: Vital signs: Temperature 98.8 degrees, heart rate 110, respirations 18, blood pressure 116/42, O2 saturation 95% on 3 L nasal cannula. Laboratory: White blood cells 7.97, hemoglobin 8.2, and platelet count was 239,000 yesterday on 11/10/2016. Sodium 143, potassium 3.2, chloride 101, CO2 28, BUN 44, creatinine 1.4, and glucose 176 on 11/11/2016. PHYSICAL EXAMINATION: CV: S1, S2 heard. Regular rate and rhythm. No murmurs, gallops, rubs appreciated. Respiratory: Chest is clear to auscultation bilaterally. She does have decreased breath sounds bilateral bases. Gastrointestinal: Abdomen is soft and nondistended. Hypoactive bowel sounds. Nontender. Musculoskeletal: No bony abnormalities. Extremities: The patient has some trace bilateral edema. Neurologic: Patient is alert and oriented x3 with no focal motor deficits. ASSESSMENT AND PLAN: 1. Metastatic stage IV ovarian carcinoma. The goal would be for the patient to proceed with chemotherapy when possible. We are okay with the patient going home and following up as an outpatient for chemotherapy. The patient's main need is to get the chemotherapy as this will help the most with her current symptoms. The patient is status post her 1st treatment of carboplatin-Taxol. She only received cycle 1, day 1. 2. Small bowel obstruction. Patient has PEG in for decompression. She also is receiving TPN. All of this has been arranged to be set up at her home. She will need to continue. Will continue to follow the patient's nutrition status as an outpatient. 3. Pneumonia. Resolved. 4. Bilateral pleural effusions. She is status post thoracentesis. Overall stable. 5. Acute kidney injury. Improving. 6. Disposition. Again, it is felt that the patient would do best at home. She has peritoneal caking that will best be addressed with further chemotherapy when able. Patient and family are comfortable with her going home when ready. Patient can be followed as an outpatient. Dictated by JEANNIE Samano for Dahlia Albert MD cc: Dahlia Albert MD
[2016-11-11] MEDS: LOVENOX SUBQ SCH (15:11)
[2016-11-11] MEDS: LIPOSYN 20% 250 ML IV SCH (18:03)
[2016-11-11] MEDS: TPN ELECTROLYTES 20 ML, MAGNESIUM SULFATE 4 MEQ, POTASSIUM CHLORIDE 25 MEQ, SODIUM PHOS... IV SCH ×9 (18:37)
[2016-11-11] MEDS: DULCOLAX PR SCH (20:49)
[2016-11-12] MEDS: HUMALOG SUBQ SCH ×6 (02:06→20:52)
[2016-11-12] MEDS: ALBUMIN 25% IV SCH ×2 (05:44→17:30)
[2016-11-12] MEDS: CARAFATE LIQUID PO SCH ×3 (05:44→14:07)
[2016-11-12] MEDS: DILAUDID IV PRN ×2 (05:57→18:13)
[2016-11-12 07:43] LABS: CALCIUM 8.7 mg/dL (8.8-10.2); MAGNESIUM 2.3 mg/dL (1.5-2.7); POTASSIUM 3.3 mmol/L (3.5-5.1)
[2016-11-12] MEDS: PROTONIX IV SCH (09:28)
[2016-11-12] MEDS: SODIUM CHLORIDE 0.9% INJ SCH (09:28)
[2016-11-12] MEDS: POTASSIUM CHLORIDE 20 MEQ/SWI 20 MEQ/100 ML IVPB IV SCH ×2 (09:28→11:23)
[2016-11-12] MEDS: ASPIRIN EC PO SCH (09:29)
[2016-11-12] MEDS: MIRALAX PO SCH (09:29)
[2016-11-12] MEDS: CARDIZEM CD PO SCH (09:29)
[2016-11-12] MEDS: NEURONTIN PO SCH (09:29)
[2016-11-12] MEDS: FOLIC ACID PO SCH (09:29)
[2016-11-12] MEDS: THERA M PLUS PO SCH (09:29)
[2016-11-12] MEDS: CRESTOR PO SCH (09:29)
[2016-11-12] MEDS: AMARYL PO SCH (09:29)
[2016-11-12] MEDS: LASIX IV SCH (09:29)
[2016-11-12] MEDS ORDERED: INSULIN PEN NEEDLES ONE ×2 (09:36→09:45)
[2016-11-12] MEDS: LANTUS SUBQ SCH (09:40)
[2016-11-12] MEDS: MARINOL PO SCH (09:41)
--- NOTE | 2016-11-12 13:54 | PROGRESS NOTE ---
DATE: 11/12/2016 Today Ms. Bolton referred to be doing the same. She was sitting up and eating some ice with her son. OBJECTIVE: Vital signs: Blood pressure is 136/54, pulse 107, respirations 18, temperature 97.9 degrees. General: Ms. Bolton is a 76-year-old female. She was sitting up in the bed. She looks chronically ill. HEENT: Mucosa is pink and moist. Anicteric. Acyanotic. Neck: Supple. Positive for JVD. Chest: Air entry is bilaterally reduced with some crepitations bilateral. Cardiovascular: Regular rate and rhythm. She did not appreciate any murmurs. Abdomen: Abdomen is soft, distended. There is some irregular mass palpable mainly in the right lower quadrant. There is a PEG tube in place. Extremities: No pedal edema. CT TECHNOLOGIST: Patient is alert and oriented x4. LABORATORY DATA: Chemistry: Sodium is 144, potassium is 3.3, chloride is 101, bicarb is 28, creatinine is 1.3. BUN is 38. ASSESSMENT: 1. Small-bowel obstruction secondary to underlying ovarian malignancy with peritoneal caking. Patient is status post a PEG tube for GI decompression. She has been evaluated by Surgery and has been evaluated and nonsurgical candidate. 2. Stage IV ovarian cancer. Poor prognosis. 3. Bilateral pleural effusion. The patient is status post thoracentesis. Fluid analysis is consistent with malignancy. 4. Acute kidney injury. Noted. 5. Diabetes mellitus. 6. Protein calorie malnutrition. 7. Nutritional needs. Patient continues to be on TPN. So my understanding is that Ms. Bolton has been arranged for Home Health. Also to continue with her IV TPN. The patient is pretty much almost ready for discharge but she wants her daughter from [facility] to be here before she gets discharged. She was some somehow a little taken aback and surprised when I told her she will be going home either today or tomorrow. cc: Brayden Ruiz MD 3: 30pm I have been told that patient has a minimal blood in her Peg Tube draining Will order H and H and follow. I dont think patient is actively bleeding. I did not see any blood in the tube myself. I still think she is a very poor candidate for any intervention. She is Hospice appropriate but she and the family are not there yet. Will continue to monitor MTDD
[2016-11-12] MEDS ORDERED: DIPRIVAN 1% 0 MG/0 ML BOTTLE ONE (16:02)
[2016-11-12] MEDS ORDERED: FENTANYL ONE (16:02)
[2016-11-12 17:08] LABS: HEMATOCRIT 25.8 % (37.0-47.0); HEMOGLOBIN 8.3 g/dL (12.0-16.0)
[2016-11-12] MEDS: LIPOSYN 20% 250 ML IV SCH (18:12)
[2016-11-12] MEDS: TPN ELECTROLYTES 20 ML, MAGNESIUM SULFATE 4 MEQ, POTASSIUM CHLORIDE 25 MEQ, SODIUM PHOS... IV SCH ×9 (18:12)
[2016-11-12] MEDS ORDERED: PROTONIX 80 MG in NS 80 ML IV ONE (18:15)
[2016-11-12] MEDS ORDERED: LASIX IV ONE (18:57)
[2016-11-12 18:58] LABS: ALLEN TEST YES; BE 7.5 mmoll (-3.0-3.0); BLOOD TYPE ARTERIAL; DRAW SITE R RADIAL; PCO2(98.6) 39 mmHg (35-45); PO2(98.6) 56 mmHg (60-100); SAMPLE BLOOD; pH(98.6) 7.51 (7.35-7.45)
[2016-11-12 19:03] LABS: MODALITY CANNULA
[2016-11-12] MEDS: PROTONIX 80 MG in NS 80 ML IV SCH (19:53)
--- NOTE | 2016-11-12 20:00 | PROGRESS NOTE ---
DATE: 11/12/2016 SUBJECTIVE: I was notified by the nurses today that the patient has blood in her gastrostomy tube. Clinically, the patient complains of mild shortness of breath and just a feeling of being uncomfortable. She denies nausea with vomiting but reports indigestion and feels as if there is a "gas bubble in her stomach." She denies flatus and defecation. Her last bowel movement was on 11/05/2016. OBJECTIVE: Constitutional: On examination, she is in mild respiratory distress. Vital Signs: Her blood pressure is 120/51, pulse 118, respirations 28-32, temp is 99.2 degrees with T-max of 99.7 degrees. HEENT: Remarkable for intermittent pursed-lip breathing. Pulmonary examination: She has marked decreased breath sounds in the bases bilaterally with rales in the posterior upper chest. Anteriorly, she has scattered rales bilaterally. Cardiovascular Examination: She has a resting tachycardia with no gallops or murmurs. Abdominal Examination: Remarkable in that she has no bowel sounds. The abdomen is firm and distended. The PEG tube has good rotation with normal skin color around the insertion site. However, there is approximately 5-10 mL of bright red blood in the tube. It clears with flushing and is not persistent. Extremities: Extremities bilaterally are negative for cyanosis, clubbing, edema. OBJECTIVE DATA: Hemoglobin of 8.2 with hematocrit of 25.9. She has a white count of 7.97 and 239,000 platelets. At 14:00, her repeat hemoglobin was 8.3 with hematocrit of 25.8. Sodium is 142, potassium 3.3, chloride 101, CO2 28, BUN 38, creatinine 1.3 with glucose 187. Calcium is 8.7, phosphorus 2.8, magnesium 2.3. Portable chest x-ray was obtained and is remarkable for a marked increase in her bilateral pleural effusions with rapid reaccumulation compared to her chest x-ray on 11/09/2016. Her blood gas is pending. IMPRESSION: 1. Dyspnea. 2. Pleural effusion. 3. Gastrointestinal bleed. 4. Bowel obstruction secondary to metastatic ovarian cancer. 5. Anemia. 6. Hypokalemia. RECOMMENDATIONS: 1. The patient's blood gas is currently pending. 2. Her oxygen saturation has remained 99-100% despite her dyspnea. I will administer a single dose of Lasix 40 mg IV x1 now. 3. For the GI bleeding, I recommend transitioning back to Protonix drip. Orders have been written. 4. Please monitor serial hemoglobins and hematocrit. 5. In light of the patient's rapid reaccumulation of her pleural effusion, GI bleeding and failure to thrive, I suspect that she is not responding to treatment for her malignancy. Her clinical progress is extremely worrisome. I spoke with Dr. Dahlia Albert regarding her care as we may need to discuss hospice care for this patient. Dr. Albert plans to consider a single dose of chemotherapy while she is inpatient to see if she will have clinical improvement. 6. Please check a CMP, CBC and a PT/INR in the morning. 7. Additional recommendations to follow based on her clinical course. cc: MD Brayden Daniel MD Heather Shah, MD
--- NOTE | 2016-11-12 20:19 | Diag Imaging Result Doc PS360 ---
EXAM: CHEST-PORTABLE - 11/12/2016 HISTORY: shortness of breath TECHNIQUE: Portable chest 1820 COMPARISON: 11/09/2016 FINDINGS: PICC line remains in place with its tip at or near the cavoatrial junction. There are right basilar airspace disease and small right pleural effusion which appear grossly stable. There is a moderate left pleural effusion which has increased mildly. There is no pneumothorax identified. IMPRESSION: Grossly stable right basilar airspace disease and small right pleural effusion. Moderate left pleural effusion which has increased mildly. Electronically signed by Ron Harley 11/12/2016 8:17 PM
[2016-11-12] MEDS: DULCOLAX PR SCH (20:57)
[2016-11-13] MEDS: DILAUDID IV PRN ×5 (01:01→21:18)
[2016-11-13] MEDS: HUMALOG SUBQ SCH ×6 (01:06→21:03)
[2016-11-13 04:26] LABS: ALLEN TEST YES; BE 8.5 mmoll (-3.0-3.0); BLOOD TYPE ARTERIAL; DRAW SITE R RADIAL; METHB 0.1 % (0.0-1.5); PCO2(98.6) 38 mmHg (35-45); PO2(98.6) 74 mmHg (60-100); SAMPLE BLOOD; SAO2 99.9 % (95.0-100.0); THB 11.8 g/dL (11.5-17.4); pH(98.6) 7.53 (7.35-7.45)
[2016-11-13 04:27] LABS: MODALITY BI PAP
[2016-11-13 05:05] LABS: INR 1.2; PROTIME 12.7 Seconds (9.2-11.7)
[2016-11-13 05:08] LABS: BASO% 0.2 % (0.0-0.8); EOS# 0.14 X1000 (0.0-0.7); EOS% 1.5 % (0.0-10.0); HEMATOCRIT 23.6 % (37.0-47.0); HEMOGLOBIN 7.5 g/dL (12.0-16.0); IMM GRAN# 0.03 X1000 (0.0-0.04); IMM GRAN% 0.3 % (0.0-0.5); LYMPH# 1.31 X1000 (1.2-3.4); MANUAL DIFF NEEDED? NO; MCH 22.7 PG (27-31); MCHC 31.8 g/dL (33-37); MCV 71.5 FL (81-99); MONO% 7.5 % (1.7-9.3); MPV 11.4 FL (7.4-10.4); NEUT% 76.5 % (42.2-75.2); PLT 202 X1000 (130-400)
[2016-11-13 05:14] LABS: MAGNESIUM 2.1 mg/dL (1.5-2.7)
--- NOTE | 2016-11-13 05:20 | EKG Report ---
Test Performed on : 11/12/2016 8:20:35 PM Test Reason : Blood Pressure : / mmHG Vent. Rate : 132 BPM Atrial Rate : 132 BPM P-R Int : 116 ms QRS Dur : 070 ms QT Int : 300 ms P-R-T Axes : 018 073 048 degrees QTc Int : 444 ms Sinus tachycardia. Nonspecific ST abnormality Abnormal ECG When compared with ECG of 23-OCT-2016 02:34, No significant change was found Confirmed by Leighann WRIGHT, Tom Spears ([id number]) on 11/13/2016 7:58:32 AM
[2016-11-13 05:22] LABS: ALBUMIN 3.6 g/dL (3.5-5.0); CALCIUM 8.7 mg/dL (8.8-10.2); POTASSIUM 3.6 mmol/L (3.5-5.1); TOTAL BILIRUBIN 0.69 mg/dL (0.20-1.00); TOTAL PROTEIN 7.3 g/dL (6.3-8.3)
[2016-11-13] MEDS ORDERED: BLISTEX MEDICATED BERRY LIP BALM TOP PRN (05:46)
[2016-11-13] MEDS ORDERED: NS 250 ML IV ONE (05:50)
[2016-11-13] MEDS ORDERED: TYLENOL PO ONE (06:21)
[2016-11-13] MEDS: PROTONIX 80 MG in NS 80 ML IV SCH ×2 (06:30→16:43)
[2016-11-13] MEDS ORDERED: TYLENOL PR ONE (06:37)
[2016-11-13] MEDS: DUONEB (A & A) INH PRN ×3 (07:58→15:28)
[2016-11-13] MEDS ORDERED: DIAMOX IV ONE (08:22)
[2016-11-13] MEDS ORDERED: STERILE WATER INJ. ONE ×2 (08:30→10:57)
[2016-11-13] MEDS: LASIX IV SCH (09:20)
--- NOTE | 2016-11-13 10:46 | PROGRESS NOTE ---
DATE: 11/13/2016 SUBJECTIVE: Today, Ms. Bolton continues to be tachypneic and critically sick. I had to re- evaluate her last night because of her respiratory status and we decided to move her to the ICU for more critical observation. OBJECTIVE: Vital Signs: This morning, blood pressure is 139/70, pulse is 60, respirations 114, and temperature is 98.7 degrees. General: Ms. Bolton is a 76-year-old female. She is in bed, looks chronically sick. HEENT: Mucosa is pink. Anicteric and acyanotic. Neck: Supple. Positive JVD. Chest: Air entry is bilaterally reduced with bilateral crepitations. Cardiovascular: Regular rate and rhythm. Abdomen: Soft, tender. There is an irregular mass, more palpable in the right lower quadrant. The PEG tube is in place. It is clamped. Extremities: No pedal edema. Central Nervous System: Patient is alert and oriented, does not have any focal neurological deficit and follows commands. LABORATORY DATA: WBC is 9.37, hemoglobin is 7.5, and platelet count is 202, 000. pH 7.53, pCO2 of 38, PaO2 of 74. Sodium is 147, potassium is 3.6, chloride is 103, and bicarbonate is 29. ASSESSMENT: 1. Small-bowel obstruction secondary to underlying ovarian cancer with peritoneal caking. Patient is status post PEG tube for gastrointestinal decompression. 2. Stage IV ovarian cancer with poor prognosis. 3. Respiratory distress secondary to malignant pleural effusions. The patient had a thoracentesis done early on, on her admission. I think she is going to be needing another thoracentesis. We will do a repeat chest x-ray this morning to see where we are. Yesterday, there was 1 chest x-ray done late in the evening, which showed moderate left pleural effusion which has increased mildly. 4. Acute kidney injury noted. 5. Mixed alkalosis, I think partly from the diuretic defect. We will give the patient a dose of Diamox for both diuretic and also to correct the metabolic alkalosis. 6. Diabetes mellitus, controlled. 7. Protein calorie malnutrition. Patient is on TPN. So, in general, I think Ms. Bolton's condition is deteriorating. She needs TPN to help with her nutritional status; however, this also seems to be worsening her pleural effusions. We are going to repeat the chest x-ray. If the fluid continues to be worsening, we will ask Interventional Radiology to do a thoracentesis. I think this is going to be a reoccurring cycle, so down the line we need to plan for possible pigtail catheter being left there for intermittent draining if the family wants to continue that route. I also encouraged them to sustain discussions with the cnc machine setter/oncologist to see if at all the patient would benefit from any chemotherapy, since at this point we do not have anything very viable to offer her in the hospital except taking care of complications of the underlying disease, so I am not quite sure if chemotherapy would be able to reduce the burden of the underlying disease and make her feel a little better so we can get her discharged. In general, I think Ms. Bolton is a very poor candidate for anything. She definitely is hospice appropriate, but the family wants to pursue therapy, so I will defer to the oncologist on board to review the options that they have. cc: Brayden Ruiz MD Critical time spent 45minutes. VIRID
[2016-11-13] MEDS: LANTUS SUBQ SCH (10:48)
--- NOTE | 2016-11-13 11:26 | Diag Imaging Result Doc PS360 ---
EXAM: CHEST-PORTABLE INDICATION: dyspnea TECHNIQUE: One view COMPARISON: 11/12/2016 FINDINGS: The right PICC line is stable. Bilateral pleural effusions, largest on the left, are grossly stable. There is adjacent bibasilar atelectasis and/or infiltrate. This is stable. No new consolidations are appreciated. Cardiac silhouette is stable. IMPRESSION: Stable chest. Electronically signed by Walter Pelayo 11/13/2016 11:23 AM
--- NOTE | 2016-11-13 11:50 | PROGRESS NOTE ---
DATE: 11/13/2016 PRIMARY HOSPITALIST: Dr. Brayden Ruiz M.D. PRIMARY CARE PROVIDER: Dr. Dahlia Albert M.D. SUBJECTIVE: General: The patient remains tachypneic with significant shortness of breath at rest. From a GI perspective, she notes increased abdominal tenderness and distention today. She has had her PEG tube clamped overnight, so it is unclear if she is continuing to bleed. However, her hemoglobin has dropped overnight, consistent with the intermittent bleeding in the last 24 hours. Her only complaint is that she feels thirsty and dry. On examination, she is notably tachypneic and occasionally gasps for air. However, within a few minutes of taking deep breaths, she is able to calm herself down. It is unclear how much of the tachypnea is anxiety versus dyspnea secondary to the pulmonary edema and effusions found on chest x-ray. Vital Signs: Her blood pressure is 130/81, respiratory rate 28, pulse of 124, and temperature is 99 degrees. HEENT: Notable for the absence of jaundice. Her oropharyngeal mucosal membranes are dry. Pulmonary: She has scattered rales with markedly decreased breath sounds in the posterior aspect bilaterally. She remains tachypneic. Cardiovascular: She has a resting tachycardia with a regular rhythm. Abdomen: Her abdominal examination hypoactive bowel sounds. The abdomen is firm and distended due to tumor burden. She reports new left lower quadrant and left upper quadrant tenderness, but there is no rebound or guarding. Extremities: Bilaterally are negative for cyanosis, clubbing, or edema. OBJECTIVE DATA: Reveals a hemoglobin of 7.5 with hematocrit of 23.6, which is a drop of almost 1 g overnight. Her white count is 9.37. She has 202,000 platelets. Her PT is 12.7 with an INR of 1.2. On blood gas, she has a pH of 7.53, pCO2 of 38, and PO2 of 74 on 40% BiPAP. Sodium is 147, potassium 3.6, chloride 103, CO2 of 29, BUN 38, creatinine 1.3, with a glucose of 83. Calcium is 8.7, phosphorus 3.3, magnesium 2.1, total bilirubin 0.69. In addition, her AST is 53 and ALT is 63, which is an interval increase. Her alkaline phosphatase is 73 with a total protein of 7.3, and albumin of 3.6. RECOMMENDATIONS: 1. The patient appears to have ongoing gastrointestinal blood loss. Please continue the Protonix drip. 2. I will resume her Carafate, which should be given orally to allow for it to coat her esophagus with known reflux esophagitis and her stomach with severe erosive gastritis. 3. Please continue low intermittent suction for her gastrostomy tube, as this has been beneficial in reducing her nausea with vomiting and her abdominal pain. 4. I agree with the transfusion as you are currently doing. 5. We await home assessment and evaluation by Dr. Dahlia Albert regarding long- term management. cc: MD Dahlia Daniel MD Raphael K. Quansah, MD MTDD
--- NOTE | 2016-11-13 12:45 | PROGRESS NOTE ---
DATE: 11/13/2016 SUBJECTIVE: Ms. Bolton is now in the ICU. She appears comfortable. She has family at bedside. She is in no acute distress at this time. OBJECTIVE: Vital Signs: Temperature 98.8 degrees, heart rate 130, respirations 32, blood pressure 143/78, O2 saturation 95% on 3 L nasal cannula. LABS: White blood cells 9.37, hemoglobin 7.5, hematocrit 23.6, platelets 202,000. Sodium 147 potassium 3.6, chloride 103, CO2 of 29, BUN 30, creatinine 1.3, glucose 83. PHYSICAL EXAM: Tachycardia with regular rhythm. Respiratory: Lungs are essentially clear to auscultation bilaterally anteriorly. She does have some decreased breath sounds with some mild rales towards the bases. Gastrointestinal: Abdomen is distended and slightly firm. Nontender. Positive bowel sounds. Musculoskeletal: No bony abnormalities. Extremities: Trace edema with the left lower extremity having more edema than the right. Bilateral upper extremities without edema. ASSESSMENT AND PLAN: 1. Metastatic ovarian carcinoma. The patient has declined further in regards to her performance status and her hospital course has been rather complicated. The patient is now in the ICU after experiencing tachypnea with bleeding from her PEG tube. She continues to have bilateral pleural effusions, with a large one on the left. She also continues to have infiltrates and atelectasis on her chest x-rays. At this point, it is unlikely that we will be able to do any further chemotherapy for this patient due to her overall status. I briefly discussed with the patient and her family hospice. Dr. Albert is scheduled to come see the patient later today for further recommendations. 2. Small bowel obstruction. The patient does have a PEG tube in place for decompression. Management per Dr. Parrish. 3. Pneumonia with pleural effusions. Overall stable. Continue current management. She is now on O2. She is in the ICU for close monitoring. 4. Nutritional status. Patient continues to receive total parenteral nutrition. 5. Pain. Currently well controlled with fentanyl. 6. Anemia. This has recently worsened. She was having bleeding from her tube as previously mentioned. She is scheduled to get a unit of packed red blood cells today. Continue to monitor labs and continue to transfuse p.r.n. 7. Disposition: Again, we will start the conversation in regards to hospice, further discussion with Dr. Albert. Dictated by JEANNIE Samano for Dahlia Albert MD cc: Dahlia Albert MD
--- NOTE | 2016-11-13 14:01 | Diag Imaging Result Doc PS360 ---
CHEST-2 VIEWS - 11/13/2016 INDICATION: POST LEFT THORA TECHNIQUE: COMPARISON: Earlier 11/13/2016 FINDINGS: There has been drainage of the moderately large left pleural effusion. The left lung is now relatively well expanded. No pneumothorax. Stable right PICC line. Stable small to moderate right pleural effusion. IMPRESSION: Successful drainage of the left pleural effusion with no complication. Electronically signed by Mj Shaffer 11/13/2016 1:59 PM
--- NOTE | 2016-11-13 14:03 | Diag Imaging Result Doc PS360 ---
THORACENTESIS W/IMAGE GUIDANCE - 11/13/2016 INDICATION: left Pleural Effusion/ SOB/ TECHNIQUE: The risks and benefits of the procedure were discussed with the patient. All questions were answered. Written and verbal informed consent was obtained. Overlying skin was prepped and draped in sterile fashion. Anesthesia was achieved with injection of 10 cc of 1% lidocaine. COMPARISON: Chest x-ray earlier 11/13/2016 FINDINGS: The moderately large left pleural effusion was successfully drained. 1.25 L was removed. The patient reported no symptoms from the procedure. IMPRESSION: Successful and uncomplicated ultrasound-guided left thoracentesis. Electronically signed by Mj Shaffer 11/13/2016 2:01 PM
[2016-11-13] MEDS: CARAFATE LIQUID PO SCH ×3 (14:30→20:01)
[2016-11-13] MEDS: DURAGESIC 12 MICROGM/HR PATCH TD SCH (14:40)
[2016-11-13 14:45] LABS: TOTAL PROT BODY FLUID 4.9 g/dL
[2016-11-13 15:00] LABS: DIFF NEEDED? YES
[2016-11-13 15:02] LABS: SPECIMEN PLEURAL FLUID
[2016-11-13 15:09] LABS: HEMATOCRIT 29.4 % (37.0-47.0); HEMOGLOBIN 9.6 g/dL (12.0-16.0)
[2016-11-13 16:05] LABS: WBC BF 13 /cumm
[2016-11-13 16:15] LABS: MONOS 70 %; POLYS 30 %
[2016-11-13] MEDS: DULCOLAX PR SCH (21:18)
[2016-11-14] MEDS: CARAFATE LIQUID PO SCH ×4 (02:10→20:45)
[2016-11-14] MEDS: HUMALOG SUBQ SCH ×6 (02:14→20:51)
[2016-11-14] MEDS: DILAUDID IV PRN ×4 (02:42→22:30)
[2016-11-14] MEDS: PROTONIX 80 MG in NS 80 ML IV SCH ×3 (03:02→23:58)
[2016-11-14] MEDS: DUONEB (A & A) INH PRN ×2 (07:30→11:05)
[2016-11-14] MEDS: LASIX IV SCH (08:35)
--- NOTE | 2016-11-14 09:30 | Diag Imaging Result Doc PS360 ---
CHEST-PORTABLE - 11/14/2016 INDICATION: dyspnea TECHNIQUE: COMPARISON: 11/13/2016 FINDINGS: Stable right PICC line. There is worsening, with an increasing small left basilar pleural effusion. Stable moderate right pleural effusion. Stable pulmonary vascular congestion. IMPRESSION: Worsening, small to moderate left basilar pleural effusion. Otherwise no change from prior. Electronically signed by Mj Shaffer 11/14/2016 9:28 AM
[2016-11-14] MEDS: LANTUS SUBQ SCH (10:43)
--- NOTE | 2016-11-14 10:49 | PROGRESS NOTE ---
DATE: 11/14/2016 SUBJECTIVE: Today Ms. Bolton referred to be doing a little better. She did have a thoracentesis yesterday; 1.25 L was removed from the left pleural space. OBJECTIVE: Vital signs: Blood pressure is 131/70, pulse of 104, respiration is 21, temperature 99.1 degrees. General exam: Ms. Bolton is a 76-year-old, female. She is in bed. She did not seem to be in any remarkable distress. HEENT: Mucosa is pink and moist. Anicteric. Acyanotic. Neck: Supple. Chest: Air entry is bilaterally reduced. A few bibasilar coarse crepitations. Cardiovascular: Regular rate and rhythm. Abdomen: Soft, mildly tender. There is an irregular mass in the lower abdomen filling almost up to the upper abdomen. SUPERVISOR BEATER ROOM: Patient is awake and alert, follows commands. LABORATORY DATA: WBC is 9.6, hemoglobin is 29.4. Chemistry is reviewed and none for today. RADIOLOGICAL DATA: A repeat chest x-ray this morning shows worsening small to moderate left basilar pleural effusion, otherwise no change from prior. ASSESSMENT: 1. Small-bowel obstruction secondary to underlying ovarian cancer with peritoneal caking. The patient is status post percutaneous endoscopic gastrostomy tube for gastrointestinal decompression. 2. Stage IV ovarian cancer with poor prognosis. 3. Respiratory distress secondary to malignant pleural effusion. Patient has had two left side thoracentesis; last one was done yesterday and 1.25 L was removed. Her breathing is a whole lot better today. 4. Acute kidney injury noted. 5. Diabetes mellitus. 6. Protein calorie malnutrition. We will going to restart the patient on total parenteral nutrition. 7. Overall poor prognosis with poor performance status. GENERAL PLAN: So in general I think Ms. Bolton was evaluated yesterday by the hematology/oncology team. They think she still has very poor performance status, and they would not want to start any chemotherapy now until her performance status has improved a little bit. We are going to start the TPN and my guess is we are going to be running into the same cycle of patient being fluid overload and having a lot of effusions and having to tap her again, but anyway that is what the family wants now. So, we will restart her TPN. If she tolerates that, we will transfer her from the ICU to regular floor tomorrow, hopefully plan her discharge for Wednesday. Bo James spent 45 minutes. cc: MD WILFRIOD Fair
[2016-11-14 14:51] LABS: CALCIUM 8.5 mg/dL (8.8-10.2); MAGNESIUM 2.1 mg/dL (1.5-2.7); POTASSIUM 3.3 mmol/L (3.5-5.1); PREALBUMIN 6.4 mg/dL (20-40)
[2016-11-14] MEDS ORDERED: D10W 1,000 ML IV PRN (15:00)
[2016-11-14] MEDS ORDERED: TPN ELECTROLYTES 20 ML, MAGNESIUM SULFATE 4 MEQ, POTASSIUM CHLORIDE 25 MEQ, SODIUM PHOS... IV SCH ×16 (15:00→16:00)
[2016-11-14] MEDS: LIPOSYN 20% 250 ML IV SCH (16:24)
[2016-11-14] MEDS: DULCOLAX PR SCH (20:45)
[2016-11-15] MEDS: HUMALOG SUBQ SCH ×6 (01:56→20:24)
[2016-11-15] MEDS: CARAFATE LIQUID PO SCH ×4 (02:04→20:07)
[2016-11-15] MEDS: DILAUDID IV PRN ×3 (02:14→20:08)
[2016-11-15 04:43] LABS: ALLEN TEST YES; BE 3.5 mmoll (-3.0-3.0); BLOOD TYPE ARTERIAL; DRAW SITE R RADIAL; O2(CT) 15.4 mL/dL (15.0-23.0); PCO2(98.6) 40 mmHg (35-45); PO2(98.6) 83 mmHg (60-100); SAMPLE BLOOD; SAO2 97.8 % (95.0-100.0); THB 11.4 g/dL (11.5-17.4); pH(98.6) 7.45 (7.35-7.45)
[2016-11-15 04:44] LABS: MODALITY CANNULA
[2016-11-15 05:36] LABS: CALCIUM 8.7 mg/dL (8.8-10.2); MAGNESIUM 2.2 mg/dL (1.5-2.7); POTASSIUM 3.1 mmol/L (3.5-5.1)
[2016-11-15 06:12] LABS: PREALBUMIN 6.7 mg/dL (20-40)
--- NOTE | 2016-11-15 06:32 | Diag Imaging Result Doc PS360 ---
EXAM: CHEST-PORTABLE HISTORY: dyspnea TECHNIQUE: Portable AP COMPARISON: 11/14/2016 FINDINGS: Poor inspiratory effort. No change in the right-sided PICC line. There are moderate sized bilateral pleural effusions with basilar atelectasis. There may be underlying infiltrates as well. The overall appearance is quite similar to prior exam. IMPRESSION: Stable chest Electronically signed by Markel Matta 11/15/2016 6:30 AM
[2016-11-15] MEDS: DUONEB (A & A) INH PRN ×3 (08:19→15:44)
[2016-11-15] MEDS: PROTONIX 80 MG in NS 80 ML IV SCH (08:22)
[2016-11-15] MEDS: LASIX IV SCH (08:22)
[2016-11-15] MEDS: LANTUS SUBQ SCH (08:23)
--- NOTE | 2016-11-15 10:53 | PROGRESS NOTE ---
DATE: 11/15/2016 SUBJECTIVE: Today Ms. Bolton continues to be pretty much the same, critical. She says she is doing a little better and breathing has slightly improved after the thoracentesis. OBJECTIVE: Vital signs: Blood pressure is 119/60, pulse of 93, respirations 14 , temperature is 98.4 degrees. General: Ms. Bolton is a 76-year-old female. She is in bed, not seemingly distressed. HEENT: Mucosa is pink and moist. Anicteric. Acyanotic. Neck: Supple. Chest: Air entry is bilaterally reduced. There is bilateral posterior crepitations. Cardiovascular: Tachycardic but no murmurs. Abdomen: Soft. There is a PEG tube in place and there is a mass palpable. INSPECTOR WATER POLLUTION CONTROL: The patient is alert and oriented. There is no focal neurological deficit. LABORATORY DATA: ABGs reviewed and unremarkable. Chemistry: Sodium is 146, potassium is 3.1, chloride is 107, bicarb is 25, BUN is 35, creatinine is 1.2. ASSESSMENT: 1. Small bowel obstruction secondary to underlying ovarian cancer with peritoneal caking. Status post PEG tube placement for GI decompression. 2. Stage IV ovarian cancer with poor prognosis. 3. Respiratory distress secondary to malignant pleural effusion, likely from metastasis. Patient on 2 different occasions has been tapped. 4. Acute kidney injury, improving. 5. Diabetes mellitus. 6. Protein calorie malnutrition. TPN has been started. 7. Overall poor prognosis with poor performance status. PLAN: So I think in general Ms. Bolton continues to be relatively stable. TPN was started yesterday. A chest x-ray this morning shows moderate size bilateral pleural effusions with bibasilar atelectasis. We are going to continue observing her here for another 24 hours. Hopefully, will transfer her from here to a regular floor and start planning her discharge for tomorrow. Patient and patient want to pursue therapy for the ovarian cancer. Dr Albert is on board. Plan is to get patient home on TPN, let her stronger so she can get chemotherapy on outpatient basis. She is extremely POOR PROGNOSIS cc: Brayden Ruiz MD [facility]
[2016-11-15 11:52] LABS: ALBUMIN 3.2 g/dL (3.5-5.0); ALKALINE PHOSPHATASE 81 U/L (32-104); DIRECT BILIRUBIN < 0.20 mg/dL (0.00-0.20); GOT 37 U/L (10-30); GPT 48 U/L (10-36); TOTAL BILIRUBIN 0.52 mg/dL (0.20-1.00); TOTAL PROTEIN 7.3 g/dL (6.3-8.3)
[2016-11-15] MEDS: LIPOSYN 20% 250 ML IV SCH (15:03)
[2016-11-15] MEDS: TPN ELECTROLYTES 20 ML, MAGNESIUM SULFATE 4 MEQ, POTASSIUM CHLORIDE 30 MEQ, SODIUM PHOS... IV SCH ×8 (16:44)
[2016-11-15] MEDS: SODIUM CHLORIDE 0.9% INJ SCH (17:31)
[2016-11-15] MEDS: PROTONIX IV SCH (17:31)
[2016-11-15] MEDS: DULCOLAX PR SCH (20:07)
[2016-11-16] MEDS: DILAUDID IV PRN ×5 (01:15→22:00)
[2016-11-16] MEDS: HUMALOG SUBQ SCH ×6 (01:15→20:18)
[2016-11-16] MEDS: CARAFATE LIQUID PO SCH ×4 (02:24→20:17)
[2016-11-16] MEDS: SODIUM CHLORIDE 0.9% INJ SCH ×2 (05:31→16:58)
[2016-11-16] MEDS: PROTONIX IV SCH ×2 (05:31→17:34)
[2016-11-16 06:46] LABS: CALCIUM 8.4 mg/dL (8.8-10.2); MAGNESIUM 2.1 mg/dL (1.5-2.7); POTASSIUM 2.9 mmol/L (3.5-5.1)
[2016-11-16] MEDS ORDERED: MAGNESIUM SULFATE 2 GM/S.W.I. 2 GM/50 ML IVPB IV ONE (07:01)
[2016-11-16] MEDS ORDERED: POTASSIUM CHLORIDE 40 MEQ/SWI 40 MEQ/100 ML IVPB IV ONE (07:38)
[2016-11-16] MEDS: POTASSIUM CHLORIDE 20 MEQ/SWI 20 MEQ/100 ML IVPB IV SCH ×2 (07:44→09:44)
[2016-11-16] MEDS: LASIX IV SCH ×2 (07:44→09:44)
[2016-11-16] MEDS: LANTUS SUBQ SCH ×2 (07:46→09:44)
[2016-11-16] MEDS: DURAGESIC 12 MICROGM/HR PATCH TD SCH (12:59)
--- NOTE | 2016-11-16 13:44 | PROGRESS NOTE ---
DATE: 11/16/2016 SUBJECTIVE: The patient is resting comfortably in bed. She states that her pain is under good control with Dilaudid. She states that her shortness of breath has improved. OBJECTIVE: Vital Signs: Temperature 97.8 degrees, blood pressure 115/58, heart rate 99, respirations 15, O2 saturation is 100% on 2 L nasal cannula. General: This is an elderly female, lying in bed, in no acute distress. HEENT: Head normocephalic. Atraumatic. Heart: S1, S2. Normal. Tachycardic. Lungs: Equal air entry bilaterally. No crackles. No rales. Abdomen: Positive bowel sounds. Soft, nontender, nondistended. Extremities: No edema. No cyanosis. No calf tenderness. Neurologic: The patient is alert and oriented x3. LABORATORY DATA: Sodium 143, potassium 2.9, chloride 104, CO2 24, BUN 31, creatinine 1.2, glucose 192, calcium 8.4. ASSESSMENT AND PLAN: 1. Stage IV ovarian cancer. Aware. Oncology is following. 2. Status post PEG tube placement for GI decompression secondary to the small bowel obstruction. Aware. 3. Malignant pleural effusion status post thoracentesis x2. Stable. 4. Acute kidney injury. Improved. 5. Anemia of chronic disease. The patient's hemoglobin and hematocrit are stable. 6. Hypokalemia. We will replace the patient's potassium. 7. Diabetes mellitus type 2. Continue on sliding scale insulin. 8. Continue with physical therapy. DISPOSITION: Hopefully the patient will be able to be discharged in the next day or so. cc: Danni Liang MD [facility]
[2016-11-16] MEDS: LIPOSYN 20% 250 ML IV SCH (16:58)
[2016-11-16] MEDS: TPN ELECTROLYTES 20 ML, MAGNESIUM SULFATE 4 MEQ, POTASSIUM CHLORIDE 30 MEQ, SODIUM PHOS... IV SCH ×16 (16:59→17:06)
[2016-11-16] MEDS: TPN ELECTROLYTES IV SCH ×8 (17:06)
[2016-11-16] MEDS: POTASSIUM CHLORIDE IV SCH ×8 (17:06)
[2016-11-16] MEDS: MAGNESIUM SULFATE IV SCH ×8 (17:06)
[2016-11-16] MEDS: [UNRECOGNIZED DRUG - OTHER] IV SCH ×8 (17:06)
[2016-11-16] MEDS: DULCOLAX PR SCH (20:18)
[2016-11-17] MEDS: DILAUDID IV PRN ×5 (01:09→22:23)
[2016-11-17] MEDS: HUMALOG SUBQ SCH ×6 (01:47→20:47)
[2016-11-17] MEDS: CARAFATE LIQUID PO SCH ×4 (02:38→20:46)
[2016-11-17] MEDS: PROTONIX IV SCH ×2 (06:06→17:16)
[2016-11-17] MEDS: SODIUM CHLORIDE 0.9% INJ SCH (06:07)
[2016-11-17 06:25] LABS: HEMATOCRIT 28.7 % (37.0-47.0); HEMOGLOBIN 9.3 g/dL (12.0-16.0); MCHC 32.4 g/dL (33-37); MPV 11.6 FL (7.4-10.4); RBC 3.88 XMIL (4.2-5.4)
[2016-11-17 06:51] LABS: CALCIUM 8.5 mg/dL (8.8-10.2); MAGNESIUM 2.4 mg/dL (1.5-2.7); POTASSIUM 3.5 mmol/L (3.5-5.1)
--- NOTE | 2016-11-17 07:20 | Diag Imaging Result Doc PS360 ---
EXAM: CHEST-PORTABLE HISTORY: pleural effusion TECHNIQUE: AP portable erect dated 11/17/2016 at 0530 COMMENT: There are large bilateral pleural effusions. There is a right-sided PICC line with its tip in the right atrium. There is been no appreciable change since 11/15/2016. IMPRESSION: Bilateral pleural effusions stable since 11/15/2016 Electronically signed by Trung Trinh 11/17/2016 7:17 AM
[2016-11-17] MEDS: LASIX IV SCH (10:16)
[2016-11-17] MEDS: LANTUS SUBQ SCH (10:16)
--- NOTE | 2016-11-17 13:04 | PROGRESS NOTE ---
DATE: 11/17/2016 SUBJECTIVE: Ms. Bolton is feeling okay today. She reports feeling much improved since I last saw her on Wednesday. Patient reports that she is ready to go home. OBJECTIVE: Vital Signs: Temperature 98.4 degrees, heart rate 64, respirations 24, blood pressure 125/49, O2 saturations 96% on 2 L nasal cannula. LABORATORY: White blood cells are 7.31 today. Hemoglobin 9.3, hematocrit 20.7, platelets 216,000, sodium 144, potassium 3.5, chloride 106, CO2 24, BUN 34, creatinine 1.2, glucose 186. PHYSICAL EXAM: Cardiovascular: S1-S2 heard. No murmurs, gallops, rubs appreciated. Regular rate and rhythm. Respiratory: Clear to auscultation bilaterally anteriorly. Patient does have some decreased breath sounds on bilateral bases. Appears to be overall stable. Abdomen: Mildly distended. Hypoactive bowel sounds. Musculoskeletal: The patient has some trace bilateral extremity edema with the left being slightly greater than the right. ASSESSMENT AND PLAN: 1. Stage IV ovarian carcinoma. Patient was able to see cycle 1, day 1 of carbo Taxol. She was subsequently then admitted to the hospital with pneumonia. She has had some complications and at this point the patient will go home on palliative care. No further chemotherapy is planned at this time. However, if the patient were to a improve, we would rediscuss initiating some sort of chemotherapy. 2. Small bowel obstruction. Patient has a PEG tube in place for decompression. She is only able to tolerate ice chips at this point. She is on TPN. Pain is currently well controlled. Management as per GI. 3. Pain is very well-controlled with Dilaudid. She will be able to continue IV Dilaudid and NPH insulin once she is at home. 4. Pneumonia. This seems to have resolved. 5. Right lateral pleural fusions. Overall stable. May need a palliative Pleurx catheter in the future. DISPOSITION: We agree with the patient is going home today with palliative care. All the necessary equipment items have been arranged for her to use once home. We will continue to follow with the patient as an outpatient. Dictated by JEANNIE Samano for Dahlia Albert MD cc: Dahlia Albert MD
--- NOTE | 2016-11-17 13:11 | PALLIATIVE CARE PROGRESS NOTE ---
DATE: 11/17/2016 SUBJECTIVE: I made a followup visit with Ms. Bolton, her , and 2 children today to discuss her prognosis and discharge plans. She is sitting on the bedside and appears comfortable. She denies pain. She denies shortness of breath. OBJECTIVE: General: This is a 76-year-old, elderly, thin, female who does not appear to be in any acute distress. HEENT: Atraumatic, normocephalic. Cardiovascular: Increased rate. Regular rhythm. Pulmonary: Lung sounds are diminished. Respirations are nonlabored. Abdomen: Bowel sounds are hypoactive. Abdomen is soft. Extremities: Pulses are palpable. Neurologic: Awake, alert, and oriented to person, place, and time. ASSESSMENT AND PLAN: We discussed discharge plans, including hospice services, home health services, and outpatient palliative care services. We discussed prognosis. The family and patient wish to go home with home health and outpatient palliative care services. The role of outpatient palliative care services was discussed and all questions were answered. CODE STATUS: Ms. Bolton remains a full code. As mentioned, she does not have any acute complaints at this time. The palliative care team will continue to follow. Dictated by KEYSHA Faith for Solo Perkins MD cc: KEYSHA Faith MD
--- NOTE | 2016-11-17 14:14 | PROGRESS NOTE ---
DATE: 11/17/2016 SUBJECTIVE: The patient states that she is feeling better. She was admitted to the ICU over the weekend for dyspnea. She was found to have a significant reaccumulation of her pleural effusion. Since she has been diuresed and underwent a thoracentesis, she is breathing significantly better. She continues to have some drainage from her decompressive PEG but she notes it is slightly less than it has been. She denies abdominal pain, nausea, vomiting. She has had some gas in the upper chest as well as in her abdomen. PHYSICAL EXAM: General: She is resting comfortably on the bedside. Vital signs: Her blood pressure is 125/49, pulse 64, respiration 24, temperature of 98.4 degrees. HEENT: Negative for jaundice. Pulmonary: Her breath sounds are considerably improved. She is clear anteriorly. The breath sounds are decreased in the bases bilaterally. Cardiovascular: She has a regular rate and rhythm with no murmurs, gallops, or rubs. Abdomen: Reveals hypoactive bowel sounds. The abdomen is soft with moderate distention but it is stable from previous. Her PEG is in the left upper quadrant and rotates freely. There is minimal drainage. Extremities: Bilaterally are notable for trace edema. OBJECTIVE DATA: Remarkable for hemoglobin 9.3 with hematocrit 27.8 and a white count of 7.31. She has 216,000 platelets. Sodium is 144, potassium 3.5, chloride 106, CO2 24, BUN 34, creatinine 1.2 with a glucose of 186. Calcium is 8.5, phosphorus 3.5, magnesium 2.4. RECOMMENDATION: 1. From a GI standpoint, I would teach patient how to flush her PEG tube. It will need intermittent flushing. I would continue the PEG tube to low intermittent suction or to gravity at home. 2. From a GI bleeding standpoint, the patient remains hemodynamically stable. I would continue to monitor serial hemoglobin and hematocrit both as an inpatient and as an outpatient. 3. She has had a mild bump in her liver function tests. I would continue to monitor this and avoid excess carbohydrate intake with her home TPN. 4. Her home TPN will be managed primarily by Dr. Dahlia Albert. However, we are available if there are any specific concerns. 5. Will have the patient return to clinic in 3-4 weeks to assess interval progress. She was given our contact information should she have any urgent issues. cc: [facility]ENTER[facility]illermo ALLEN
--- NOTE | 2016-11-17 15:44 | PROGRESS NOTE ---
DATE: 11/17/2016 SUBJECTIVE: The patient is sitting up in bed. She states that she feels better today. No acute events noted overnight. OBJECTIVE: Vital Signs: Temperature 98.4 degrees, blood pressure 125/49, heart rate 64, respirations 24, O2 saturations 100% on 2 L nasal cannula. General: This is an elderly female, sitting at the edge of the bed, in no acute distress. Head: Normocephalic, atraumatic. Heart: S1, S2. Normal. Regular rate and rhythm. Lungs: Clear to auscultation bilaterally. Abdomen: Positive bowel sounds. Soft, nontender, nondistended. Extremities: No edema. No cyanosis. No calf tenderness. Neurologic: The patient is alert oriented x3. LABORATORY: Hemoglobin 9.3, hematocrit 28, platelets 216,000. Sodium 144, potassium 3.5, chloride 106, CO2 24, BUN 34, creatinine 1.2, glucose 186, calcium 8.5, magnesium 2.4. ASSESSMENT AND PLAN: 1. 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 The patient will follow up with Dr. Albert to discuss further chemotherapy options. 2. Malignant bilateral pleural effusion, status post thoracentesis x2. Stable. 3. Small bowel obstruction status post gastrostomy tube placement for gastrointestinal decompression. Stable. 4. Diabetes mellitus type 2. Continue on sliding scale insulin plus Lantus. 5. Anemia of chronic disease. Stable. 6. Disposition. Will plan to discharge the patient home tomorrow cc: Danni Liang MD MTDD
[2016-11-17] MEDS: LIPOSYN 20% 250 ML IV SCH (17:13)
[2016-11-17] MEDS: POTASSIUM CHLORIDE IV SCH ×8 (17:14)
[2016-11-17] MEDS: MAGNESIUM SULFATE IV SCH ×8 (17:14)
[2016-11-17] MEDS: [UNRECOGNIZED DRUG - OTHER] IV SCH ×8 (17:14)
[2016-11-17] MEDS: TPN ELECTROLYTES IV SCH ×8 (17:14)
[2016-11-17] MEDS: DULCOLAX PR SCH (20:46)
[2016-11-18] MEDS: DILAUDID IV PRN ×5 (01:14→17:19)
[2016-11-18] MEDS: CARAFATE LIQUID PO SCH ×2 (05:35→11:13)
[2016-11-18] MEDS: HUMALOG SUBQ SCH ×5 (05:38→18:44)
[2016-11-18 07:21] LABS: AGAP 15; BUN 34 mg/dL (8-22); CALCIUM 8.5 mg/dL (8.8-10.2); CHLORIDE 103 mmol/L (98-107); COSMO 299; MAGNESIUM 2.3 mg/dL (1.5-2.7); POTASSIUM 3.4 mmol/L (3.5-5.1); SODIUM 143 mmol/L (136-145); TCO2 25 mmol/L (25-35)
[2016-11-18] MEDS ORDERED: POTASSIUM CHLORIDE 40 MEQ/SWI 40 MEQ/100 ML IVPB IV ONE (08:00)
[2016-11-18] MEDS: DUONEB (A & A) INH PRN ×2 (08:00→15:13)
[2016-11-18 08:43] VITALS: BP 124/49
[2016-11-18] MEDS: PROTONIX IV SCH (11:13)
[2016-11-18] MEDS: LASIX IV SCH ×2 (11:13→11:28)
[2016-11-18] MEDS: LANTUS SUBQ SCH (11:20)
[2016-11-18] MEDS ORDERED: INSULIN PEN NEEDLES ONE (14:24)
--- NOTE | 2016-11-19 09:52 | DISCHARGE SUMMARY ---
ADMISSION DATE: 10/23/2016 DISCHARGE DATE: 11/18/2016 PRIMARY ONCOLOGIST: Dr. Dahlia Albert. FINAL DISCHARGE DIAGNOSES: 1. 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 2. Malignant bilateral pleural effusions, status post thoracentesis x2. 3. Small bowel obstruction, status post gastrostomy tube placement for gastrointestinal decompression. 4. Diabetes mellitus type 2. 5. Anemia of chronic disease. 6. Protein calorie malnutrition. 7. Hypokalemia. CONSULTATIONS REQUESTED DURING THIS HOSPITAL STAY: 1. Oncology consultation with Dr. Dahlia Albert. 2. GI consultation with Dr. Ellen Parrish. IMAGING PERFORMED DURING THIS HOSPITAL STAY: 1. CT of the chest, abdomen, and pelvis performed on 10/30/2016 that revealed moderate bilateral pleural effusions, extensive omental caking, small bowel obstruction. 2. Abdominal ultrasound performed on 11/09/2016 that revealed bilateral pleural effusions. PROCEDURES PERFORMED DURING THIS HOSPITAL STAY: 1. Ultrasound-guided thoracentesis performed on 11/06/2016, at which time 1.2 L of fluid was removed from the left lung. 2. Ultrasound-guided thoracentesis performed on 11/13/2016, at which time 1.25 L was removed from the left side. 3. EGD with PEG placement performed on 11/02/2016. HOSPITAL COURSE: Ms. Bolton is a 76-year-old female with a recent diagnosis of stage IV ovarian cancer with peritoneal carcinomatosis, who presented to the ER with a chief complaint of shortness of breath. On admission, a CT of the chest, abdomen, and pelvis was done that revealed bilateral pleural effusions that were increasing in size. The patient had just completed her first cycle of chemotherapy. The patient was admitted to the Hospitalist Service, and Dr. Dahlia Albert was consulted for further guidance. A diagnostic thoracentesis was performed at the bedside, and ultimately the pleural fluid revealed malignant cells. The CAT scan also revealed a small bowel obstruction. As a result, Dr. Parrish was consulted, and it was thought that the extensive omental caking that the patient had in her abdomen was contributing to her obstruction. It was recommended that the patient undergo a decompressive gastrostomy tube placement. On 11/06/2016, the patient underwent a left-sided ultrasound-guided thoracentesis, at which time 1.2 L of pleural fluid was removed. Following this, the patient's respiratory status improved greatly. On 11/03/2016, the patient underwent a decompressive gastrostomy tube placement, and that was hooked up to low intermittent suction with relief of the patient's nausea and vomiting as a result. About 7 days later, the patient was noted to be more short of breath, and had a brief stay in the ICU, at which time it was discovered that the patient's left-sided pleural effusion had reaccumulated. The patient then underwent a second left-sided ultrasound-guided thoracentesis, at which another 1.2 L of fluid was removed. Again, the patient improved, and was ultimately transferred out of the ICU. A repeat chest x-ray was done each day leading up to discharge, at which time there was no reaccumulation of the pleural fluid. The patient was placed on Dilaudid for pain control, which will be managed by Dr. Albert and [facility]. The patient was also started on TPN for nutrition since she will not be able to eat anything. Home health was also arranged for the patient, and the patient was ultimately cleared for discharge home on 11/18/2016. DISCHARGE MEDICATIONS: 1. Dulcolax 10 mg per rectum at bedtime. 2. Dilaudid 1 subcutaneously every 3 hours p.r.n. for pain. 3. Lantus 10 units subcutaneously daily. 4. Carafate 1 gram oral every 6 hours. 5. Zofran ODT 4 mg oral every 6 hours p.r.n. for nausea. DISCHARGE INSTRUCTIONS: The patient is scheduled to follow up with Dr. Albert to discuss further chemotherapy options. cc: Danni Liang MD
== END 2016-11-18 17:46 | disposition home health service (06) ==
LOC: ED 02:42 → SUATTDRO 05:42 → 3N 05:42 → ICU 11-12 19:54 → 3N 11-15 18:20
PROVIDERS: ATTEND Internal Medicine

== ENCOUNTER 2016-11-19 07:20 | Inpatient (IN) ==
--- NOTE | 2016-11-19 08:37 | Diag Imaging Result Doc PS360 ---
EXAM: CHEST-1 VIEW HISTORY: sob TECHNIQUE: AP portable upright at 0810 COMMENT: There are bilateral pleural effusions. This has not changed significantly since 11/17/2016. There is a PICC line on the right with its tip just above the right atrium. There is compressive atelectasis in both lower lobes. IMPRESSION: Large bilateral pleural effusions. Electronically signed by Trung Trinh 11/19/2016 8:35 AM
[2016-11-19 08:53] LABS: BASO% 0.4 % (0.0-0.8); EOS% 1.2 % (0.0-10.0); HEMATOCRIT 32.6 % (37.0-47.0); HEMOGLOBIN 10.5 g/dL (12.0-16.0); IMM GRAN# 0.02 X1000 (0.0-0.04); IMM GRAN% 0.2 % (0.0-0.5); LYMPH# 0.98 X1000 (1.2-3.4); LYMPH% 11.6 % (20.5-51.1); MANUAL DIFF NEEDED? NO; MCH 23.6 PG (27-31); MCHC 32.2 g/dL (33-37); MCV 73.4 FL (81-99); MONO# 0.36 X1000 (0.11-0.59); MONO% 4.3 % (1.7-9.3); MPV 11.5 FL (7.4-10.4); NEUT% 82.3 % (42.2-75.2); PLT 303 X1000 (130-400); RBC 4.44 XMIL (4.2-5.4)
[2016-11-19 08:58] LABS: INR 1.15; PROTIME 12.2 Seconds (9.2-11.7); PTT 30.7 Seconds (22.0-36.0)
[2016-11-19] MEDS ORDERED: ZOFRAN IV ONE ×2 (09:09→11:01)
[2016-11-19] MEDS ORDERED: ZOFRAN ONE (09:10)
[2016-11-19 09:12] LABS: AGAP 16; ALBUMIN 3.4 g/dL (3.5-5.0); ALKALINE PHOSPHATASE 110 U/L (32-104); BUN 29 mg/dL (8-22); CALCIUM 9.1 mg/dL (8.8-10.2); CHLORIDE 102 mmol/L (98-107); CK PROFILE 55 U/L (24-173); COSMO 300; GOT 45 U/L (10-30); GPT 85 U/L (10-36); MAGNESIUM 2.2 mg/dL (1.5-2.7); POTASSIUM 3.9 mmol/L (3.5-5.1); SODIUM 142 mmol/L (136-145); TCO2 24 mmol/L (25-35); TOTAL BILIRUBIN 0.48 mg/dL (0.20-1.00); TOTAL PROTEIN 8.2 g/dL (6.3-8.3)
--- NOTE | 2016-11-19 10:08 | EKG Report ---
Test Performed on : 11/19/2016 07:43:25 AM Test Reason : sob Blood Pressure : / mmHG Vent. Rate : 115 BPM Atrial Rate : 115 BPM P-R Int : 098 ms QRS Dur : 068 ms QT Int : 324 ms P-R-T Axes : 105 044 058 degrees QTc Int : 448 ms Sinus tachycardia. with short SD Nonspecific ST and T wave abnormality Abnormal ECG When compared with ECG of 19-NOV-2016 07:39, (Unconfirmed) No significant change was found Unconfirmed Result
--- NOTE | 2016-11-19 10:30 | PROVIDER DOCUMENTATION ---
HPI-General Adult - General Chief Complaint: Possible Sepsis-D Stated Complaint: sob Time Seen by Provider: 11/19/16 09:45 Source: patient Allergies/Adverse Reactions: Patient Allergies Allergy/AdvReac Type Severity Reaction Status Date / Time clarithromycin Allergy NAUSEA Verified 11/19/16 07:38 doxycycline Allergy NAUSEA Verified 11/19/16 07:38 hydrocodone AdvReac racing Verified 11/19/16 07:38 heart Home Medications: Home Medication List Medication Instructions Recorded Confirmed Last Taken Type Bisacodyl [Dulcolax] 10 mg SD QHS #30 supp 11/17/16 11/19/16 Unknown Rx Hydromorphone [Dilaudid 1 mg/1 ml 1 mg IV Q3H PRN PRN #5 syr 11/17/16 11/19/16 11/19/16 02:45 Rx syringe] Insulin Glargine,Hum.rec.anlog 10 unit SQ DAILY #5 insuln.pen 11/17/16 11/19/16 11/18/16 12:00 Rx [Lantus Solostar] Ondansetron [Zofran Odt] 4 mg PO Q6H PRN #30 tab.rapdis 11/17/16 11/19/16 Unknown Rx Sucralfate [Carafate Liquid] 1 gm PO Q6H #414 ml 11/17/16 11/19/16 11/18/16 Rx - History of Present Illness -Gen Adult Nature of Presenting Problems: 76 yof c/o SOB that has worsened and now has increased confusion also. Pt was just discharged from the hospital last night about 5pm. Pain is uncontrolled. Location of Pain/Injury: reports: chest, abdomen Quality of Pain: reports: aching Severity: reports: moderate, severe Onset/Duration: reports: other (Chronic) Context/Activities at Onset: reports: none Modifying Factors: improves with: analgesics Similar Symptoms Previously?: No Recently seen or treated by another doctor?: No Review of Systems - Adult - REVIEW OF SYSTEMS - ADULT Constitutional: reports: see HPI, chills Eyes: reports: no symptoms reported Ears, Nose, Mouth & Throat: reports: no symptoms reported Cardiovascular: reports: see HPI, irregular heart rate, palpitations Respiratory: reports: see HPI, cough, dyspnea on exertion, shortness of breath Gastrointestinal: reports: see HPI, abdominal pain, other (Currently has a SBO) Genitourinary: reports: no symptoms reported Musculoskeletal: reports: no symptoms reported Integumentary: reports: no symptoms reported Neurological: reports: no symptoms reported Psychiatric: reports: no symptoms reported Endocrine: reports: no symptoms reported Hematologic/Lymphatic: reports: no symptoms reported Allergic/Immunologic: reports: no symptoms reported All Other Systems: Reviewed and Negative Past History - Adult - PAST MEDICAL HISTORY-ADULT Review of Records: reports: Old Records Reviewed, Nursing Assessment Review, Medications Reviewed, Social history reviewed & non-contributory. Major Childhood Illnesses: reports: denies history Cardiovascular: reports: HTN Obstetrical/Gynecological: reports: uterine/ovarian cancer - PRIOR SURGERIES/PROCEDURES Surgical/Procedure History: reports: none - IMMUNIZATION STATUS Childhood Immunizations: See Nurse Assessment Flu Vaccine: See Nurse Assessment Physical Exam-General - PHYSICAL EXAM-ADULT Initial Vital Signs Reviewed: Yes - CONSTITUTIONAL General Appearance: alert, moderate distress (Due to SOB and pain) - EYES Eyes: PERRL/EOMI, pink conjunctivae - HEAD, EARS, NOSE, MOUTH & THROAT HENMT: normocephalic/atraumatic, moist mucous membranes, normal ENT inspection - NECK Neck: non-tender, full range of motion, supple, normal inspection - RESPIRATORY Respiratory: chest non-tender, respiratory distress, decreased breath sounds ( No breath sounds auscultated in left lower lung moreno), pain on inspiration, increased rate. negative: normal breath sounds - CARDIOVASCULAR Cardiovascular: normal peripheral pulses, tachycardia - GASTROINTESTINAL (ABDOMEN) Abdominal Exam: abnormal bowel sounds, distended, tenderness, other (Pt has G- Tube in place draining to gravity into bag.) - LYMPHATIC Lymphatic: no adenopathy - MUSCULOSKELETAL Back Exam: normal inspection, no CVA tenderness, no vertebral tenderness Extremity: normal range of motion, no pedal edema, no calf tenderness, normal capillary refill, pelvis stable Peripheral Pulses: radial (R): 2+, radial (L): 2+, dorsalis-pedis (R): 2+, dorsalis-pedis (L): 2+ - SKIN Integumentary: normal color, normal turgor, warm/dry - NEUROLOGIC Neurologic: grossly normal - PSYCHIATRIC Psych/Mental Status: normal mood/affect, normal thought content, other (Pt not oriented to time) Progress - PLAN OF CARE/RESULTS Progress/Plan/Lab Results: Vital Signs - 8 hr 11/19/16 07:26 11/19/16 07:51 11/19/16 09:52 Temperature 98.4 F Pulse Rate 114 H 112 H 115 H Respiratory Rate 29 H 23 30 H Blood Pressure 163/67 163/67 154/73 O2 Sat by Pulse Oximetry 98 97 100 Laboratory Results - last 24 hr 11/19/16 11/19/16 11/19/16 08:26 08:26 08:26 WBC 8.46 RBC 4.44 Hgb 10.5 L Hct 32.6 L MCV 73.4 L MCH 23.6 L MCHC 32.2 L RDW Std Deviation 20.1 H Plt Count 303 MPV 11.5 H Immature Gran % (Auto) 0.2 Neut % (Auto) 82.3 H Lymph % (Auto) 11.6 L [place] % (Auto) 4.3 Eos % (Auto) 1.2 Baso % (Auto) 0.4 Immature Gran # (Auto) 0.02 Neut # (Auto) 6.97 H Lymph # (Auto) 0.98 L [place] # (Auto) 0.36 Eos # (Auto) 0.10 Baso # (Auto) 0.03 PT INR PTT (Actin FS) Sodium 142 Potassium 3.9 Chloride 102 Carbon Dioxide 24 L Anion Gap 16 BUN 29 H Creatinine 0.9 Estimated GFR/1.73 m2 > 60 BUN/Creatinine Ratio 32 Glucose 302 H Calculated Osmolality 300 Calcium 9.1 Magnesium 2.2 Total Bilirubin 0.48 AST 45 H ALT 85 H Alkaline Phosphatase 110 H Creatine Kinase 55 Troponin T Hdy-D-Zzanvnfxgzu Pept 116 Total Protein 8.2 Albumin 3.4 L Globulin 4.8 Albumin/Globulin Ratio 0.7 Plasma Lactate 11/19/16 11/19/16 11/19/16 08:26 08:26 09:23 WBC RBC Hgb Hct MCV MCH MCHC RDW Std Deviation Plt Count MPV Immature Gran % (Auto) Neut % (Auto) Lymph % (Auto) [place] % (Auto) Eos % (Auto) Baso % (Auto) Immature Gran # (Auto) Neut # (Auto) Lymph # (Auto) [place] # (Auto) Eos # (Auto) Baso # (Auto) PT 12.2 H INR 1.15 PTT (Actin FS) 30.7 Sodium Potassium Chloride Carbon Dioxide Anion Gap BUN Creatinine Estimated GFR/1.73 m2 BUN/Creatinine Ratio Glucose Calculated Osmolality Calcium Magnesium Total Bilirubin AST ALT Alkaline Phosphatase Creatine Kinase Troponin T < 0.010 Ttq-N-Oxialbjxyhb Pept Total Protein Albumin Globulin Albumin/Globulin Ratio Plasma Lactate 2.5 H Orders Category Date Time Status Cardiac Monitoring DIRECTED Care 11/19/16 08:02 Active Oxygen Therapy- ED Nursing DIRECTED Care 11/19/16 08:02 Active Saline Loc NOW Care 11/19/16 08:02 Active CHEST-1 VIEW [RAD] Stat Exams 11/19/16 08:02 Completed BLOOD CULTURE [BLDCUL] Stat Lab 11/19/16 09:05 Received CBC WITH ELECTRONIC DIFF [HEME] Stat Lab 11/19/16 08:26 Completed CK PROFILE [SP CHEM] Stat Lab 11/19/16 08:26 Completed COMPREHENSIVE METABOLIC PANEL [CHEM] Stat Lab 11/19/16 08:[address] D-DIMER [address] [COAG] Stat Lab 11/19/16 08:26 Received LACTATE, PLASMA [CHEM] Stat Lab 11/19/16 09:23 Completed MAGNESIUM [CHEM] Stat Lab 11/19/16 08:26 Completed PRO B-NATRIURETIC PEPTIDE Stat Lab 11/19/16 08:26 Completed PROTIME WITH INR [COAG] Stat Lab 11/19/16 08:26 Completed PTT [COAG] Stat Lab 11/19/16 08:26 Completed TROPONIN T Stat Lab 11/19/16 08:26 Completed Ondansetron [Zofran] Med 11/19/16 09:10 Discontinued 4 mg .ROUTE .STK-MED ONE Ondansetron [Zofran] Med 11/19/16 09:09 Discontinued 4 mg IV NOW ONE EKG [EKG] Stat Ther 11/19/16 08:02 Draft Result Diagrams: 11/19/16 08:26 11/19/16 08:26 - XRAY 1 XRAY Study: Chest Impression: See EMR Report (Large Pleural effusions. Same since prior exam. Per radiologist) - CONSULTS/PCP/HOSPITALIST Notification #1 *Consult/PCP/Hospitalist*: [place] Time Discussed: 10:55 Consult Disposition: Will see in ED, Admit Departure - Departure Date of Disposition Decision: 11/19/16 Time of Disposition Decision: 10:56 DIAGNOSIS: Pleural effusion, Small bowel obstruction Disposition: ADMITTED INPATIENT 09 Certified Medical Emergency: Emergent Condition: Stable Referrals and Follow-Ups: None,PCP [Primary Care Provider] - - Critical Care Note This patient required my direct & personal management of CC.: No Attestation - Physician/ FAUSTO Attestation Patient care was provided by Advanced Practice Provider:: Yes Advanced Practice Provider:: Ward Curiel Advanced Practice Provider documentation review:: The Mid-level provider documentation, treatment plan and medical decision making was reviewed by the physician who agrees with all treatment and medical decision making by the MLP.
[2016-11-19] MEDS ORDERED: DILAUDID IV ONE (10:35)
[2016-11-19 10:41] LABS: URINE SOURCE CLEAN CATCH
[2016-11-19 10:46] LABS: BILIRUBIN URINE NEGATIVE (NEGATIVE); BLOOD URINE NEGATIVE (NEGATIVE); COLOR YELLOW; GLUCOSE URINE >1000 mg/dL (NEGATIVE); LEUKOCYTES URINE NEGATIVE (NEGATIVE); NITRITE URINE NEGATIVE (NEGATIVE); PROTEIN URINE TRACE mg/dL (NEGATIVE); SP GRAVITY URINE 1.019; TURBIDITY URINE CLEAR (CLEAR); UR EPITHELIAL CELLS >10 /HPF (<10); URINE BACTERIA NEGATIVE /HPF; URINE CULTURE NEEDED? YES; URINE MICRO REVIEW NEEDED? YES; URINE RBC <10 /HPF (<10); UROBILINOGEN URINE NORMAL (NORMAL)
[2016-11-19] MEDS ORDERED: VANCOMYCIN IV PER PHARMACY MISC SCH (11:00)
--- NOTE | 2016-11-19 11:41 | Diag Imaging Result Doc PS360 ---
ANGIOGRAM/PULMONARY ARTERIES - 11/19/2016 INDICATION: SOB, Elevated D-Dimer TECHNIQUE: Axial CT images were obtained after administering intravenous contrast. Coronal MIP images were generated. A CT dose reduction protocol was used. COMPARISON: 10/30/2016 FINDINGS: There is no pulmonary embolism. There are large bilateral pleural effusions, occupying about two thirds of the chest on each side. There is mild cardiomegaly. IMPRESSION: No pulmonary embolism. Large bilateral pleural effusions. Electronically signed by Mj Shaffer 11/19/2016 11:39 AM
[2016-11-19] MEDS: ZOSYN 3.375 GM/NS 3.375 GM/50 ML IVPB IV SCH ×3 (11:47→23:57)
[2016-11-19 11:54] LABS: ALLEN TEST YES; BE 2.3 mmoll (-3.0-3.0); BLOOD TYPE ARTERIAL; DRAW SITE L RADIAL; METHB 1.5 % (0.0-1.5); O2(CT) 9.9 mL/dL (15.0-23.0); PCO2(98.6) 37 mmHg (35-45); PO2(98.6) 72 mmHg (60-100); SAMPLE BLOOD; SAO2 96.6 % (95.0-100.0); THB 7.4 g/dL (11.5-17.4); pH(98.6) 7.46 (7.35-7.45)
[2016-11-19 11:55] LABS: MODALITY CANNULA
[2016-11-19] MEDS ORDERED: DUONEB (A & A) INH PRN (12:46)
[2016-11-19] MEDS ORDERED: ZOFRAN ODT PO PRN (12:46)
[2016-11-19] MEDS ORDERED: DILAUDID IV PRN (12:46)
[2016-11-19] MEDS ORDERED: VANCOMYCIN 1,350 MG in NS 250 ML IV ONE (13:00)
[2016-11-19] MEDS: PROTONIX IV SCH (13:25)
[2016-11-19] MEDS: SODIUM CHLORIDE 0.9% INJ SCH (13:25)
--- NOTE | 2016-11-19 13:41 | HISTORY AND PHYSICAL ---
PRIMARY CARE PHYSICIAN: Katherin Holly MD. ONCOLOGIST: Dahlia Albert MD. CHIEF COMPLAINT: Shortness of breath. HISTORY OF PRESENT ILLNESS: Mrs. Bolton is an unfortunate, 76-year-old, female, with a history of ovarian cancer with intraabdominal carcinomatosis, as well as recurrent bilateral malignant pleural effusions who was discharged from our service yesterday. She was here for a month of shortness of breath and recurrent pleural effusions. During that time, she had multiple thoracentesis and antibiotic therapy. She was discharged yesterday and states that last night, she became short of breath again and woke up again this morning with fairly severe shortness of breath and called 911. Apparently, her initial O2 saturations were low when EMS arrived at her house. She denies any fever or chills. She does report some nausea. She is on TPN, and she came to the ER today and was noted to have bilateral pleural effusions on chest x- ray. We ordered a CTA of the chest which showed fairly profound bilateral pleural effusions occupying 2/3 of both lungs. Her laboratory data shows a plasma lactate at 2.5 , but otherwise unchanged from previous labs. She did have a D-dimer elevation of greater than 20, but a CTA to rule out any PE. The patient requests to be a full code, and so we are now going to admit her to the ICU for further treatment and evaluation. PAST MEDICAL HISTORY: 1. Stage IV ovarian cancer with intraabdominal carcinomatosis/omental caking. 2. Recurrent malignant bilateral pleural effusions. 3. Diabetes mellitus. 4. Chronic anemia. 5. History of small-bowel obstruction secondary to worsening omental caking, status post PEG tube for decompression. 6. Hypertension. 7. Hyperlipidemia. SURGICAL HISTORY: She has had multiple thoracentesis, tubal ligation, cholecystectomy, umbilical hernia repair, hysterectomy, appendectomy, recent PEG placement. FAMILY HISTORY: Noncontributory. SOCIAL HISTORY: There is no tobacco, alcohol or drug use. She lives at home with her family. REVIEW OF SYSTEMS: Fourteen-point review of systems obtained and found to be negative with the exception of the HPI. ALLERGIES: To clarithromycin, doxycycline, hydrocodone. HOME MEDICATIONS: Dulcolax 10 mg p.r. at bedtime. Dilaudid 1 mg every 3 hours IV via pump. Glargine insulin 10 units subcu daily, Zofran 4 mg p.o. q.6 hours. Carafate 1 g p.o. q.6 hours. PHYSICAL EXAMINATION: VITAL SIGNS: Blood pressure is 159/77, heart rate is 119, respiratory rate is 23, O2 saturation 100% on 2 L nasal cannula. Temperature is 98.4. GENERAL: This is a chronically ill appearing, 76-year-old, female, lying in hospital bed. No acute distress. NEUROLOGIC: The patient is awake, alert, oriented and follows commands without focal deficits. HEENT: Head is atraumatic and normocephalic. Her pupils are equal, round, reactive to light. Oral mucosa is dry. Trachea is midline. There is no JVD. CHEST: Severely diminished in both lower lung bases. CV: Tachy but regular. S1-S2 is noted. No murmurs, gallops, clicks, or rubs. GI: Severely distended and tight. Bowel sounds are hypoactive. She has no overt pain to palpation. EXTREMITIES: 1+ edema bilaterally. Pulses are palpable. SKIN: Cool to touch. DIAGNOSTIC DATA: CTA of the chest shows large bilateral pleural effusions. Chest x-ray shows large bilateral pleural effusions with compressive atelectasis. EKG shows sinus rhythm without acute ST-T abnormalities. WBC 8.46, hemoglobin 10.5, hematocrit 32.6, platelet count 303. PT 12.2, INR 1.15. D-dimer greater than 20. ABG on 2 L nasal cannula, pH 7.46, CO2 of 37 O2 of 72, bicarb 26.7, sodium 142, potassium 3.9, chloride 102, CO2 of 24, anion gap 16. BUN 29, creatinine 0.9, glucose is 302, magnesium is 2.2. Bilirubin 0.4. AST 45, ALT 85, alkaline phosphatase 110. Troponin negative. Albumin 3.4, lactate 2.5. UA shows glucose greater than 1000. No UTI. ASSESSMENT AND PLAN: 1. Recurrent malignant bilateral pleural effusions. The patient underwent 2 therapeutic thoracentesis procedures during her last admission. She would likely benefit from pleurodesis. Will defer to the regional director of admissions regarding this. Will order a thoracentesis to be done today. 2. Ovarian cancer with extensive peritoneal carcinomatosis. Aware. has been consulted. 3. Diabetes mellitus: Continue on lantus plus sliding scale insulin. 4. Small bowel obstruction: Continue total parenteral nutrition (TPN) and decompression with the PEG tube. We have ordered a x-ray of her belly. General surgery has seen her in the past and feels that at least at this time, she is not a good candidate for surgery given her other medical problems. 5. Severe protein calorie malnutrition: Continue TPN. 6. Deep vein thrombosis prophylaxis with Lovenox. Further recommendations to follow. Dictated by KEYSHA Mendiola for Danni Liang MD cc: KEYSHA Mendiola MD Emily M. McClure, MD The patient was seen and examined by me. I agree with the assessment and plan as dictated. WILFRIDO
--- NOTE | 2016-11-19 14:24 | Diag Imaging Result Doc PS360 ---
EXAM: THORACENTESIS W/IMAGE GUIDANCE HISTORY: Bilateral Pleural Effusions TECHNIQUE: Ultrasound-guided right thoracentesis COMMENT: There is a large right pleural effusion demonstrated with ultrasonography posteriorly. The risks and benefits the procedure including the possibility of bleeding infection or pneumothorax were discussed with patient and she agreed. Following sterile preparation the skin posteriorly and administration 1% lidocaine to the skin and deeper soft tissues the thoracentesis catheter was placed on the right posteriorly and subsequently 1300 mL of blood-tinged fairly clear fluid was drained from the right pleural space. There are no immediate complications. The patient tolerated the procedure well. IMPRESSION: Successful right ultrasound-guided thoracentesis. Electronically signed by Trung Trinh 11/19/2016 2:22 PM
--- NOTE | 2016-11-19 14:27 | Diag Imaging Result Doc PS360 ---
EXAM: CHEST-2 VIEWS HISTORY: SOB/ POST THORACENTESIS TECHNIQUE: Inspiratory and expiratory chest upright COMMENT: The right tibia or pleural fluid collection has been almost completely evacuated. There is no evidence of pneumothorax. There is still a large left pleural effusion. IMPRESSION: No evidence of pneumothorax. Electronically signed by Trung Trinh 11/19/2016 2:25 PM
--- NOTE | 2016-11-19 14:28 | Diag Imaging Result Doc PS360 ---
EXAM: ABDOMEN FLAT/UPRIGHT HISTORY: abd distention TECHNIQUE: Flat and upright, two views COMMENT: There is retained contrast medium in the urinary bladder presumably from the recent CT of the chest. There is an apparent gastrostomy tube. There is gaseous dilatation of bowel loops in the midabdomen with air-fluid levels. This is apparently small bowel. There is a possibility of gas in the colon. There has been previous cholecystectomy. Phleboliths are present in the pelvis. IMPRESSION: Small bowel obstruction. Electronically signed by Trung Trinh 11/19/2016 2:26 PM
--- NOTE | 2016-11-19 14:30 | CONSULTATION ---
DATE OF CONSULTATION: 11/19/2016 REFERRING PHYSICIAN: Dr. Danni Liang. ONCOLOGIST: Dr. Dahlia Albert. CHIEF COMPLAINT: Evaluation for pleural effusion, malignant. Pneumonia is possible. HISTORY OF PRESENTING ILLNESS: This 76-year-old female, with past history of ovarian cancer with metastasis intraperitoneally and malignant effusion, hyperlipidemia, hypertension, diabetes type 2 had thoracentesis last admission on 10/23/2016, and the cytology was suspicious for adenocarcinoma. PAST MEDICAL HISTORY: Ovarian cancer, metastasis intraperitoneally, and malignant effusion, hyperlipidemia, hypertension, diabetes type 2. PAST SURGICAL HISTORY: Appendectomy, hysterectomy, cholecystectomy, and tubal ligation. FAMILY HISTORY: Hypertension, diabetes. SOCIAL HISTORY: Not a smoker. REVIEW OF SYSTEMS: As detailed in history of presenting illness, otherwise, noncontributory. ALLERGIES: Possible to doxycycline, hydrocodone, and clarithromycin. MEDICATIONS IN THE HOSPITAL: Reviewed, and they include 1. Nebulized treatment. 2. Dilaudid. 3. Lantus. 4. Insulin. 5. Vancomycin. 6. Protonix. 7. Zosyn. 8. Sucralfate. REVIEW OF SYSTEMS: As detailed in history of presenting illness, otherwise, noncontributory. PHYSICAL EXAMINATION: General: The patient is sitting in bed, somewhat breathless, mild in nature. Pulse oximetry is 100% on 2 L nasal cannula. Head and Neck: Trachea midline. Chest: Reduced air entry bilaterally. Cardiac: S1, S2. Abdomen: Distended. Feeding tube in place. Extremities: Lower limb examination: +1 pedal edema. Neurologic: Awake, oriented. LABORATORY DATA AND INVESTIGATIONS: CT scan images: Report reviewed. CBC, chemistry, coagulation profile, ABGs reviewed. ASSESSMENT AND PLAN: A 76-year-old female, with past medical history as above, has metastatic adenocarcinoma for ovarian cancer intraperitoneally and malignant effusion with recurrence. We will plan for a second thoracentesis and eventually consult surgery for pleurodesis. I discussed with her that agreed with antibiotics and other management for the possibility of pneumonia. Thank you for the courtesy of this consult. cc: Latosha Weaver MD
[2016-11-19 15:06] LABS: SPECIMEN PLEURAL FLUID
[2016-11-19] MEDS: DUONEB (A & A) INH SCH ×3 (15:13→23:43)
[2016-11-19] MEDS: LOVENOX SUBQ SCH (15:35)
[2016-11-19] MEDS: CARAFATE LIQUID PO SCH ×2 (15:43→21:21)
[2016-11-19 15:56] LABS: TOTAL PROT BODY FLUID 5.1 g/dL
[2016-11-19 16:08] LABS: DIFF NEEDED? YES; MONOS 83 %; POLYS 17 %; WBC BF 342 /cumm
--- NOTE | 2016-11-19 16:54 | CONSULTATION ---
DATE OF CONSULTATION: 11/19/2016 REASON FOR CONSULTATION: The patient is known to us for peritoneal/ovarian carcinoma. HISTORY OF PRESENT ILLNESS: Ms. Bolton is a pleasant, 76-year-old, female, who was actually discharged from [facility] yesterday after an extended hospital stay. The patient was actually admitted to the hospital back on 10/23/2016 with pneumonia. The patient was receiving treatment with us at our office and was able to receive cycle 1 day 1 of Taxol/carboplatin on 10/21/2016. During this patient's last extended hospital stay, she received IV antibiotics, as well as at least 2 thoracentesis. She also developed a small -bowel obstruction, which required a PEG tube to be placed for decompression. Patient was placed on TPN. She participated in physical therapy. The patient also had a brief stint in the ICU due to having episodes of tachypnea with blood coming from her PEG tube. Prior to the patient 's discharge, she was stable and doing as well as could be expected. The patient evidently went home and had an episode of shortness of breath. Prior to the patient's discharge on 11/18, she did not qualify for home O2. Patient then came to the emergency department due to her shortness of breath. She also developed some confusion. The CTA was ordered, which did not find a PTE, but did find profound bilateral pleural effusions. The patient has now been admitted to the ICU for close monitoring. PAST MEDICAL HISTORY: 1. Diabetes mellitus type 2. 2. Hypertension. 3. Hyperlipidemia. 4. Ovarian carcinoma, stage IV. PAST SURGICAL HISTORY: 1. Tubal ligation. 2. Cholecystectomy. 3. Umbilical hernia repair. 4. Hysterectomy. 5. Appendectomy. SOCIAL HISTORY: Patient denies any tobacco, alcohol or illicit drug use. She has a very supportive family. She always has family at bedside. She typically lives with her . FAMILY HISTORY: Positive for diabetes, hypertension and heart disease. She also has a family history of stroke. REVIEW OF SYSTEMS: As per the HPI. All else is negative and noncontributory. PHYSICAL EXAMINATION: Vital Signs: Temperature 98.4, heart rate 119, respirations 23, blood pressure 159/77, O2 saturations 96% on nasal cannula. General: female, lying in hospital bed in the ICU. There is no family at bedside. She is in mild respiratory distress. HEENT: Head normocephalic, atraumatic. Eyes: Pupils equal, round, reactive. Ears, nose, throat, neck, and mouth: Oral mucosa appears to be normal. Trachea is midline. Gross auditory acuity is intact. Cardiovascular: Tachycardia, but with regular rhythm. Respiratory: Patient is tachypneic with decreased breath sounds bilaterally, secondary to pleural effusion. Gastrointestinal: Abdomen is distended. She does have palpable masses as well. Musculoskeletal: No bony abnormalities. Extremities: Patient has no lower extremity edema. Neurologic: Patient is alert at this time. She appears to be oriented. No obvious focal motor deficits. LABS AND STUDIES: White blood cells 8.46, hemoglobin 10.5, hematocrit 32.6, platelet count 303. Sodium 142, potassium 3.9, chloride 102, CO2 of 24, BUN 29, creatinine 0.9, glucose 302. Alkaline phosphatase 110. AST and ALT [address] angio shows her to have no pulmonary embolism, but large bilateral pleural effusions and then thoracentesis ultrasound. She has undergone a successful right ultrasound-guided thoracentesis. She did have an abdominal flat and upright, which did show her to have a small bowel obstruction. ASSESSMENT AND PLAN: 1. Ovarian carcinoma, stage IV. The patient has only received that 1 dose of chemotherapy. We may consider giving chemotherapy during this hospitalization. This will depend on the patient's hospital course and overall state. No chemo plan at this present moment. 2. Bilateral pleural effusions, status post thoracentesis. Pulmonology has been consulted. The plan is for a pleurodesis. We have discussed previously the possibility of a PleurX catheter. The patient does have bilateral pleural effusions. 3. Small bowel obstruction. Patient has the PEG tube in place. She will continue to use this. Will also continue TPN for nutrition. 4. Respiratory distress secondary to pleural effusion. Status post thoracentesis as per above. Continue O2 support. Monitor closely. I want to thank you for consulting us on Ms. Bolton. We will continue to follow along and adjust our treatment plan per the patient's hospital course. Dictated by JEANNIE Samano for Dahlia Albert MD cc: Dahlia Albert MD [facility]
[2016-11-19] MEDS: HUMALOG SUBQ SCH ×2 (16:55→21:32)
[2016-11-19] MEDS ORDERED: TPN ELECTROLYTES 20 ML, MAGNESIUM SULFATE 5 MEQ, POTASSIUM CHLORIDE 35 MEQ, M.V.I.-12 1... IV SCH ×8 (17:00)
[2016-11-19] MEDS: LIPOSYN 20% 250 ML IV SCH (17:29)
[2016-11-19] MEDS: DILAUDID IV PRN ×2 (18:00→21:21)
--- NOTE | 2016-11-19 18:08 | CONSULTATION ---
DATE OF CONSULTATION: 11/19/2016 HISTORY OF PRESENT ILLNESS: This 76-year-old female with metastatic ovarian cancer has malignant bowel obstruction with PEG being managed palliatively. She is undergoing some chemotherapy. She has also had bilateral recurrent malignant effusions that required serial thoracentesis. She has been in and out of the hospital with multiple complaints and was recently discharged. However was readmitted for shortness of breath recently yesterday through ICU. She had ultrasound-guided thoracentesis on the right with good improvement of the effusion but has a persistent large effusion noted on the left side. She is requiring oxygen. PAST MEDICAL HISTORY: 1. Metastatic ovarian cancer. 2. Hypertension. 3. Diabetes. 4. Hyperlipidemia. PAST SURGICAL HISTORY: Tubal ligation, cholecystectomy, umbilical hernia, hysterectomy, appendectomy. No thoracic surgeries other than the thoracentesis. SOCIAL HISTORY: No tobacco, alcohol, or drugs. She does have family. None of them are here yet today. They have all gone to work. is present as well. FAMILY HISTORY: Diabetes, hypertension but no cancer. REVIEW OF SYSTEMS: Ten point negative except for what is mentioned HPI. PHYSICAL EXAMINATION: Vital Signs: Temperature 98.9 degrees, pulse has been in the low 100s, blood pressure 144/61. O2 saturation 95% on 2 L. General: She is alert, thin cachectic appearing lady. Cardiovascular: Sinus tach. Pulmonary: Shallow respirations but does not seem in distress. She is on room air. She has bilateral Band-Aids in place from previous thoracentesis. Abdomen: Distended. Had a PEG tube in place with bilious output. Integument: Otherwise warm, dry. LABS: Reviewed. White count is 8, hematocrit 32. INR is 1.15. ABG 7.46, 37, 72, 26. Creatinine 0.9. Glucose 302. Lactate is 2.5. Troponins are undetectable. ASSESSMENT AND PLAN: This is a 76-year-old female with metastatic ovarian cancer and bilateral malignant effusions. She has required multiple bilateral thoracentesis. Pulmonary angiogram upon admission this time showed a recurrent effusion. She has had a right-sided thoracentesis with overall for the most part, resolution of this effusion but persistent large effusion left. I have attempted to have a discussion with the patient about this but she wants to wait until all her family is present and they will be here tomorrow and I will be happy to talk to them then. I think a good option would be to place a Pleurx catheter as opposed to a talc pleurodesis. This would be less invasive for her and give her the ability to control her fluid at home as are working towards a palliative approach at this point. I think she has a large support structure that would be able to handle this. As far as options we could place bilateral Pleurx catheters or attempt to place a tube on one side and see how she does potentially avoiding a 2nd tube although I think she will reaccumulate fluid bilaterally. Since the right chest is dry we would not be able to place a tube here until she had at least some buffer of fluid to facilitate placement of catheter but I think we could be easily place a Pleurx catheter on the left side. Potentially if the fluid accumulation over the weekend we could place bilateral tubes on Wednesday. I will talk to family and see what their decision is tomorrow but would not plan on surgery tomorrow. cc: Teri Dunbar MD
[2016-11-19] MEDS: DULCOLAX PR SCH (21:26)
[2016-11-20] MEDS: DILAUDID IV PRN ×6 (01:44→23:38)
[2016-11-20] MEDS: DUONEB (A & A) INH SCH ×4 (03:35→15:39)
[2016-11-20 05:00] LABS: ALLEN TEST YES; BE 1.6 mmoll (-3.0-3.0); BLOOD TYPE ARTERIAL; DRAW SITE R RADIAL; O2(CT) 10.8 mL/dL (15.0-23.0); PCO2(98.6) 38 mmHg (35-45); PO2(98.6) 67 mmHg (60-100); SAMPLE BLOOD; SAO2 97.9 % (95.0-100.0); pH(98.6) 7.44 (7.35-7.45)
[2016-11-20 05:01] LABS: MODALITY CANNULA
[2016-11-20] MEDS: CARAFATE LIQUID PO SCH ×4 (05:31→21:11)
[2016-11-20] MEDS: ZOSYN 3.375 GM/NS 3.375 GM/50 ML IVPB IV SCH ×3 (05:31→16:00)
[2016-11-20 05:50] LABS: HEMATOCRIT 26.3 % (37.0-47.0); HEMOGLOBIN 8.6 g/dL (12.0-16.0); MCH 24.3 PG (27-31); MCHC 32.7 g/dL (33-37); MCV 74.3 FL (81-99); MPV 11.3 FL (7.4-10.4); RBC 3.54 XMIL (4.2-5.4)
[2016-11-20 05:59] LABS: CALCIUM 8.5 mg/dL (8.8-10.2); POTASSIUM 4.1 mmol/L (3.5-5.1)
[2016-11-20] MEDS: HUMALOG SUBQ SCH ×4 (06:33→21:04)
--- NOTE | 2016-11-20 07:21 | Diag Imaging Result Doc PS360 ---
EXAM: CHEST-PORTABLE HISTORY: dyspnea TECHNIQUE: AP portable at 0500 COMMENT: there are bilateral pleural effusions more so on the left than the right. There has been appreciable increase in the amount of pleural fluid on the right since the previous postthoracentesis images of 11/19/2016. IMPRESSION: Worsened right pleural effusion. Electronically signed by Trung Trinh 11/20/2016 7:19 AM
[2016-11-20 07:53] LABS: PREALBUMIN 8.1 mg/dL (20-40)
[2016-11-20] MEDS: LANTUS SUBQ SCH (10:15)
[2016-11-20] MEDS: SODIUM CHLORIDE 0.9% INJ SCH (12:16)
[2016-11-20] MEDS: PROTONIX IV SCH (12:16)
[2016-11-20] MEDS: LOVENOX SUBQ SCH (12:16)
--- NOTE | 2016-11-20 15:10 | PROGRESS NOTE ---
DATE: 11/20/2016 SUBJECTIVE: No events overnight. Still a little short of breath and has some chest fullness on the left side and a cough. OBJECTIVE: Vital signs: Temperature 97.7 degrees, pulse 100s to 1-teens, blood pressure 130/63, O2 saturation 97% on 2 L. General: She is alert, in no acute distress on supplemental O2. Cardiovascular: Sinus tachycardia. LABS: White count is 9. Chest x-ray this morning shows increasing right-sided effusion and stable left. ASSESSMENT AND PLAN: This is a 76-year-old female with metastatic ovarian cancer and malignant obstruction who has recurrent malignant effusions bilaterally requiring serial thoracenteses. This reaccumulates quickly requiring readmissions now to the intensive care unit. I have had long discussion with the son and regarding placement of Pleurx catheters for palliation of the symptoms. Dr. Albert was here and agrees. We talked about the risks and benefits of the surgery versus ongoing paracentesis. They state she feels quite well after the thoracentesis and her strength gets better for a period of a couple days until fluid reaccumulation then she is fatigued and dyspneic again. I think she would benefit greatly from these and this might help facilitate her being well enough and out of the hospital long enough to get chemotherapy. We have tentatively posted her. She has an effusion on the left and the right side is increasing but we have tentatively posted her for left-sided PleurX catheter on Wednesday, possible bilateral if the fluid reaccumulates. Will talk with family again at that time. cc: Teri Dunbar MD [facility]
[2016-11-20] MEDS: TPN ELECTROLYTES 20 ML, MAGNESIUM SULFATE 5 MEQ, POTASSIUM CHLORIDE 35 MEQ, M.V.I.-12 1... IV SCH ×8 (16:04)
[2016-11-20] MEDS: LIPOSYN 20% 250 ML IV SCH (16:05)
[2016-11-20] MEDS ORDERED: NS NEB INH SCH (17:00)
--- NOTE | 2016-11-20 17:20 | PROGRESS NOTE ---
DATE: 11/20/2016 SUBJECTIVE: The patient is resting comfortably in bed. She is awake and alert. She had a right- sided thoracentesis done yesterday and states that her shortness of breath is improved. OBJECTIVE: Vital Signs: Temperature 97 degrees, blood pressure 116/51, heart rate 117, respirations 21, O2 saturations 96% on 2 L nasal cannula. General: This is a chronically ill- appearing, elderly female, lying in bed, in no acute distress. Head: Normocephalic, atraumatic. Heart: S1, S2. Normal. Tachycardic. Lungs: Diminished breath sounds bilaterally at the bases. Abdomen: Positive bowel sounds. Soft. Distended. Extremities: +1 edema. No cyanosis. No calf tenderness. Neurologic: The patient is alert and oriented x3. LABS: White blood cell count 9, hemoglobin 8.6, hematocrit 26, platelets 263, 000. Sodium 141, potassium 4.1, chloride 106, CO2 22, BUN 28, creatinine 1.1. Glucose 213, calcium 8.5, phosphorus 4, AST 41. ASSESSMENT AND PLAN: 1. Recurrent bilateral malignant pleural effusions secondary to ovarian cancer. The patient and her family had a discussion with both Dr. Dunbar and Dr. Albert and have agreed to move forward with pleurx catheter placement on Wednesday. We will continue with supplemental oxygen and monitor the patient closely in the ICU. 2. Ovarian cancer with peritoneal carcinomatosis. Aware. Dr. Albert is following. 3. Nutrition. Continue on TPN. 4. Status post decompressive PEG tube placement. Aware. 5. Gastrointestinal prophylaxis. Continue on IV Protonix. 6. Deep vein thrombosis prophylaxis. Continue on Lovenox. cc: Danni Liang MD [facility]
[2016-11-20] MEDS: DULCOLAX PR SCH (21:04)
[2016-11-20] MEDS: XOPENEX NEB INH SCH (21:15)
[2016-11-21] MEDS ORDERED: VANCOMYCIN 1,150 MG in NS 250 ML IV SCH (01:00)
[2016-11-21] MEDS: DILAUDID IV PRN ×5 (03:05→21:51)
[2016-11-21] MEDS: XOPENEX NEB INH SCH ×4 (04:00→21:19)
[2016-11-21] MEDS: CARAFATE LIQUID PO SCH ×3 (04:00→17:40)
[2016-11-21] MEDS: HUMALOG SUBQ SCH ×5 (06:04→21:49)
[2016-11-21 08:49] LABS: HEMATOCRIT 27.5 % (37.0-47.0); HEMOGLOBIN 8.9 g/dL (12.0-16.0); MCH 23.9 PG (27-31); MCHC 32.4 g/dL (33-37); MCV 73.9 FL (81-99); MPV 11.7 FL (7.4-10.4); RBC 3.72 XMIL (4.2-5.4)
[2016-11-21 08:51] LABS: AGAP 11; BUN 25 mg/dL (8-22); CALCIUM 8.7 mg/dL (8.8-10.2); CHLORIDE 106 mmol/L (98-107); COSMO 297; MAGNESIUM 2.2 mg/dL (1.5-2.7); POTASSIUM 3.9 mmol/L (3.5-5.1); SODIUM 143 mmol/L (136-145); TCO2 26 mmol/L (25-35)
--- NOTE | 2016-11-21 09:00 | Diag Imaging Result Doc PS360 ---
EXAM: CHEST-PORTABLE INDICATION: dyspnea TECHNIQUE: One view COMPARISON: 11/20/2016 FINDINGS: Right PICC line is in stable position. Bilateral pleural effusions, largest on the left, are again noted. The left effusion may be marginally larger than the previous study. There is stable adjacent atelectasis and/or infiltrate at the lung bases. There is suggestion of interstitial edema. No new consolidations are appreciated. The cardiac silhouette is stable. IMPRESSION: Marginally larger left pleural effusion. Stable chest, otherwise. Electronically signed by Walter Pelayo 11/21/2016 8:58 AM
[2016-11-21] MEDS: LANTUS SUBQ SCH (09:32)
--- NOTE | 2016-11-21 11:08 | PROGRESS NOTE ---
DATE: 11/21/2016 SUBJECTIVE: The patient states that she had a lot of pain last night at the site of her recent thoracentesis. OBJECTIVE: Vital Signs: Temperature 99 degrees, blood pressure 147/67, heart rate 112, respirations 20, and O2 saturation is 98% on 2L nasal cannula. General: This is an elderly female, lying in bed in no acute distress. Head: Normocephalic, atraumatic. Heart: S1 and S2 normal. Regular rate and rhythm. Lungs: Diminished breath sounds at the bases. Clear at the upper lobes. Abdomen: Positive bowel sounds. Soft. Distended. Nontender. Extremities: Trace pedal edema. No cyanosis. No calf tenderness. Neurologic: The patient is alert oriented x3. LABORATORIES: White blood cell count 8.2, hemoglobin 8.9, hematocrit 27, platelets 358,000. Sodium 143, potassium 3.9, chloride 106, CO2 of 26, BUN 25, creatinine 1, glucose 236. ASSESSMENT AND PLAN: 1. Recurrent malignant bilateral pleural effusions secondary to ovarian cancer. Will continue to monitor the patient closely. The patient is a scheduled to undergo PleurX catheter placement on Wednesday. 2. Ovarian cancer with peritoneal carcinomatosis. Aware. 3. Nutrition. Continue on TPN. 4. Small-bowel obstruction, status post decompressive PEG tube placement. Aware. 5. Gastrointestinal prophylaxis. Continue on IV Protonix. 6. Deep vein thrombosis prophylaxis. Continue on Lovenox. cc: Danni Liang MD
[2016-11-21 11:33] LABS: ALBUMIN 2.8 g/dL (3.5-5.0); ALKALINE PHOSPHATASE 104 U/L (32-104); DIRECT BILIRUBIN < 0.20 mg/dL (0.00-0.20); GOT 30 U/L (10-30); GPT 45 U/L (10-36); TOTAL BILIRUBIN 0.45 mg/dL (0.20-1.00); TOTAL PROTEIN 7.1 g/dL (6.3-8.3)
[2016-11-21] MEDS: PROTONIX IV SCH (13:11)
[2016-11-21] MEDS: SODIUM CHLORIDE 0.9% INJ SCH (13:11)
[2016-11-21] MEDS: LOVENOX SUBQ SCH (13:11)
[2016-11-21] MEDS: TPN ELECTROLYTES 20 ML, MAGNESIUM SULFATE 5 MEQ, POTASSIUM CHLORIDE 35 MEQ, M.V.I.-12 1... IV SCH ×16 (15:40→17:32)
[2016-11-21] MEDS: LIPOSYN 20% 250 ML IV SCH ×2 (15:45→17:33)
--- NOTE | 2016-11-21 16:45 | CONSULTATION ---
DATE OF CONSULTATION: 11/21/2016 REFERRING PHYSICIAN: Dr. Danni Liang M.D. PRIMARY ONCOLOGIST: Dr. Dahlia Albert M.D. INDICATION FOR CONSULTATION: 1. Pain around the PEG site. 2. Small bowel obstruction secondary to metastatic ovarian cancer with omental caking. HISTORY OF PRESENT ILLNESS: The patient is a very pleasant 76-year-old female who was admitted from 10/23 to 11/18/2016 for management of small bowel obstruction and bilateral pleural effusions secondary to ovarian cancer. She underwent placement of decompressive PEG which she tolerated well. Her clinical course was complicated by recurrent pleural effusions which have required repeat thoracentesis. She is currently on home TPN for nutrition support along with decompressive PEG. She was discharged on 11/18/2016. She was readmitted on 06/2016 with re- accumulation of her bilateral pleural effusions that resulted in severe dyspnea , tachycardia and fatigue. From a GI perspective, she notes increased gas and pressure in her chest despite decompression with the tube. In addition, she has a firmness around her G-tube which is new since last admission. We are asked to participate in her care. PAST MEDICAL HISTORY: 1. Diabetes. 2. Hypertension. 3. Hyperlipidemia. 4. Small bowel obstruction secondary to ovarian cancer. 5. 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 6. Bilateral pleural effusions. 7. Severe erosive esophagitis. 8. Hiatal hernia. 9. Schatzki's ring. 10. Erosive gastritis. PAST SURGICAL HISTORY: 1. Tubal ligation. 2. Cholecystectomy. 3. Hiatal hernia repair. 4. Hysterectomy. 5. Appendectomy. 6. Repeat thoracentesis. FAMILY HISTORY: Positive for diabetes and hypertension as well as heart disease. There is no history of REEL CUTTER or GI malignancies. SOCIAL HISTORY: Negative for alcohol, tobacco or recreational drug use. REVIEW OF SYSTEMS: Positive for gas in the chest that resolves with belching. She notes interval improvement in her constipation and she is currently having spontaneous bowel movements. She denies nausea with vomiting. MEDICATION ALLERGIES: 1. Erythromycin. 2. Doxycycline. 3. Hydrocodone. HOME MEDICATIONS: 1. Carafate suspension. 2. Zofran. 3. Lantus. 4. Dilaudid. 5. Bisacodyl. 6. Parenteral nutrition. PHYSICAL EXAMINATION: On exam, she is uncomfortable with mild distress. Her blood pressure is 136/51, pulse of 144, respiration 27-30. Temperature is 98.8 degrees. HEENT: Is slightly dry. Her conjunctivae are normal. Her sclerae are anicteric. Oropharyngeal mucosa membrane is dry. Pulmonary: She has clear breath sounds anteriorly. However, she has marked decreased breath sounds posteriorly bilaterally. There are occasional scattered rales in the bases. Cardiovascular: Reveals tachycardia with a regular rhythm. There are no gallops. Murmurs or rubs. Abdominal Exam: Reveals hypoactive bowel sounds. The abdomen is distended and firm with palpable tumor nodules under the skin. She has a decompressive PEG in the left upper quadrant. The skin appears clean and dry. The area of nodularity that was noticed by the nurses is firm and palpable and feels consistent with extension of her tumor. There is no evidence of exudate, erythema or rubor to suggest an infection. Extremities: Bilaterally are negative for edema. OBJECTIVE DATA: Reveals a hemoglobin of 8.9, with hematocrit of 27.5, and a white count of 8.23. She has 358,000 platelets. Sodium is 143, potassium 3.9, chloride 106, CO2 26, BUN 25, creatinine 1.0 with a glucose of 236. Calcium is 8.7, total bilirubin 0.45, phosphorus 3.3 , direct bilirubin less than 0.20, magnesium 2.2, AST 30, ALT 45, alkaline phosphatase 104, total protein 7.1, albumin 2.8. IMPRESSION: 1. Small bowel obstruction secondary to metastatic ovarian cancer. 2. Protein calorie malnutrition. 3. Eructations. 4. Constipation, improved. RECOMMENDATION: 1. Continue parenteral nutrition. However, we may need to monitor her volume status as her urine output is decreasing. This suggests that she may be intravascularly depleted especially in light of the repeat thoracentesis. 2. It is noted that she is scheduled to have a chest tube placed on Wednesday for management of the recurrent pleural effusions. We will need to match her output to avoid intravascular volume contraction as she remains tachycardic at baseline. 3. From a GI perspective, the tube rotates freely and appears to drain appropriately. Therefore, I would continue low intermittent suction. 4. To help manage the eructations, I will begin simethicone chewable tablets 4 times a day. 5. She is currently receiving Carafate for the severe erosive esophagitis. Please be sure to avoid co-administration of any medication with the Carafate as it will bind the other medication and activating it. 6. Because of her gas and upper GI symptoms, I recommend increasing her Protonix to 40 mg IV q.12 hours. 7. The patient had severe constipation last admission which was likely opioid induced. Currently, she is having spontaneous bowel movements. I would monitor her stool output and consider Dulcolax suppository as needed for constipation if she goes more than 24 hours without defecation. 8. Additional recommendations to follow based on her clinical course. cc: MD Danni Daniel MD Heather Shah, MD MTDD
[2016-11-21] MEDS: MYLICON PO SCH ×2 (16:48→21:50)
[2016-11-21] MEDS: DULCOLAX PR SCH (21:49)
[2016-11-22] MEDS: CARAFATE LIQUID PO SCH ×4 (00:01→17:40)
[2016-11-22] MEDS: PROTONIX IV SCH ×3 (00:02→12:38)
[2016-11-22] MEDS: DILAUDID IV PRN ×6 (01:30→21:44)
[2016-11-22] MEDS: XOPENEX NEB INH SCH ×4 (03:35→21:59)
[2016-11-22] MEDS: HUMALOG SUBQ SCH ×4 (06:03→21:06)
[2016-11-22 06:16] LABS: HEMATOCRIT 26.5 % (37.0-47.0); HEMOGLOBIN 8.5 g/dL (12.0-16.0); MCH 23.9 PG (27-31); MCHC 32.1 g/dL (33-37); MCV 74.4 FL (81-99); MPV 10.9 FL (7.4-10.4); RBC 3.56 XMIL (4.2-5.4)
[2016-11-22 06:28] LABS: AGAP 13; BUN 26 mg/dL (8-22); CALCIUM 8.7 mg/dL (8.8-10.2); CHLORIDE 108 mmol/L (98-107); COSMO 300; MAGNESIUM 2.1 mg/dL (1.5-2.7); POTASSIUM 4.3 mmol/L (3.5-5.1); SODIUM 145 mmol/L (136-145); TCO2 24 mmol/L (25-35)
[2016-11-22] MEDS: LANTUS SUBQ SCH (08:45)
[2016-11-22] MEDS: MYLICON PO SCH ×4 (08:46→21:07)
[2016-11-22] MEDS ORDERED: SODIUM CHLORIDE 0.9% 10 ML ONE (11:53)
[2016-11-22] MEDS: LOVENOX SUBQ SCH (12:38)
[2016-11-22] MEDS: TPN ELECTROLYTES 20 ML, MAGNESIUM SULFATE 5 MEQ, POTASSIUM CHLORIDE 35 MEQ, M.V.I.-12 1... IV SCH ×8 (15:06)
[2016-11-22] MEDS: LIPOSYN 20% 250 ML IV SCH ×2 (15:09→16:17)
--- NOTE | 2016-11-22 16:58 | PROGRESS NOTE ---
DATE: 11/22/2016 SUBJECTIVE: The patient is resting comfortably in bed. No acute events noted overnight. OBJECTIVE: Vital Signs: Temperature 99 degrees, blood pressure 111/66, heart rate 117, respirations 18, O2 saturations 98% on 2 L nasal cannula. General: This is a elderly female lying in bed in no acute distress. Head: Normocephalic, atraumatic. Heart: S1, S2. Normal. Regular rate and rhythm. Lungs: Diminished breath sounds on the left. Abdomen: Positive bowel sounds. Soft. Distended. Extremities: Trace pedal edema. No cyanosis. No calf tenderness. Neuro: The patient is alert, oriented x3. LABS: White blood cell count 6.7, hemoglobin 8.5, hematocrit 26, platelets 425 ,000. Sodium 145, potassium 4.3, chloride 108, CO2 24, BUN 26, creatinine 1, glucose 222. ASSESSMENT AND PLAN: 1. Recurrent bilateral malignant pleural effusions. The patient is scheduled to undergo PleurX catheter placement tomorrow. Continue on supplemental oxygen. 2. Ovarian cancer with peritoneal carcinomatosis. Aware. Oncology is following. 3. Status post decompressive percutaneous endoscopic gastrostomy tube placement. Continue on low intermittent suction. 4. Nutrition. Continue on TPN. 5. Gastrointestinal prophylaxis. Continue on IV Protonix. 6. Deep vein thrombosis prophylaxis. Will hold the Lovenox in anticipation of the procedure planned for tomorrow. cc: Danni Liang MD [facility]
[2016-11-22] MEDS ORDERED: BLISTEX MEDICATED BERRY LIP BALM TOP PRN (18:13)
--- NOTE | 2016-11-22 18:47 | PROGRESS NOTE ---
DATE: 11/22/2016 SUBJECTIVE: Overnight, the patient states that she feels better after beginning simethicone tablets 4 times a day. She reports less chest pressure and gas in her upper abdomen. She anxiously awaits placement of her chest tube tomorrow to manage her recurrent pleural effusions. She denies other complaints. OBJECTIVE: General: On exam, she is in no acute distress. Vital signs: Her blood pressure is 111/66, pulse of 117, respiration 18, temperature of 99 degrees. HEENT: Negative for jaundice. Her conjunctivae are normal. Her oropharyngeal mucosal membranes slightly dry. Pulmonary: Lungs are clear anteriorly, but she has decreased breath sounds in the bases posteriorly. There is an occasional rale heard. Cardiovascular: She has a resting tachycardia with no murmurs or gallops. Abdominal: Reveals hypoactive bowel sounds. The abdomen is firm and distended with a PEG in the left upper quadrant. The PEG rotates freely. There has been no interval change since her last exam. Extremities: Bilaterally are negative for edema. OBJECTIVE DATA: Reveals hemoglobin of 8.5 with hematocrit of 26.5 and a white count of 7.41. She has 425,000 platelets. This blood count has been stable overnight. Her sodium is 145, potassium 4.3, chloride 108, CO2 24, BUN 26, creatinine 1 with a glucose of 222. Calcium is 8.7, phosphorus 3.4, magnesium 2.1. RECOMMENDATION: 1. Continue Protonix 40 mg intravenously q.12 hours. 2. Continue Carafate orally 1 g q.6 hours. 3. Continue parenteral nutrition. 4. Continue decompressive PEG tube drainage. 5. Await pulmonary catheters to manage her pleural effusions. 6. If she does not have a bowel movement in the next 24 hours, I would consider Dulcolax suppository or at bedtime. I will reassess this in the am. The patient is currently receiving Dulcolax suppository at bedtime as needed. I would continue that on a nightly basis, not prn. 7. Additional recommendations to follow based on her clinical course. cc: MD Dahlia Daniel MD R. Tyler Harney, MD Katherine Takundwa, MD MTDD
[2016-11-22] MEDS: DULCOLAX PR SCH (21:07)
[2016-11-23] MEDS: PROTONIX IV SCH ×2 (00:48→12:58)
[2016-11-23] MEDS: CARAFATE LIQUID PO SCH ×5 (00:48→23:14)
[2016-11-23] MEDS: DILAUDID IV PRN ×5 (02:26→20:55)
[2016-11-23] MEDS: XOPENEX NEB INH SCH ×4 (03:02→22:29)
[2016-11-23] MEDS: HUMALOG SUBQ SCH ×5 (07:27→22:04)
[2016-11-23 07:44] LABS: HEMOGLOBIN 9.6 g/dL (12.0-16.0); MCH 23.8 PG (27-31); MCV 76.9 FL (81-99); MPV 11.4 FL (7.4-10.4); RBC 4.03 XMIL (4.2-5.4)
--- NOTE | 2016-11-23 08:06 | Diag Imaging Result Doc PS360 ---
CHEST-PORTABLE - 11/23/2016 INDICATION: abnormal exam TECHNIQUE: COMPARISON: 11/21/2016 FINDINGS: There is a stable moderate to large left pleural effusion. Grossly stable small right pleural effusion. Stable right PICC line. Stable cardiomegaly. IMPRESSION: No change from prior. Electronically signed by Mj Shaffer 11/23/2016 8:04 AM
[2016-11-23 08:23] LABS: AGAP 14; BUN 26 mg/dL (8-22); CALCIUM 8.8 mg/dL (8.8-10.2); CHLORIDE 106 mmol/L (98-107); COSMO 301; MAGNESIUM 2.1 mg/dL (1.5-2.7); POTASSIUM 4.6 mmol/L (3.5-5.1); SODIUM 145 mmol/L (136-145); TCO2 25 mmol/L (25-35)
[2016-11-23] MEDS ORDERED: HUMALOG SUBQ SCH (08:30)
[2016-11-23] MEDS ORDERED: INSULIN PEN NEEDLES ONE (08:43)
[2016-11-23] MEDS: LANTUS SUBQ SCH (08:44)
[2016-11-23] MEDS: MYLICON PO SCH ×4 (08:52→20:55)
--- NOTE | 2016-11-23 11:25 | PROGRESS NOTE ---
DATE: 11/23/2016 SUBJECTIVE: The patient states that she has been having some pain in her left side, but otherwise has no complaints. OBJECTIVE: Vital Signs: Temperature 98, blood pressure 130/72, heart rate 121, respiratory rate 16. O2 saturations 96% on 2 L nasal cannula. General: This is a chronically ill-appearing, elderly female, sitting at the edge of the bed, in no acute distress. Head: Normocephalic, atraumatic. Heart: S1, S2. Normal, tachycardic. Lungs: Diminished breath sounds in the left lung field. No crackles, no rales. Abdomen: Positive bowel sounds, soft. Mildly distended. Nontender. Extremities: Trace pedal edema. No cyanosis. No calf tenderness. Neurologic: The patient is alert and oriented x3. LABS: White blood cell count 6.2, hemoglobin 9.6, hematocrit 31, platelets 424. Sodium 145, potassium 4.6, chloride 106, CO2 of 25, BUN 26, creatinine 1, glucose 238. Phosphorus 3.1, magnesium 2.1. ASSESSMENT AND PLAN: 1. Recurrent bilateral malignant pleural effusions. The patient is scheduled to undergo PleurX catheter placement today. Continue with supplemental oxygen. 2. Ovarian cancer with peritoneal carcinomatosis. Aware. Oncology is following. 3. Status post decompressive PEG tube placement. Continue on low intermittent suction. 4. Nutrition. Continue on total parenteral nutrition. 5. Gastrointestinal prophylaxis. Continue on IV Protonix. 6. Deep vein thrombosis prophylaxis. Continue with sequential compression devices. Will resume Lovenox later on today. cc: Danni Liang MD
[2016-11-23] MEDS: SODIUM CHLORIDE 0.9% INJ SCH (12:58)
[2016-11-23] MEDS ORDERED: KEFZOL 1 GM/D5W 1 GM/50 ML IVPB ONE (13:53)
[2016-11-23] MEDS ORDERED: FENTANYL ONE (14:39)
[2016-11-23] MEDS ORDERED: DIPRIVAN 1% ONE (14:40)
[2016-11-23] MEDS: DILAUDID ONE ×3 (14:46→17:24)
--- NOTE | 2016-11-23 14:56 | Diag Imaging Result Doc PS360 ---
EXAM: CHEST-PORTABLE HISTORY: chest tube placement TECHNIQUE: COMPARISON: 11/23/2016 at 5:00 AM FINDINGS: There is a new catheter overlying the left chest. This appears to enter The left costophrenic angle. The tip is near the apex. No definite change in the size of the pleural effusion. No change in the right-sided PICC line. Cardiomegaly remains. There is a right-sided effusion. IMPRESSION: Interval placement of a left-sided chest tube with the tip near the apex. No interval decrease in size of the left effusion. Electronically signed by Markel Matta 11/23/2016 2:54 PM
--- NOTE | 2016-11-23 14:56 | PROGRESS NOTE ---
DATE: 11/23/2016 SUBJECTIVE: Feeling a bit better she says as far as her work of breathing. Otherwise no events overnight. OBJECTIVE: Vital signs: Temperature this morning 98.2, pulse 135, blood pressure 153/74, oxygen saturation 96% on 2 L. I reviewed her labs and her x-ray. White count 6, hematocrit 31, platelets 424,000. Chest x- ray shows stable left effusion with a slightly enlarging right effusion. General: She is alert. She is on nasal cannula O2. Cardiovascular: Sinus tach. She is slightly tachypneic on observation. ASSESSMENT AND PLAN: This is a 76-year-old female with metastatic ovarian cancer, recurrent bilateral malignant effusion. She is symptomatic despite right-side thoracentesis although she is somewhat improved. I have had long discussion with the patient and her family, her son and her regarding risks, benefits, alternatives to PleurX catheter placement. They consent like to proceed today with left-sided PleurX catheter placement. We talked about the possibility of requiring a right-sided tube for bilateral tubes, bleeding, infection and other complications associated with the tube. However we do think this would benefit her and potentially help keep her out of the hospital so she continue receiving her therapy as these recurrent admissions are usually related to recurrent effusions and respiratory symptoms. Will proceed today for left- sided Pleurx catheter placement. Will keep it Pleur-Evac today and remove suction tomorrow. cc: Teri Dunbar MD
[2016-11-23] MEDS ORDERED: NEO-SYNEPHRINE ONE (15:09)
[2016-11-23] MEDS: TPN ELECTROLYTES 20 ML, MAGNESIUM SULFATE 5 MEQ, POTASSIUM CHLORIDE 35 MEQ, M.V.I.-12 1... IV SCH ×8 (15:49)
[2016-11-23] MEDS: LIPOSYN 20% 250 ML IV SCH (15:49)
[2016-11-23] MEDS: DULCOLAX PR SCH (20:55)
--- NOTE | 2016-11-23 21:00 | OPERATIVE NOTE ---
PROCEDURE DATE: 11/23/2016 PREOPERATIVE DIAGNOSIS: Recurrent bilateral malignant pleural effusions. POSTOPERATIVE DIAGNOSIS: Recurrent bilateral malignant pleural effusions. PROCEDURE PERFORMED: Left side PleurX catheter placement. COMPLICATIONS: None. ESTIMATED BLOOD LOSS: Less than 1 mL. ANESTHESIA: MAC with local. INDICATIONS: A 76-year-old female with metastatic ovarian cancer who presents with recurrent bilateral pleural effusions with frequent readmissions for thoracenteses. She has recently undergone a right thoracentesis, but has a large left-sided pleural effusions as well. PleurX catheter is indicated for palliation of these effusions and to facilitate outpatient chemotherapy. OPERATIVE FINDINGS: There was a large volume of straw-colored left pleural fluid. OPERATIVE NOTE: Risks, benefits, alternatives discussed with the patient and her family and they consented to the procedure. She has preoperatively and surgery site was marked. She was taken to the operating room, placed in supine position. General anesthesia was induced. Preincisional antibiotics were administered. Left chest was prepped with chlorhexidine and draped in usual fashion. After a time-out was performed, we had preoperatively evaluated her images to localize a large area of fluid in relation to the tip of the scapula and found a rib space approximately 1-2 spaces below the inframammary fold. At this point, we infiltrated local anesthetic down to the level of the rib and over the top of the rib avoided the neurovascular bundle. We aspirated pleural fluid and injected the pleura here. At this point, using the pink introducer needle, we accessed the pleural cavity above the level of the rib, threaded a J-wire into the left chest and removed the needle. Then we measured a counterincision 5 cm anterior to this to facilitate manipulation by the patient and tunneled the catheter from this anterior incision posteriorly to the incision with the wire entering the chest, and then serially dilated up the tract into the chest over a wire using the Seldinger technique, ending with a peel-away introducer sheath. After each of these, we occluded the hole to prevent entry of air. We then threaded the catheter to the level proximal to all the fenestrations into the left chest. This was tidaling and there was fluid noted within the tube. I then closed the skin overlying the tube with an interrupted Monocryl suture. A pursestring suture was placed around the tube exit site and was secured to the skin with a silk suture. We then placed the tube to a sterile Pleur-evac device and a large continual stream of serous fluid was noted. She tolerated well. There is no identified complication. Transferred to PACU where a chest x-ray was obtained. I spoke with the family. Counts were correct x2. cc: Teri Dunbar MD
[2016-11-24] MEDS: PROTONIX IV SCH ×2 (01:02→12:46)
[2016-11-24] MEDS: DILAUDID IV PRN ×6 (01:02→22:27)
[2016-11-24] MEDS: SODIUM CHLORIDE 0.9% INJ SCH ×2 (01:02→12:46)
[2016-11-24] MEDS: XOPENEX NEB INH SCH ×5 (03:18→22:06)
[2016-11-24] MEDS: HUMALOG SUBQ SCH ×6 (03:55→22:28)
[2016-11-24] MEDS: CARAFATE LIQUID PO SCH ×4 (06:02→23:30)
[2016-11-24 07:42] LABS: AGAP 8; BUN 22 mg/dL (8-22); CALCIUM 8.5 mg/dL (8.8-10.2); CHLORIDE 108 mmol/L (98-107); COSMO 295; POTASSIUM 4.4 mmol/L (3.5-5.1); SODIUM 145 mmol/L (136-145); TCO2 29 mmol/L (25-35)
--- NOTE | 2016-11-24 07:58 | Diag Imaging Result Doc PS360 ---
EXAM: CHEST-PORTABLE - 11/24/2016 HISTORY: follow up effusion TECHNIQUE: Portable chest 0735 COMPARISON: 11/23/2016 FINDINGS: Left chest tube remains in place with its tip at the left apex. There is been interval substantial decrease in left pleural effusion and subsegmental atelectasis at the right base. Hazy airspace disease on the right appears of decreased mildly. There is a small to medium right pleural effusion. There is no pneumothorax identified. PICC remains in place. IMPRESSION: Substantial decrease in left pleural effusion. Mild decrease in hazy airspace disease on the right. Small to medium right pleural effusion. Electronically signed by Ron Harley 11/24/2016 7:55 AM
[2016-11-24] MEDS: LANTUS SUBQ SCH (08:36)
[2016-11-24] MEDS: MYLICON PO SCH ×4 (08:36→20:11)
--- NOTE | 2016-11-24 09:58 | PROGRESS NOTE ---
DATE: 11/24/2016 SUBJECTIVE: This patient is complaining today of diffuse abdominal discomfort, left-sided chest pain, and she feels sleepy today also. Her is at the bedside. All their questions were answered. OBJECTIVE: Vital Signs: Temperature 97.9 degrees, pulse 114, respiratory rate 19, blood pressure 118/54, oxygen saturation 99 on 2 L of nasal cannula. HEENT: Head normocephalic. No trauma. PERRLA. Neck: Supple. No JVD. No masses. Central trachea. Cardiovascular: RRR. Tachycardic. Chest: Decreased breath sounds at the bases with rales at the bases as well. She has a new catheter coming out from the left side of the chest that is working. Abdomen: Moderately distended. It is not soft. Positive bowel sounds but decreased. Extremities: There is 2 to 3+ lower extremity edema up to the thigh. Neurological Examination: The patient is alert, oriented x3. No focal neurological deficits. Laboratory: Sodium 145, potassium 4.4, chloride 108, bicarbonate 29, BUN 22, creatinine 0.9, glucose 159, calcium 8.5, phosphorus 3.1, magnesium 2. ASSESSMENT AND PLAN: 1. Recurrent bilateral malignant pleural effusions, status post PleurX catheter placement in the left side of the chest that is working and draining. Surgery department is following this patient. Continue supplemental oxygen. 2. Ovarian cancer with peritoneal carcinomatosis. Aware. The abdomen today is moderately distended with positive bowel sounds but decreased. Oncology department is following this patient. I do not think they are going to continue with some kind of treatment. This is stage IV. 3. Status post percutaneous endoscopic gastrostomy tube placement. We will continue with low intermittent suction. 4. Nutritional status. This patient is on total parenteral nutrition. Continue with the same management. I will allow to use ice chips today. 5. Gastrointestinal prophylaxis. Continue with Protonix. 6. Deep vein thrombosis prophylaxis. Continue with sequential compression devices and I will restart the Lovenox today. 7. I had a conversation with her . I explained the whole situation and the prognosis. Hopefully, we will meet together with the son and the rest of the family to discuss her further treatment. CRITICAL CARE TIME: 40 minutes. cc: Earl Kim MD
--- NOTE | 2016-11-24 11:35 | PROGRESS NOTE ---
DATE: 11/24/2016 SUBJECTIVE: Feels well. Her breathing is improved after her PleurX catheter placement yesterday. Otherwise, no events. Some persistent low-grade tachycardia. No fevers. Blood pressure has been okay. OBJECTIVE: The chest tube insertion site is clean, dry, intact. They have had to empty the PleurX after 1600 mL initially out and there is another 100+ in the box today. There is no air leak. It is to suction. Chest x-ray showed significant improvement in left sided effusion but there gradual increase of the right-sided effusion. She is now on 2 L of nasal cannula. ASSESSMENT: A 76-year-old female with malignant bilateral fusion related to ovarian cancer. Left pleural effusion is improved after PleurX catheter. Will monitor the right and her symptoms to determine if she needs a right side approach catheter as well. I would think over the next day she will have an adequate amount of fluid to facilitate this placement. We will continue to monitor her today, taking her tube off suction. We will check a chest x-ray later today and tomorrow. cc: Teri Dunbar MD
[2016-11-24] MEDS: LIPOSYN 20% 250 ML IV SCH (15:23)
[2016-11-24] MEDS: TPN ELECTROLYTES 20 ML, MAGNESIUM SULFATE 5 MEQ, POTASSIUM CHLORIDE 35 MEQ, M.V.I.-12 1... IV SCH ×8 (15:26)
--- NOTE | 2016-11-24 15:47 | Diag Imaging Result Doc PS360 ---
EXAM: CHEST-PORTABLE - 11/24/2016 HISTORY: pleurex removed from suction TECHNIQUE: Portable chest 1300 COMPARISON: Earlier exam of same day at 0735 FINDINGS: Left chest tube remains in place with its tip at the left apex. There is no discrete pneumothorax identified. There is subsegmental atelectasis at the left base. Hazy lower lung airspace disease and pleural fluid on the right appear stable. IMPRESSION: No discrete pneumothorax. Electronically signed by Ron Harley 11/24/2016 3:45 PM
[2016-11-24] MEDS: DULCOLAX PR SCH (20:11)
[2016-11-25] MEDS: PROTONIX IV SCH ×2 (01:56→13:24)
[2016-11-25] MEDS: SODIUM CHLORIDE 0.9% INJ SCH ×2 (01:56→13:24)
[2016-11-25] MEDS: HUMALOG SUBQ SCH ×6 (01:59→23:25)
[2016-11-25] MEDS: DILAUDID IV PRN ×6 (02:28→23:25)
[2016-11-25] MEDS: XOPENEX NEB INH SCH ×4 (04:05→21:17)
[2016-11-25] MEDS: CARAFATE LIQUID PO SCH ×4 (06:09→23:26)
[2016-11-25 06:34] LABS: BASO% 0.3 % (0.0-0.8); EOS# 0.12 X1000 (0.0-0.7); EOS% 1.7 % (0.0-10.0); HEMATOCRIT 29.9 % (37.0-47.0); HEMOGLOBIN 9.5 g/dL (12.0-16.0); IMM GRAN# 0.02 X1000 (0.0-0.04); IMM GRAN% 0.3 % (0.0-0.5); LYMPH# 1.11 X1000 (1.2-3.4); LYMPH% 15.9 % (20.5-51.1); MANUAL DIFF NEEDED? NO; MCH 23.8 PG (27-31); MCHC 31.8 g/dL (33-37); MCV 74.8 FL (81-99); MONO# 0.53 X1000 (0.11-0.59); MONO% 7.6 % (1.7-9.3); MPV 11.5 FL (7.4-10.4); NEUT% 74.2 % (42.2-75.2); PLT 526 X1000 (130-400)
[2016-11-25 06:41] LABS: AGAP 9; BUN 21 mg/dL (8-22); CALCIUM 8.5 mg/dL (8.8-10.2); CHLORIDE 108 mmol/L (98-107); COSMO 292; GOT 27 U/L (10-30); POTASSIUM 4.4 mmol/L (3.5-5.1); SODIUM 144 mmol/L (136-145); TCO2 27 mmol/L (25-35); TRIGLYCERIDES 52 mg/dL (35-135)
[2016-11-25 07:06] LABS: PREALBUMIN 7.8 mg/dL (20-40)
[2016-11-25] MEDS: LANTUS SUBQ SCH (08:40)
[2016-11-25] MEDS: MYLICON PO SCH ×4 (08:41→20:24)
[2016-11-25] MEDS: LOVENOX SUBQ SCH (08:41)
[2016-11-25] MEDS ORDERED: DULCOLAX PR SCH (09:00)
--- NOTE | 2016-11-25 09:56 | PROGRESS NOTE ---
DATE: 11/25/2016 SUBJECTIVE: This patient is still complaining about sleepiness and diffuse abdominal discomfort, her is at the bedside, and all their questions were answered. OBJECTIVE: Vital Signs: Temperature 98.6 degrees, pulse 108, respiratory rate 20, blood pressure 116/54, oxygen saturation 98 on 2 L of nasal cannula. HEENT: Head normocephalic. No trauma. PERRLA. Neck: Supple. No JVD. No masses. Central trachea. Cardiovascular: RRR. Tachycardic. Chest: Decreased breath sounds at the bases with some rales. She has a catheter on the left side of the chest. Abdomen: Moderately distended, hard. Positive bowel sounds, but decreased. Extremities: One to two plus lower extremity edema up to the thigh. Neurological examination: The patient is alert and oriented x3. No focal neurological deficits. LABORATORY: WBC 7, hemoglobin 9.5, hematocrit 29.9, platelets 526. Sodium 144, potassium 4.4, chloride 108, bicarbonate 27. BUN 21, creatinine 0.8, glucose 137, calcium 8.5. ASSESSMENT AND PLAN: 1. Recurrent bilateral malignant pleural effusion status post PleurX catheter placement in the left side of the chest, followed by Surgery Department. Continue with supplemental oxygen. 2. Ovarian cancer with peritoneal carcinomatosis. Aware. No changes compared with yesterday, abdomen is hard and moderately distended. Percutaneous endoscopic gastrostomy tube is working with low intermittent suction. Oncology Department is following this patient. I do not think this patient is going to get some kind of cancer treatment. She is a stage IV. 3. Status post percutaneous endoscopic gastrostomy tube placement. Continue with low intermittent suction. 4. Nutritional status. This patient is on total parenteral nutrition. Continue with the same management. 5. Gastrointestinal prophylaxis. Continue with Protonix. 6. Deep vein thrombosis prophylaxis. Continue with sequential compression devices and Lovenox. This patient has poor prognosis, and the patient and the family know about this, but the patient wants to keep fighting, they want to go to an LTAC. I will talk to Gastroenterology Department and Surgery Department to see if they have more recommendations or procedures. CRITICAL CARE TIME: 40 minutes. cc: Earl Kim MD
[2016-11-25] MEDS: LIPOSYN 20% 250 ML IV SCH (14:48)
[2016-11-25] MEDS: TPN ELECTROLYTES 20 ML, MAGNESIUM SULFATE 5 MEQ, POTASSIUM CHLORIDE 35 MEQ, M.V.I.-12 1... IV SCH ×8 (14:48)
[2016-11-25] MEDS: DULCOLAX PR SCH (20:24)
--- NOTE | 2016-11-25 20:38 | PROGRESS NOTE ---
DATE: 11/25/2016 SUBJECTIVE: The patient states that she is feeling "okay". She denies abdominal pain at the present. However, she continues to have gas pressure in her upper abdomen. She notes interval improvement with the simethicone, but has not completely resolved. She reports increased thirst and would like to have a sips of clear liquids and ice chips. OBJECTIVE: General: On exam, she is in no acute distress. Vital signs: Her blood pressure is 100/53, pulse 110, respiration 20, temp of 98.6 degrees. Abdomen: Remains distended and firm. Her G-tube rotates freely in the left upper quadrant. There is minimal drainage. OBJECTIVE DATA: Remarkable for hemoglobin of 9.5 with hematocrit of 29.9, and a white count of 7. Her MCV is 74.8, with an MCH of 23.8, and 526,000 platelets. Sodium is 144, potassium 4.4, chloride 108, CO2 27, BUN 21, creatinine 0.4 with a glucose of 137. Calcium is 8.5, phosphorus 3.3, magnesium 2 and a pre-albumin of 7.8. Her AST is 27, triglycerides 52 and cholesterol 49. IMPRESSION: 1. Bowel obstruction secondary to metastatic ovarian cancer. 2. Protein calorie malnutrition. 3. Severe erosive esophagitis. 4. Gastritis. 5. Peptic ulcer disease. RECOMMENDATION: 1. Continue decompressive PEG to low intermittent suction. 2. Continue simethicone. 3. Continue parenteral nutrition for nutrition support. 4. She may have ice chips and sips of clear liquids for palliation. 5. The patient's overall prognosis is poor. The team plans to transfer her to LTAC for ongoing care. We will continue to monitor her clinical course. cc: MD Dahlia Daniel MD [facility]
[2016-11-26] MEDS: DILAUDID IV PRN ×3 (02:39→11:54)
[2016-11-26] MEDS: HUMALOG SUBQ SCH ×3 (02:39→10:48)
[2016-11-26] MEDS: XOPENEX NEB INH SCH ×2 (03:40→09:30)
[2016-11-26] MEDS: SODIUM CHLORIDE 0.9% INJ SCH (05:19)
[2016-11-26] MEDS: CARAFATE LIQUID PO SCH ×2 (05:19→11:54)
[2016-11-26] MEDS: PROTONIX IV SCH (05:19)
[2016-11-26 06:07] LABS: AGAP 11; BUN 22 mg/dL (8-22); CALCIUM 8.4 mg/dL (8.8-10.2); CHLORIDE 106 mmol/L (98-107); COSMO 290; GOT 25 U/L (10-30); POTASSIUM 4.4 mmol/L (3.5-5.1); SODIUM 143 mmol/L (136-145); TCO2 26 mmol/L (25-35); TRIGLYCERIDES 46 mg/dL (35-135)
[2016-11-26 06:50] LABS: PREALBUMIN 7.9 mg/dL (20-40)
--- NOTE | 2016-11-26 09:13 | Diag Imaging Result Doc PS360 ---
EXAM: CHEST-PORTABLE INDICATION: Pleural effusion TECHNIQUE: One view COMPARISON: 11/24/2016 FINDINGS: The left chest tube and the right PICC line are in stable positions. There are increased interstitial markings suggesting edema. This is similar to the previous study. There is suggestion of bilateral moderate-sized pleural effusions. The effusion on the left appears to have worsened. There is adjacent atelectasis and/or infiltrate. The cardiac silhouette is stable. IMPRESSION: Apparent increase in size of the left pleural effusion. Essentially stable, otherwise. Electronically signed by Walter Pelayo 11/26/2016 9:11 AM
[2016-11-26] MEDS: LOVENOX SUBQ SCH (09:35)
[2016-11-26] MEDS: LANTUS SUBQ SCH (09:35)
[2016-11-26] MEDS: MYLICON PO SCH ×2 (09:35→14:26)
--- NOTE | 2016-11-26 10:14 | DISCHARGE SUMMARY ---
ADMISSION DATE: 11/19/2016 DISCHARGE DATE: 11/26/2016 CONSULTATIONS: 1. Dr. Weaver with Pulmonology. 2. Dr. Tom Dunbar. 3. Dr. Albert with Hematology/Oncology. PERTINENT PROCEDURES: 1. Pulmonary arteriogram showed no pulmonary emboli, large bilateral pleural effusions. 2. Ultrasound-guided right thoracentesis, where 300 mL of blood-tinged, fairly clear liquid was drained from the right pleural space. 3. Left-sided PleurX catheter placement performed by Dr. Tom Dunbar. DISCHARGE DIAGNOSES: 1. Recurrent bilateral malignant pleural effusions, status post left PleurX catheter placement by Dr. Tom Dunbar. The patient will continue with supplemental oxygen. She had an ultrasound- guided thoracentesis on 11/19/2016 on the right where they removed 1300 mL of blood-tinged fluid. The patient is being transferred to long-term acute care. 2. Ovarian cancer with peritoneal carcinomatosis, followed by Oncology. Status post percutaneous endoscopic gastrostomy tube with low-intermittent suction. 3. Status post percutaneous endoscopic gastrostomy tube placement. Continue with low- intermittent suction. 4. Nutritional status. The patient continues on total parenteral nutrition. HOSPITAL COURSE: Briefly, Ms. Bolton is an unfortunate, 76-year-old, female with a history of ovarian cancer with intraabdominal carcinomatosis, as well as recurrent bilateral malignant pleural effusions. She was discharged from our service the day before her readmission. She was here for a month for shortness of breath and recurrent pleural effusions. During that time, she had multiple thoracenteses and antibiotic therapy. She was discharged the day before her readmission, and stated that she became extremely short of breath, woke up in the morning with severe shortness of breath, and called 911. Initial O2 saturations reported by EMS were low. She was on TPN at home. In the ED, she was noted to have bilateral pleural effusions on chest x-ray. A CTA of the chest showed fairly profound bilateral pleural effusions occupying two-thirds of both lungs. Lab data showed a plasma lactate of 2.5, but otherwise unchanged from previous labs. At the patient's request, she remained a full code and was moved to the ICU. She underwent a right- sided thoracentesis, where they were removed 1300 mL of blood-tinged fluid. Dr. Albert was reconsulted, as well as Dr. Weaver and Dr. Tom Dunbar. The patient's ovarian carcinoma is stage IV. She had only received 1 dose of chemotherapy, but has not received any more since that time. She did receive a PEG tube for a small-bowel obstruction, that is to low-intermittent wall suction. She was continued on TPN for her nutrition. She also underwent a left PleurX catheter placement by Dr. Dunbar. She has had good drainage out from her PleurX catheter site, I believe the total is around 1850. Ms. Bolton has remained in the ICU since her admission. The patient has a poor prognosis. The patient and the family are aware, but the patient does want to continue to seek treatment. They do wish to go to LTAC to see if they can continue to get the patient stronger, and then from there, after a few weeks, they may consider hospice at that time. The patient will be discharged to LTAC in [place]. VITAL SIGNS: Temperature is 98.3 degrees, heart rate 105, respirations 12, blood pressure is 110/53, O2 is 98% on 2 L nasal cannula. DIET: The patient is on TPN. We have printed out orders. DISCHARGE MEDICATIONS: As per Dr. Moreno. Please see MAR. DISPOSITION: The patient is being transferred to LTAC. She will need to follow up with Dr. Tom Dunbar in 1 to 2 weeks for followup. TIME SPENT: Discharge time was greater than 40 minutes. Dictated by KEYSHA Bennett for Earl Kim MD cc: Earl Kim MD
[2016-11-26 13:29] VITALS: BP 118/55
[2016-11-26] MEDS ORDERED: ATIVAN IV PRN (14:12)
== END 2016-11-26 15:14 ==
LOC: ED 07:20 → ICU 11:54 → SUATTDRO 11:54
PROVIDERS: ATTEND Internal Medicine